=== PATIENT | female | born 1955 | race Caucasian/White ===

== ENCOUNTER 2019-07-18 13:20 | Emergency (ER) | payer OTHER, SELFPAY ==
[2019-07-18] VITALS (8 sets, daily range): BP systolic 114–155; BP diastolic 74–103; PULSE 70–174; RESP 16–35; TEMP 37.1; O2SAT 96–99; BMI 32.3
[2019-07-18] MEDS: Adenosine 6 MG/2 ML Syringe IV (13:35)
[2019-07-18] MEDS: Adenosine 6 MG/2 ML Syringe 12 MG IV ×2 (13:37→13:40)
[2019-07-18] MEDS: Ondansetron 4 MG/2 ML Vial IV (13:42)
--- NOTE | 2019-07-18 13:45 | EKG12_ITS ---
Test Reason : REPEAT Blood Pressure : / mmHG Vent. Rate : 088 BPM Atrial Rate : 088 BPM P-R Int : 168 ms QRS Dur : 084 ms QT Int : 398 ms P-R-T Axes : 069 055 058 degrees QTc Int : 481 ms Sinus rhythm with Premature supraventricular complexes Low voltage QRS (limb leads) Nonspecific ST abnormality Abnormal ECG Confirmed by AURORA MUELLER, BHANU ([id number]), editor & co founder BRAYAN NICHOLS ([id number]) on 07/19/2019 1:33:07 PM Referred By: MACKENZIE Confirmed By:BHANU SIMON MD
[2019-07-18] MEDS: dilTIAZem 25 MG/5 ML Vial 20 MG IV BOLUS (13:47)
[2019-07-18 13:52] LABS: Absolute Lymphocyte Count 2.45 X10^3/uL (0.83-4.51); Absolute Neutrophil Count 3.8 X10^3/uL (2.0-7.7); Basophil# 0.05 X10^3/uL; Basophil% 0.7 % (0-1); Eosinophil# 0.12 X10^3/uL; Eosinophils% 1.7 % (0-5); Hematocrit 42.1 % (37-47); Lymphocyte # 2.45 X10^3/ul (4.0); Lymphocyte % 34.6 % (19-41); Mean Corp Hgb Conc 33.3 g/dL (32-36); Mean Corpuscular Hgb 30.8 pg (27.0-32.0); Mean Corpuscular Volume 92.5 fL (81-99); Mean Platelet Vol. 9.1 fl (6.2-12.0); Monocyte# 0.62 X10^3/uL; Monocyte% 8.7 % (0-10); NRBC Flagged by Analyzer 0 % (0-5); Neutrophil # 3.83 X10^3/uL (2.7-7.7); Platelet Count 327 K/mm3 (150-450); RBC Distribution Width SD 40.9 fl (35.1-43.9); Red Blood Count 4.55 M/mm3 (4.2-5.4); White Blood Count 7.1 K/mm3 (4.4-11.0)
[2019-07-18 14:05] LABS: Anion Gap 10 (5-15); BUN 13 mg/dL (7-18); BUN/Creat Ratio 14.9 RATIO (10-20); Calcium,Total 8.9 mg/dL (8.5-10.1); Chloride 104 mmol/L (98-107); Creatinine, Serum 0.88 mg/dL (0.55-1.02); EST Glomerular Filtration Rate 70 mL/min (>60); Est Glom Filt Rate - Afr Amer 84 mL/min (>60); Estimated Creatinine Clearance 62.05 ml/min; Glucose 102 mg/dL (74-106); Potassium 3.5 mmol/L (3.5-5.1); Sodium Level 137 mmol/L (136-145)
--- NOTE | 2019-07-18 14:33 | EKG12_ITS ---
Test Reason : SVT Blood Pressure : / mmHG Vent. Rate : 174 BPM Atrial Rate : 170 BPM P-R Int : 000 ms QRS Dur : 098 ms QT Int : 266 ms P-R-T Axes : 000 063 038 degrees QTc Int : 452 ms Low voltage QRS (Limb Leads) ST-segment abnormality,consider metaboli effect, medication effect, myocardial ischmia Abnormal ECG Confirmed by AURORA MUELLER, BHANU ([id number]), index editor BRAYAN NICHOLS ([id number]) on 07/19/2019 1:36:01 PM Referred By: ALEXEI Confirmed By:BHANU SIMON MD
--- NOTE | 2019-07-18 14:49 | ED.VISSUMM ---
- ER Visit Summary Date of Service: 07/18/19 Chief Complaint: Chest heavy, jittery History of Present Illness: The patient is a 64 F who comes in today because her chest feels heavy and she feels jittery. She is also been feeling palpitations. It started about an hour and a half ago. She does also feel mildly short of breath with this. She has no history of SVT in the past but has had short episodes like this before that have resolved spontaneously. She denies any cardiac history. She is on no medications for blood pressure at home. Physical Examination: Vital signs reviewed. HEENT exam unremarkable. Heart is tachycardic and regular rhythm without murmurs. Lungs are clear to auscultation. Abdomen is soft and nontender. Extremities reveal no edema. Her peripheral pulses are equal. Skin exam normal. Neurologic exam normal. Test Results: Initial EKG was SVT with a rate of 160. Nonspecific changes are seen. Her labs are all normal Emergency Department Course and Treatment: The patient's initial rhythm was SVT. She was given 6 mg, then 2 doses of 12 mg of adenosine without resolution of the SVT. She was then given 20 mg of IV Cardizem IV push. She then converted to a sinus rhythm with a rate in the 80s and 90s. Her labs are all normal. Her blood pressure remained normal throughout the entire stay. I discussed with Dr. Swartz with cardiology. He recommended 25 mg of metoprolol daily. He will have his office call the patient for follow-up. Treatment Plan: [] Disposition: Discharge Impression: SVT This note was generated with [employer] dictation software. It may contain incorrect words, spelling, and punctuation that were not noted in review of the chart prior to signing ED Disposition - Plan for ED Patient: Disposition: Home or Assisted Living Instructions: ED Palpitations Prescriptions: Metoprolol Succinate [Toprol Xl] 25 mg PO DAILY #30 tab.er.24h Transmission Status: Pending to [facility]/pharmacy #[id number] Referrals: Dom Godinez MD [Primary Care Provider] -
== END 2019-07-18 15:00 | disposition home or self-care (01) ==
PROVIDERS: Emergency Provider Emergency Medicine; PCP Family Medicine
DX: I47.1 Supraventricular tachycardia (principal); F32.9 Major depressive disorder, single episode, unspecified
CPT/HCPCS: 80048; 84484; 85025; 93005; 96374; 96375; 96376; 99285; J7030; A4216; J0153; J2405

== ENCOUNTER → 2019-08-01 12:56 | Outpatient (CLI) | payer OTHER, SELFPAY ==
[2019-07-26 13:51] VITALS: BMI 32.5
--- NOTE | 2019-08-01 12:59 | ECHOD_ITS ---
Reason For Study: ARRHYTHMIA Procedure This was a 2D Doppler, Color Flow transthoracic echocardiogram. Exam performed in department. Left Ventricle Normal LV size. Left ventricular systolic function is normal. The estimated ejection fraction is 64 %. Normal diastology for age. No regional wall motion abnormalities noted. Right Ventricle Normal RV size. Normal systolic function. Atria Normal left atrium. Normal right atrium. Mitral Valve Normal mitral valve. Tricuspid Valve Normal tricuspid valve. Mild (1+) tricuspid valve insufficiency. Pulmonary artery systolic pressure is 25 mmHg. Pulmonic Valve Normal pulmonic valve. Great Vessels Normal aortic root. The pulmonary artery is normal size. Normal inferior vena cava. Pericardium/Pleural No pericardial effusion. MMode/2D Measurements & Calculations LVIDd: 4.6 cm IVSd: 0.61 cm Ao root diam: 3.0 cm LVIDs: 2.9 cm LVPWd: 0.73 cm RVDd: 3.5 cm FS: 36.7 % LAV(MOD-bp): 41.8 ml LA A4 area: 16.7 cm2 LA dimension(2D): 3.5 cm LAV(MOD-bp) Indexed: 21.8 ml/m2 LAV(MOD-sp2): 39.6 ml LAV(MOD-sp4): 44.2 ml RA A4 area: 16.2 cm2 Time Measurements MV dec time: 0.21 sec Doppler Measurements & Calculations MV E max hong: 77.1 cm/sec Lat Peak E' Hong: 12.6 cm/sec Med Peak E' Hong: 11.6 cm/sec MV A max hong: 67.6 cm/sec E/E' lat: 6.1 E/E' med: 6.6 MV E/A: 1.1 Ao V2 max: 132.5 cm/sec LV V1 max: 134.3 cm/sec PA V2 max: 106.7 cm/sec Ao max P.0 mmHg LV V1 max P.2 mmHg TR max hong: 234.5 cm/sec TR max P.1 mmHg Interpretation Summary Normal LV size. Left ventricular systolic function is normal. The estimated ejection fraction is 64 %. Structurally normal valves. Ordering Physician: Grayson Swartz Referring Physician: MD Gretchen Dom Performed By: Marcia Gregg, RDCS, RVT
== END ==
PROVIDERS: PCP Family Medicine; Referring Provider Internal Medicine Cardiovascular Disease; Visit Provider Internal Medicine Cardiovascular Disease
DX: I47.1 Supraventricular tachycardia (principal)
CPT/HCPCS: 93306

== ENCOUNTER 2019-08-13 10:52 | Emergency (ER) | payer OTHER, SELFPAY ==
[2019-07-26 13:51] VITALS: BMI 32.5
[2019-08-13 10:52] VITALS: BP 152/125; PULSE 154; RESP 16; TEMP 36.5; O2SAT 99; BMI 32.5
--- NOTE | 2019-08-13 11:02 | EKG12_ITS ---
Test Reason : REPEAT Blood Pressure : / mmHG Vent. Rate : 121 BPM Atrial Rate : 121 BPM P-R Int : 146 ms QRS Dur : 074 ms QT Int : 330 ms P-R-T Axes : 046 050 052 degrees QTc Int : 468 ms Sinus tachycardia Nonspecific ST abnormality Abnormal ECG Confirmed by ANGELA العراقي MD ([id number]), communications editor CHASIDY HERRING ([id number]) on 08/16/2019 10:51:10 AM Referred By: BONNY Confirmed By:ANGELA العراقي MD
--- NOTE | 2019-08-13 11:02 | RAD_ITS ---
STUDY: X-RAY CHEST REASON FOR EXAM: Female, 64 years old. PALPITATIONS X 2 HOURS TECHNIQUE: Frontal view COMPARISON: May 14, 2012 FINDINGS: The lungs are clear and expanded. There is no demonstrated pleural abnormality. Normal size heart. Normal mediastinum and sharla. Normal visualized pulmonary arteries. Normal visualized aortic arch and descending thoracic aorta. Normal visualized thoracic spine. Normal visualized ribs, clavicles, and shoulders. There is no demonstrated abnormality of the visualized soft tissue structures of the upper abdomen. RAD/Chest 1 View (Portable) IMPRESSION: Normal x-ray examination of the chest. Electronically Signed: Dash Reyes DO at 11:34 EDT Tel [phone], Service support ,
--- NOTE | 2019-08-13 11:04 | ED.DCSUM_ITS ---
History of Present Illness Chief Complaint: Palpitations Informant: Patient Onset: Hours - 1 hour Context: Sudden Onset Current Severity: Moderate Maximum Severity: Moderate Narrative: Patient presents with abrupt onset of rapid heart rate 1 hour ago. Patient was seen in the ER on July 17 with similar. She was found to be in SVT at that time. She was given adenosine, 6, 12, and 12 mg doses without conversion. She was then given 20 mg of IV Cardizem and converted to a sinus rhythm. Patient did follow-up with cardiology as an outpatient. She was given metoprolol to use as needed if she has further episodes. After the episode started 1 hour ago she did take 50 mg of metoprolol. Patient denies chest pain. She does have palpitations and some slight shortness of breath. - Past Medical History (1) GERD (gastroesophageal reflux disease) Status: Chronic (2) Paroxysmal supraventricular tachycardia Status: Chronic Past Medical History - Allergies and Home Meds Allergies/Adverse Reactions: Allergies No Known Allergies Allergy (Verified 07/26/19 13:52) Primary Care Physician: Dom Godinez MD [Primary Care Provider] - Doctors: Dr. Swartz Prior records reviewed: Yes Lives: Spouse/ Significant Other Smoking Status: Never smoker Review of Systems General: Denies: Chills, Fever Eyes: Denies: Visual changes - bilaterally ENT: Denies: Bilateral ear pain Cardiovascular: Reports: Palpitations, Heart racing Respiratory: Reports: Dyspnea. Denies: Cough Gastrointestinal: Denies: Abdominal pain, Nausea, Vomiting, Diarrhea Genitourinary: Denies: Dysuria Musculoskeletal: Denies: Swelling, Extremity Pain Skin: Denies: Rash Neurological: Denies: Headache Hematologic: Denies: Easy bruising, Easy bleeding Allergy: Denies: Uticaria Physical Exam Vital Signs/Narrative: Vital Signs Temp Pulse Resp BP Pulse Ox 08/13/19 10:52 97.7 F L 154 H 16 152/125 H 99 Inital Vital Signs reviewed: Yes General: Well nourished, Well developed Head: Normocephalic ENT: Moist mucous membranes Neck: Supple Cardiovascular: Tachycardia Respiratory: No distress, CTA bilaterally Abdomen: Soft, Nontender Extremities: Nontender Skin: Normal color, No rash Neurological: Alert, Oriented x3 Psychological: Normal affect Diagnostic/Tx/Re-eval Impressions Chest X-Ray 08/13/19 11:02 IMPRESSION: Normal x-ray examination of the chest. Electronically Signed: Dash Reyes DO at 11:34 EDT Tel [phone], Service support , 08/13/19 11:02 Chest 1 View (Portable) [RAD] Stat Laboratory Results 08/13/19 08/13/19 11:00 11:00 WBC 6.0 RBC 4.42 Hgb 13.6 Hct 41.4 MCV 93.7 MCH 30.8 MCHC 32.9 RDW Std Deviation 41.9 RDW Coeff of Lawanda 12.1 Plt Count 278 MPV 8.5 Immature Gran % (Auto) 0.500 Neut % (Auto) 53.8 Lymph % (Auto) 32.5 [place] % (Auto) 9.3 Eos % (Auto) 3.2 Baso % (Auto) 0.7 Absolute Neuts (auto) 3.3 Absolute Lymphs (auto) 1.96 Nucleated RBC % 0 Sodium 137 Potassium 3.6 Chloride 105 Carbon Dioxide 26.0 Anion Gap 6 BUN 13 Creatinine 0.80 Estim Creat Clear Calc 62.96 Est GFR (MDRD) Af Amer 93 Est GFR (MDRD) Non-Af 77 BUN/Creatinine Ratio 16.2 Glucose 107 H Calcium 8.7 Troponin I < 0.015 TSH 2.53 - EKG Initial EKG Interpretation: SVT - SVT at 151. Mild anterolateral ST depression. Follow-up EKG Interpretation: Sinus Tachycardia - Sinus tach at 121. Previously noted ST changes are improved. - Medical Decision Making We initially attempted vagal maneuvers without resolution of her SVT. Patient was given 6 of adenosine followed by 12 mg. She converted to a sinus tachycardia. On repeat evaluation she is resting comfortably with no further symptoms. Blood work is unremarkable. Patient had been given a prescription for metoprolol. Because she had had previous chest heaviness and reflux with beta-blockers she been told to use it as needed. After discussion with Dr. Maguire we will start the patient on Cardizem 120 mg a day. She is to follow- up with Dr. Swartz in the office for an EP referral. ED Disposition - Plan for ED Patient: Disposition: Home or Assisted Living Diagnosis: SVT (supraventricular tachycardia) Instructions: ED Tachycardia PAT Prescriptions: Diltiazem CD [Cardizem CD] 120 mg PO DAILY #30 cap Transmission Status: Pending to [facility]/pharmacy #[id number] Referrals: Grayson Swartz MD [STAFF PHYSICIAN] - As soon as possible
[2019-08-13 11:13] LABS: Absolute Lymphocyte Count 1.96 X10^3/uL (0.83-4.51); Absolute Neutrophil Count 3.3 X10^3/uL (2.0-7.7); Basophil# 0.04 X10^3/uL; Basophil% 0.7 % (0-1); Eosinophil# 0.19 X10^3/uL; Eosinophils% 3.2 % (0-5); Hematocrit 41.4 % (37-47); Hemoglobin 13.6 g/dL (12.0-15.0); Lymphocyte # 1.96 X10^3/ul (4.0); Lymphocyte % 32.5 % (19-41); Mean Corp Hgb Conc 32.9 g/dL (32-36); Mean Corpuscular Hgb 30.8 pg (27.0-32.0); Mean Corpuscular Volume 93.7 fL (81-99); Mean Platelet Vol. 8.5 fl (6.2-12.0); Monocyte# 0.56 X10^3/uL; Monocyte% 9.3 % (0-10); NRBC Flagged by Analyzer 0 % (0-5); Neutrophil # 3.25 X10^3/uL (2.7-7.7); Neutrophil % 53.8 % (47-70); Platelet Count 278 K/mm3 (150-450); RBC Distribution Width CV 12.1 % (11.6-14.6); RBC Distribution Width SD 41.9 fl (35.1-43.9); Red Blood Count 4.42 M/mm3 (4.2-5.4)
[2019-08-13 11:30] VITALS: BP 152/89; PULSE 148; RESP 15; O2SAT 98
[2019-08-13] MEDS: 0.9% Normal Saline 1,000 ML 150 ML IV (11:30)
[2019-08-13] MEDS: Adenosine 6 MG/2 ML Syringe IV (11:35)
[2019-08-13 11:36] LABS: Anion Gap 6 (5-15); BUN 13 mg/dL (7-18); BUN/Creat Ratio 16.2 RATIO (10-20); Calcium,Total 8.7 mg/dL (8.5-10.1); Chloride 105 mmol/L (98-107); EST Glomerular Filtration Rate 77 mL/min (>60); Est Glom Filt Rate - Afr Amer 93 mL/min (>60); Estimated Creatinine Clearance 62.96 ml/min; Glucose 107 mg/dL (74-106); Potassium 3.6 mmol/L (3.5-5.1); Sodium Level 137 mmol/L (136-145); Thyroid Stim Hormone (TSH) 2.53 uIU/mL (0.358-3.74)
[2019-08-13 11:41] VITALS: BP 147/83; PULSE 115; RESP 15; O2SAT 95
[2019-08-13] MEDS: Adenosine 6 MG/2 ML Syringe 12 MG IV (11:43)
--- NOTE | 2019-08-13 11:51 | EKG12_ITS ---
Test Reason : SVT Blood Pressure : / mmHG Vent. Rate : 151 BPM Atrial Rate : 039 BPM P-R Int : 000 ms QRS Dur : 088 ms QT Int : 300 ms P-R-T Axes : 000 052 025 degrees QTc Int : 475 ms Supraventricular tachycardia Nonspecific ST abnormality Abnormal ECG Confirmed by DULCE MARIA MUELLER, ANGELA ([id number]), metropolitan editor CHASIDY HERRING ([id number]) on 08/16/2019 10:50:58 AM Referred By: BONNY Confirmed By:ANGELA العراقي MD
[2019-08-13 12:00] VITALS: BP 136/79; PULSE 104; RESP 14; O2SAT 95
[2019-08-13 12:19] VITALS: PULSE 106; RESP 15; O2SAT 95
== END 2019-08-13 12:31 | disposition home or self-care (01) ==
PROVIDERS: Emergency Provider Emergency Medicine; PCP Family Medicine
DX: I47.1 Supraventricular tachycardia (principal); K21.9 Gastro-esophageal reflux disease without esophagitis
CPT/HCPCS: 71045; 80048; 84443; 84484; 85025; 93005; 96361; 96374; 96376; 99284; J7030; A4216; J0153

== ENCOUNTER → 2019-10-19 10:45 | Outpatient (CLI) | payer OTHER, SELFPAY | PROVIDERS: PCP Family Medicine; Referring Provider Internal Medicine Cardiovascular Disease; Visit Provider Internal Medicine Cardiovascular Disease | DX: Z11.59 Encounter for screening for other viral diseases (principal); I47.1 Supraventricular tachycardia | CPT/HCPCS: 87635; G2023; U0003 ==

== ENCOUNTER → 2020-03-13 16:18 | Outpatient (CLI) | payer OTHER, SELFPAY ==
[2020-03-13 15:28] VITALS: BMI 35.0
[2020-03-13 17:31] LABS: Anion Gap 5 (5-15); BUN 14 mg/dL (7-18); BUN/Creat Ratio 16.4 RATIO (10-20); Calcium,Total 9.2 mg/dL (8.5-10.1); Chloride 105 mmol/L (98-107); Creatinine, Serum 0.85 mg/dL (0.55-1.02); EST Glomerular Filtration Rate 72 mL/min (>60); Est Glom Filt Rate - Afr Amer 87 mL/min (>60); Glucose 87 mg/dL (74-106); Magnesium 2.1 mg/dL (1.6-2.6); Potassium 3.7 mmol/L (3.5-5.1); Sodium Level 137 mmol/L (136-145)
== END ==
PROVIDERS: PCP Family Medicine; Visit Provider Internal Medicine Cardiovascular Disease
DX: R00.2 Palpitations (principal)
CPT/HCPCS: 36415; 80048; 83735

== ENCOUNTER → 2020-03-15 10:27 | Outpatient (CLI) | payer OTHER, SELFPAY ==
[2020-03-13 15:28] VITALS: BMI 35.0
== END ==
PROVIDERS: PCP Family Medicine; Referring Provider Internal Medicine Cardiovascular Disease; Visit Provider Internal Medicine Cardiovascular Disease
DX: R00.2 Palpitations (principal)
CPT/HCPCS: 93225; 93226

== ENCOUNTER → 2020-04-19 12:30 | Outpatient (CLI) | payer OTHER, SELFPAY ==
[2020-03-13 15:28] VITALS: BMI 35.0
== END ==
PROVIDERS: PCP Family Medicine; Referring Provider Internal Medicine Cardiovascular Disease; Visit Provider Internal Medicine Cardiovascular Disease
DX: G47.10 Hypersomnia, unspecified (principal)
CPT/HCPCS: 95806

== ENCOUNTER → 2020-05-16 10:22 | Outpatient (CLI) | payer OTHER, SELFPAY ==
[2020-04-24 09:53] VITALS: BMI 35.2
== END ==
PROVIDERS: PCP Family Medicine; Visit Provider Nurse Practitioner Acute Care
DX: Z46.89 Encounter for fitting and adjustment of other specified devices (principal)

== ENCOUNTER → 2020-07-03 11:00 | Outpatient (CLI) | payer OTHER, SELFPAY ==
[2020-06-20 07:52] VITALS: BMI 35.0
== END ==
PROVIDERS: PCP Family Medicine; Referring Provider Nurse Practitioner Acute Care; Visit Provider Nurse Practitioner Acute Care
DX: G47.33 Obstructive sleep apnea (adult) (pediatric) (principal)
CPT/HCPCS: 98960; G0463

== ENCOUNTER → 2020-08-02 | Outpatient (CLI) | payer OTHER, SELFPAY ==
[2020-06-20 07:52] VITALS: BMI 35.0
--- NOTE | 2020-08-02 | CYSPIN_PTH ---
PATIENT: SANTIAGO GUADALUPE LOC: [facility] U#:[id number] AGE/SX: 65/F ROOM: RE08/02/[address]: Dr. Kelly Uribe MD : [id number] BED: DIS: 08/02/2020 SPEC #: [id number] RECD: 08/03/20 08:03 STATUS: BRUCE RESelena #: [id number] DAVID: 08/02/20 00:[address]: Kelly Uribe DEPT: CYTOLOGY RECD BY: Tori Jenkins ENTERED: 08/03/20 08:04 SP TYPE: CYSPIN FL OTHR DR: Dr. Dom Godinez MD Tissues: Urine Procedures: Pap Stain (control) Special Stain Group II Cytospin Fluid HEADER OPERATION: Not noted PRE-OP DIAGNOSIS: UTI, gross hematuria TISSUE SUBMITTED: Urine for cytology DIAGNOSIS CYTOLOGY Urine for cytology (cytospin): Negative for malignant cells. Acute inflammation. See comment. SJ:gabe 08/03/2020 COMMENT The specimen predominantly consists of squamous epithelial cells. Clinical correlation and appropriate follow up are necessary. CYTOLOGY STUDY Slides are reviewed. CYTOLOGY GROSS Received is 10 ml of yellow cloudy fluid labeled with the patient's name and and designated per the requisition as urine. Submitted for cytology preparation. / gabe 08/02/20 TC:2 CPT: 03688
[2020-08-02 17:56] LABS: Cytology, Body Fluid / CSF SEE PATHOLOGY REPORT
== END | disposition home or self-care (01) ==
PROVIDERS: PCP Family Medicine; Visit Provider Urology
DX: N39.0 Urinary tract infection, site not specified (principal); R31.0 Gross hematuria
CPT/HCPCS: 88108; 88313

== ENCOUNTER → 2020-08-20 15:04 | Outpatient (CLI) | payer OTHER, SELFPAY ==
[2020-06-20 07:52] VITALS: BMI 35.0
--- NOTE | 2020-08-20 15:08 | CT_ITS ---
STUDY: CT ABDOMEN AND PELVIS WITH AND WITHOUT CONTRAST REASON FOR EXAM: Female, 65 years old. GROSS Hematuria, uti RADIATION DOSAGE (If Supplied By Facility): CTDIvol = ( 19.93 ) mGy, DLP = ( 3318.19 ) mGycm TECHNIQUE: Transaxial images were obtained from the dome of the diaphragm to the symphysis pubis without oral contrast. IV 100mL Isovue-300 was administered. Sagittal and coronal images were reconstructed. Individualized dose optimization techniques were used for this CT. COMPARISON: None. FINDINGS: The visualized lung bases are unremarkable. The visualized portions of the heart are within normal limits. Normal liver. Normal gallbladder and extrahepatic biliary system. Normal spleen. Normal pancreas. Normal bilateral adrenal glands. Normal right kidney. Punctate calculus in the lower pole calyx of the left kidney. There is a small hiatal hernia. Normal small intestine. Normal colon. The appendix is visualized and appears normal. Normal abdominal aorta. Normal inferior vena cava. There is borderline retroperitoneal lymphadenopathy with enlarged nodes no greater than 10mm in the short axis diameter. Normal urinary bladder. There is a small umbilical hernia containing fat. Normal osseous structures. CT/CT Abd/Pelvis W/WO Contrast IMPRESSION: Punctate calculus in the lower pole calyx of left kidney. Small hiatal hernia. Electronically Signed: Pancho Kiran MD at 8:39 EDT , Service support ,
== END ==
PROVIDERS: PCP Family Medicine; Referring Provider Urology; Visit Provider Urology
DX: N39.0 Urinary tract infection, site not specified (principal); R31.0 Gross hematuria; N20.0 Calculus of kidney; K44.9 Diaphragmatic hernia without obstruction or gangrene
CPT/HCPCS: 74178; Q9967

== ENCOUNTER 2020-08-24 15:30 | Emergency (ER) | payer OTHER, SELFPAY ==
[2020-06-20 07:52] VITALS: BMI 35.0
[2020-08-24 15:31] VITALS: BP 154/54; BP 172/69; PULSE 147; PULSE 148; RESP 17; RESP 19; TEMP 36; TEMP 36.4; O2SAT 97; O2SAT 98; BMI 33.7; BMI 36.5
[2020-08-24 15:47] VITALS: BP 142/96; PULSE 105; RESP 20; O2SAT 98
--- NOTE | 2020-08-24 15:54 | EKG12_ITS ---
Test Reason : SVT Blood Pressure : / mmHG Vent. Rate : 104 BPM Atrial Rate : 104 BPM P-R Int : 182 ms QRS Dur : 096 ms QT Int : 360 ms P-R-T Axes : 081 049 076 degrees QTc Int : 473 ms Sinus tachycardia Nonspecific ST abnormality Abnormal ECG Confirmed by DULCE MARIA MUELLER, ANGELA ([id number]), editorial clerk MARQUISE VERA ([id number]) on 08/28/2020 9:34:36 AM Referred By: LASHAE Confirmed By:ANGELA العراقي MD
--- NOTE | 2020-08-24 15:54 | EX.ED.DYSGE1 ---
HPI History of Present Illness Chief Complaint: Palpitations Informant: patient Narrative Narrative: 65-year-old female presents to the emergency department with palpitations. Patient has a history of SVT. She states she currently is on flecainide and diltiazem therapy. She follows locally with Dr. Swartz. She has seen [facility] electrophysiology last summer for an ablation. She states that she took an extra diltiazem and waited an hour nothing changed so she came in. [facility] Medical History (Updated 08/24/20 @ 15:[address] Mj Sigala DO) AVNRT (AV jaleel re-entry tachycardia) Cervical spondylosis without myelopathy Daytime hypersomnia Finding of multiple premature atrial contractions by electrocardiography GERD (gastroesophageal reflux disease) History of depression Hypersomnia Intermittent palpitations Obesity Home Medications estradiol 0.5 mg PO DAILY 04/05/15 [History Last Taken 07/18/19] omeprazole 40 mg PO DAILY 04/05/15 [History Last Taken 07/17/19] fluoxetine 60 mg PO DAILY 07/18/19 [History Last Taken 07/18/19] alprazolam 0.5 mg tablet 0.5 mg PO DAILY PRN tab 07/26/19 [History Last Taken Unknown] medroxyprogesterone 2.5 mg tablet 2.5 mg PO DAILY 07/26/19 [History Last Taken Unknown] diltiazem HCl 120 mg capsule,extended release 24 hr 120 mg PO DAILY #30 cap 02/13/20 [Rx Last Taken Unknown] buspirone 10 mg tablet 5 mg PO BID tab 03/13/20 [History Last Taken Unknown] flecainide 100 mg tablet 100 mg PO BID tab 04/24/20 [History Last Taken Unknown] ropinirole 0.5 mg tablet 0.5 mg PO DAILY #60 tab 06/20/20 [Rx Last Taken Unknown] Allergy/AdvReac Type Severity Reaction Status Date / Time metoprolol AdvReac severe Verified 08/24/20 15:31 fatigue Family History Father Colon cancer Daughter Thyroid disorder Surgical History History of radiofrequency ablation procedure for cardiac arrhythmia (10/24/19) History of tubal ligation uterin ablation Social History Smoking Status: Never smoker alcohol intake: current alcohol intake frequency: holidays/special occasions only caffeine: Yes Type: coffee Number of servings: 1 ROS ROS ED Constitutional Constitutional ED: Denies chills or weight loss Eyes Eyes: Denies change in vision or diplopia ENT ENT ED: Denies ear pain, rhinorrhea or sore throat Cardiovascular Cardiovascular: Reports palpitations and racing heartbeat; Denies chest pain or orthopnea Respiratory/Chest Respiratory/Chest: Denies cough, dyspnea or orthopnea Gastrointestinal Gastrointestinal: Denies abdominal pain, diarrhea, nausea or vomiting Genitourinary Genitourinary ED: Denies dysuria, hematuria or urinary frequency Musculoskeletal Musculoskeletal: Denies arthralgias or myalgias Integumentary Denies abscess or rash Neurologic Neurologic: Denies headache(s) or weakness Psychiatric Psychiatric: Denies anxiety, depression, suicidal ideation or suicidal thoughts Endocrine Endocrinology: Denies polydipsia, polyphagia or polyuria Allergic/Immunologic Allergic/Immunologic ED: Denies mouth swelling, tongue swelling or urticaria EXAM Physical Exam Const Vital Signs: 08/24/20 15:31 08/24/20 15:43 08/24/20 15:47 Temperature 96.8 F L Temperature Source Temporal Pulse Rate 147 H 105 H Respiratory Rate 19 H 20 H Respiratory Effort Short of Breath Blood Pressure 172/69 H 142/96 H Blood Pressure Mean 103 111 Pulse Ox 97 98 Oxygen Delivery Method Room Air Room Air 08/24/20 16:35 Temperature Temperature Source Pulse Rate 85 Respiratory Rate 16 Respiratory Effort Blood Pressure 106/84 H Blood Pressure Mean 91 Pulse Ox 97 Oxygen Delivery Method Room Air Positive well nourished and well developed General Appearance ED: well developed HEENT Reports normocephalic, head/scalp atraumatic and moist mucous membranes Eyes PERRL and EOMs intact bilaterally Neck no lymphadenopathy, supple and no JVD Resp normal respiratory effort and clear to auscultation bilaterally Cardio regular rate, regular rhythm and no murmurs GI normal to inspection, nondistended, normoactive bowel sounds and non-tender Palpation: soft Back/Spine no CVA tenderness and normal ROM Extremity normal to inspection General Extremety ED: Negative for edema General Extremity: Negative for edema Neuro oriented x3 and CN's II-XII intact bilaterally Sensorium / Orientation: alert Motor Exam: strength 5/5 throughout Psych mental status grossly normal Mood & Affect: Negative for depressed or tearful Skin no rashes or lesions noted and no wounds MDM MDM MDM Narrative Medical decision making narrative: The patient converted while IV was being started. We will observe her. Patient was watched for approximate 45 minutes. Her heart has been in a sinus rhythm in the mid 80s. Very little ectopy. Plan will be follow-up with cardiology. EKG Initial EKG: Attestation: I personally reviewed and interpreted this EKG as follows: Comments: EKG shows a sinus tachycardia at a rate of 104. Discharge Plan Triage Chief Complaint: Palpitations ED Provider: Mj Sigala Dx/Rx/DC Orders Clinical Impression: SVT (supraventricular tachycardia) Instructions: ED Tachycardia: PAT Prescriptions: No Action alprazolam 0.5 mg tablet 0.5 mg PO DAILY PRN (Reason: anxiety) RF: 0 buspirone 10 mg tablet 5 mg PO BID RF: 0 flecainide 100 mg tablet 100 mg PO BID RF: 0 ropinirole 0.5 mg tablet 0.5 mg PO DAILY Qty: 60 RF: 1 omeprazole 40 MG capsule 40 mg PO DAILY RF: 0 estradiol 0.5 MG tablet 0.5 mg PO DAILY RF: 0 medroxyprogesterone 2.5 mg tablet 2.5 mg PO DAILY RF: 0 fluoxetine 40 MG capsule 60 mg PO DAILY RF: 0 diltiazem HCl 120 mg capsule,extended release 24hr 120 mg PO DAILY Qty: 30 RF: 11 Primary Care Provider: Dom Godinez Referrals: Grayson Swartz MD [STAFF PHYSICIAN] - As soon as possible Dom Godinez MD [Primary Care Provider] - Disposition Disposition: Home, self care
[2020-08-24 16:35] VITALS: BP 106/84; PULSE 85; RESP 16; O2SAT 97
[2020-08-24 16:59] VITALS: BP 126/80; PULSE 85; RESP 16; O2SAT 98
== END 2020-08-24 16:59 | disposition home or self-care (01) ==
LOC: ED 16:16
PROVIDERS: Emergency Provider Emergency Medicine; PCP Family Medicine
DX: I47.1 Supraventricular tachycardia (principal); K21.9 Gastro-esophageal reflux disease without esophagitis; F32.9 Major depressive disorder, single episode, unspecified; E66.9 Obesity, unspecified; Z68.36 Body mass index [BMI] 36.0-36.9, adult; Z79.899 Other long term (current) drug therapy
CPT/HCPCS: 93005; 99284; A4216

== ENCOUNTER → 2021-01-08 15:54 | Outpatient (CLI) | payer OTHER, SELFPAY ==
[2021-01-08 16:34] LABS: Anion Gap 7 (5-15); BUN 12 mg/dL (7-18); BUN/Creat Ratio 14.1 RATIO (10-20); Chloride 105 mmol/L (98-107); Creatinine, Serum 0.85 mg/dL (0.55-1.02); EST Glomerular Filtration Rate 71 mL/min (>60); Est Glom Filt Rate - Afr Amer 86 mL/min (>60); Glucose 93 mg/dL (74-106); Magnesium 2.2 mg/dL (1.6-2.6); Sodium Level 138 mmol/L (136-145); Thyroid Stim Hormone (TSH) 1.52 uIU/mL (0.358-3.74)
== END ==
PROVIDERS: PCP Family Medicine; Referring Provider Nurse Practitioner Gerontology; Visit Provider Nurse Practitioner Gerontology
DX: I47.1 Supraventricular tachycardia (principal)
CPT/HCPCS: 36415; 80048; 83735; 84443

== ENCOUNTER 2021-09-02 08:00 | Outpatient (RCR) | payer OTHER, SELFPAY ==
--- NOTE | 2021-09-02 08:54 | BH.COMM ---
Communication Note - Communication with Client Communication Note: Met with patient to complete initial paperwork. No significant changes since pre-admission screening. Completed [facility] Suicide Screening. Low to moderate risk. Pt has no hx of prior suicide attempts or hospitalizations. Hx of passive thoughts of not caring if something happened to her or if she did not wake up, but not for the past 5 years. Denies any hx of plan or intent. Denies hx of self-harm or vik risk behaviors. Denies access to lethal means. Pt denies hx of HI, plan or intent. Case discussed with Dr. Fritz with plan to admit to IOP level of care with dx of Major depressive disorder, recurrent, severe without psychosis, F33.2
--- NOTE | 2021-09-02 11:10 | BH.SGPN.GN ---
Behaviors/Verbalizations/Mental Status: []Client alert and oriented, casually dressed and groomed. Eye contact fair to good. Motor activity appropriate. Speech within normal limits. Affect congruent, mood anxious and depressed. Thoughts linear, logical, no signs of hallucinations or delusions. Client Response/Progress/Benefit: []Pt responded well to session AEB taking notes and providing input and examples throughout. Group discussed the different categories of coping skills which included distraction, emotional release, grounding, self-love, and thought challenging. Pt created a coping skill menu identifying various skills to try in each category. Pt?s coping skill menu included: spending time with pets, taking walks, yoga, reducing how much pt apologizes, and reminding self that thoughts are thoughts not facts. Appeared to benefit from increasing repertoire of healthy coping skills. Pt?s first day of IOP tx. Will continue tx to prevent decompensation, improve overall functioning, and gain healthy coping skills. Narrative Note: []
--- NOTE | 2021-09-02 12:41 | BH.PSY.EVA_ITS ---
Psychiatric Evaluation Initial Evaluation Initial Evaluation: History of Present Illness: [] The patient is a 66-year-old female with a history of depression and anxiety who was referred to the [facility] behavioral health IOP program by her outpatient psychiatric provider for worsening depression for the past several months. The patient currently lives with her of 11 years who is very supportive of her. 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 During COVID she did return to work and helped out during COVID and this ended 6 months ago. Her daughter has been going through her divorce in the past 6 to 8 months and the patient was very close to her daughter and her daughter's and this has also been a stressor and upsetting to her. She feels it is possible that this daughter's divorce has triggered the patient's feelings about her very difficult divorce that happened from her first 14 years ago. Her ex- was a conveyor line bakery worker and he had affairs for 5 years with 2 of the patient's female friend's and the patient was not aware of it for 5 years. One of the friends was the patient's best girlfriend. She states that it was a very difficult divorce 14 years ago but she was doing better until recent months. She became very depressed and was thinking quite negatively about herself. She states that she hates herself and she has hit her self her whole life but it is much worse lately. She has been isolating due to her depressed mood, lack of motivation and difficulty functioning at home. She has had some recent medication changes that she feels have given her more energy but her low self-esteem persists according to the patient. The patient's mood was severely depressed but has improved since the medication changes were made several months ago. For primary support she has her current and a girlfriend. She was feeling overwhelmed and exhausted in recent months. She endorses crying spells, sadness, hopelessness, worthlessness, guilt. She enjoys taking care of her baby checks and a few other things lately. Her appetite and sleep are okay and she is getting 8 hours of sleep at night. Her energy level is still not up to normal but it has improved since the recent medication changes. Concentration waxes and wanes but could be better. She states that she has felt guilty my whole life. She has a lot of social anxiety now which is the worst part of her anxiety and she dreads any social interaction and has been canceling plans with family and friends. She is worrying a lot lately and ruminating negatively especially on her past divorce in recent months. She feels safer at home but is able to go out when she has to but again dreads social functions. She is having passive thoughts that she would not care if she . She denies active suicidal ideation or plan for suicide but she does admit to occasional passive, fleeting suicidal ideation. She denies homicidal ideation, hallucinations, delusions or symptoms of edy ever. The patient used to rely on her shinto for support but since her was a conveyor line bakery worker she has not been to shinto since 2019 when the pandemic hit and she misses this a little. She denies panic attacks, OCD, eating disorder. She does feel she has some trauma from her very difficult divorce 14 years ago and she has had nightmares, flashbacks and avoidance from this. Current Psychiatric Medications: [] Prozac 60 mg p.o. daily (x30 years, on this dose for 5 years); Wellbutrin SR 100 mg p.o. every morning (x4 to 5 months); Lamictal 150 mg p.o. daily (x4 to 5 months); Xanax 0.25 mg she takes about once a month as needed for severe anxiety. Past Psychiatric History: [] She has no psychiatric admissions ever. No suicide attempts ever. She has a psych nurse practitioner and a counselor. She took Wellbutrin XL before the SR and she could not sleep so that was changed to SR and she only takes it in the morning instead of twice daily. She tends to be constipated. Her first counseling was 12 years ago. She was first depressed in college. She first took medication for depression at age 27 and has mostly been on medication since then. She once tried to stop wean her Prozac and stop it on her own and she had difficulty so went back on it. She also was on Cymbalta for 2 months many years ago and she feels she may have had side effects on it. No other psych meds ever. Substance Use History: [] Non-smoker. No vaping. No marijuana. No drug use. No rehab. Alcohol use only once every 3 months. 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 She had a uterine ablation in the past and a tubal ligation. She is a 3 para 3 Ab0 female with a history of 3 vaginal deliveries without complications. She is postmenopausal. Family Psychiatric History: [] Mother at age 72 as a pedestrian and was run over by a car. Father at age 60 from cancer. Mother and her daughter have depression and possible bipolar disorder.; Both of her siblings have depression and anxiety. Maternal first cousin completed suicide. Maternal cousins have drug addiction and alcohol problems. Personal/Social History: [] The patient was born in [place] raised [place] and moved to [place] after her divorce 14 years ago. She describes her childhood as happy but we walked on egg shells due to my mother's moods. Her mother's moods changed a lot and her mother was abusive verbally and emotionally gave the silent treatment to her children on a regular basis. The patient denies physical or sexual abuse. Her father was kind and loving but he was very passive and the patient has some anger he had him for not sticking up for his children. School was good for her and she graduated high school went to [employer] to get a BS in nursing. 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 She retired about 5 years ago but helps out with education for nursing on occasion. 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 The patient is the middle child and has a sister 2 years older and her brother 7 years younger than her and she is close to both of them. She was for the first time at age 23 and it lasted 25 years. They had 3 children ages 40, 37 and 32 years and the patient has 12 grandchildren whom she is pretty close to. The patient's ex- was a conveyor line bakery worker and he had affairs with 2 of her close girlfriends for 5 years before she even found out in this divorce was very difficult and traumatic for her. She has not been to shinto in several years she feels due to the reemergence of bad feelings about her divorce. Her second marriage was 11 years ago and it is really good and her current is 59 years old and works as a nurse practitioner and they live together and he is very supportive. 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 Review of Systems: [] The patient has some restless legs syndrome on occasion and occasional heart rhythm issues but otherwise review of systems is negative except as noted in present illness. Vital Signs: [] Vital signs and exam were reviewed in nurses notes and updated and the patient is found medically able to complete the IOP program. Mental Status Examination: [] The patient is a 66-year-old female who appears normal for stated age and is casually dressed and groomed with good hygiene. The patient is not wearing a mask. The patient has normal ambulatory gait and has no psychomotor agitation or retardation. Eye contact is good and mood is depressed. Affect is constricted. Thought process is goal-directed and organized. Thought content: There is evidence of passive thoughts of and fleeting suicidal ideations at times which are passive in nature. There is no evidence of active suicidal ideation or definite plan for suicide. There is no evidence of homicidal ideation, hallucinations, delusions or symptoms of edy. Diagnoses: [] 1. Major depressive disorder, recurrent, severe without psychosis 2. Social anxiety disorder (F40.11) 3. Obstructive sleep apnea 4. History of restless leg syndrome 5. Primary support issues Plan: [] The patient will start the IOP program at [facility] as the structure, support, education and group therapy will hopefully prevent worsening of the patient's symptoms which could require hospitalization. She felt safe during the interview and if it anytime she does not feel safe she will let us know or go to the emergency room. The risks, options, possible complications and side effects of the medications were discussed with the patient and she understands and accepts these. Long discussion was had regarding the possibility of weaning the patient's Prozac since she has been on it for many years. The patient agrees to decrease her Prozac to 40 mg p.o. daily. In addition she will start Zoloft 25 mg p.o. every morning for 1 week an d then increase to 50 mg p.o. daily if tolerating it well. I will see the patient in follow-up in 2 weeks and she will continue to follow-up with her outpatient providers. Discussion was had of the importance of becoming aware when the patient is doing negative thoughts and negative rumination which is habitual for her. She agrees to try to stop some of this negative thinking. In addition she will do everything she can to improve her spirituality and fill her life with some of the things that refuel her.
--- NOTE | 2021-09-02 12:58 | BH.DR.ITP ---
Initial Treatment Plan Patient Information Visit Information: ADMISSION DATE: EXPECTED LOS: 4-6 weeks Problems/Symptoms Problem #1:: Depression Symptom:: Sadness, hopelessness, worthlessness, guilt, low energy, decreased concentration, passive thoughts of , fleeting suicidal ideation Problem #2:: Anxiety Symptom:: Worry, rumination, avoidance of social activity, flashbacks, nightmares
--- NOTE | 2021-09-02 12:59 | BH.DR.ITP ---
Initial Treatment Plan Patient Information Visit Information: ADMISSION DATE: EXPECTED LOS: 4-6 weeks
--- NOTE | 2021-09-02 15:06 | BH.MDN_ITS ---
Multi-Disciplinary Note - Note 30-min Individual Time Started:: 12:00 Date: 09/02/21 Purpose of session/treatment goals addressed:: To gather information on client's current stressors, symptoms, triggers, and tx goals. Another goal was to build rapport, provide psychoeducation, and provide emotional support. Eye Contact:: Good Motor Activity:: Appropriate Appearance:: Neat Speech:: Appropriate Mood:: Anxious, Depressed Affect:: Congruent Thoughts:: Linear, Logical, No evidence of hallucinations/delusions noted Staff Interventions:: psychoeducation on: - maintenance cycles, rapport building, strengths perspective, treatment planning - gathered pt's goals for IOP, other - gathered additional psychosocial information Client Response:: Pt responded well to session, open to meeting with therapist. Pt reports she has been depressed for my entire adult life but her symptoms have recently gotten much worse. Pt stated she had a very bad divorce many years ago and now her daughter is going through a divorce. Pt reports belief this could be triggering emotions, thoughts, and somatic issues that occurred during pt's divorce. Pt shared she is ready to get better and set multiple goals for treatment. Pt's goals included: breaking the cycle of self-loathing, having freedom back in her life by not letting her emotions control her, reducing isolating, gaining healthy coping skills, and further processing her divorce tr iggers. Discussed recent triggers that could be contributing to her worsening symptoms and pt mentioned her daughter's divorce. Pt also reported she has been noticing very negative self-talk within the past few months. Pt stated she tells herself she is a loser, not enough, and should be better along. Pt receptive to learning about maintenance cycles and connected with the maintenance cycle for depression. Pt is hopeful that with IOP and her recent medication change that she will get better. Risks/Concerns:: Pt denies any active suicidal ideations, plan, or intent as of 09/02/21. Admits to having thoughts that she would not care if she , but pt shared I have grandkids I want to be around for. Pt denies any HI. future oriented and motivated. Progress Toward Goals/Plan:: Pt's first day of IOP tx. Pt shared she has social anxiety, so group therapy is out of her comfort zone, but pt is willing to do anything at this point. Pt currently endorses a depressed mood, lack of motivation, worthlessness, poor sleep, guilt, and history of fleeting passive SI. Pt reports her symptoms are taking away her freedoms in life and make it hard to do much of anything except lay in bed. Pt has outpatient counseling at [facility] and psychiatry through [facility]. Pt will continue IOP tx to prevent decompensation, increase healthy coping skills, and improve overall functioning. Time Stopped:: 12:20
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
--- NOTE | 2021-09-02 15:08 | BH.MTP_ITS ---
[facility] Treatment Plan - Patient Information Program Physician:: Dr. Shanthi Wayne Primary Therapist:: Annamaria PURCELL - Psychiatric Diagnoses Psychiatric Diagnoses:: Major depressive disorder, recurrent, severe without psychosis F 33.2; Social anxiety disorder F 40.11 Diagnosis Code(s):: F33.2 - Estimated LOS Estimated LOS (in weeks):: 6 Problem/Goal #1 - Problem/Goal #1 Stated Goal:: Pt will reduce depressive symptoms, worthlessness and guilt, and hopelessness due to major depressive disorder. Description of Barriers: Pt has a history of very negative self-talk and core beliefs. Pt also had a significantly difficult divorce years ago and now her daughter is going through a difficult divorce. Pt reports belief this could be contributing to her worsening symptoms. Functional Impact: Pt is a 66-year-old woman with a history of depression and anxiety. Pt was referred to [facility] by her outpatient neuro psych sales specialist due to worsening depression, anxiety, and limited benefit from traditional outpatient counseling alone. Pt reports over the past few months her negative self-talk has gotten very bad and pt states she hates myself. Pt also endorses worthlessness, hopelessness, crying spells, guilt, low concentration, isolation, and lack of energy. Pt admits to having fleeting SI, but denies any active SI, plan, or intent. Pt shares she has been avoiding things, spending majority of her time watching TV, and struggles to complete daily tasks. Pt also endorses anxiety and reports dreading social interactions. Pt reports symptoms could be triggered by her daughter going through a divorce which has triggered pt's past traumatic divorce. Pt's symptoms are currently impacting her social, familial, and daily functioning. Goal Relevant Strengths/Supports: Pt is motivated and is established with outpatient counseling and psychiatry. - Objectives Objective #1 Stated Objective: Pt will learn and utilize 2-3 healthy coping strategies to better manage depressive symptoms as shown by a reduced DSM-5 scores for depression and SI. Interventions: Through group and individual sessions, therapist will help pt identify triggers and warning signs of depression and emotional dysregulation including emotional, physical, and behavioral changes. Therapist will teach pt various coping skills to manage her symptoms and give pt tangible resources to use to regulate emotions. Therapist will use cognitive restructuring techniques and help pt gain awareness of negative thoughts that reinforce guilt and depression. Therapist will provide psychoeducation on maintenance cycles and help pt learn ways to break unhealthy maintenance cycles. Therapist will help pt incorporate behavioral activation and assist pt in setting SMART goals. Discharge Criteria: Pt will have met this goal when can report learning and using at least 2 coping skills to manage depressive symptoms. Additionally, pt will have met this goal when depressive symptoms and SI have reduced on the DSM-5 scale. Target Date: 10/14/21 Review Date: 09/23/21 Status: open Objective #2 Stated Objective: Pt will identify at least 2-3 negative self-talk messages used to reinforce negative core beliefs and replace thoughts with positive, realistic messages. Interventions: therapist will help pt identify distorted, negative beliefs about self and replace with more realistic, affirmative messages. Therapist will use CBT to help pt increase insight to the connection between thoughts, emotions, and behaviors. Therapist will encourage pt to practice thought challenging. Discharge Criteria: Pt will have achieved this goal when can verbalize at least 2 negative self-talk messages and effectively replace those thoughts with affirmative, realistic messages. Target Date: 10/14/21 Review Date: 09/23/21 Status: open Problem/Goal #2 - Problem/Goal #2 Stated Goal:: Pt will reduce social anxiety while increasing ability to function on daily basis. Description of Barriers: Pt has a history of very negative self-talk and core beliefs. Pt also had a significantly difficult divorce years ago and now her daughter is going through a difficult divorce. Pt reports belief this could be contributing to her worsening symptoms. Functional Impact: Pt is a 66-year-old woman with a history of depression and anxiety. Pt was referred to [facility] by her outpatient neuro psych sales specialist due to worsening depression, anxiety, and limited benefit from traditional outpatient counseling alone. Pt reports over the past few months her negative self-talk has gotten very bad and pt states she hates myself. Pt also endorses worthlessness, hopelessness, crying spells, guilt, low concentration, isolation, and lack of energy. Pt admits to having fleeting SI, but denies any active SI, plan, or intent. Pt shares she has been avoiding things, spending majority of her time watching TV, and struggles to complete daily tasks. Pt also endorses anxiety and reports dreading social interactions. Pt reports symptoms could be triggered by her daughter going through a divorce which has triggered pt's past traumatic divorce. Pt's symptoms are currently impacting her social, familial, and daily functioning. Goal Relevant Strengths/Supports: Pt is motivated and is established with outpatient counseling and psychiatry. - Objectives Objective #1 Stated Objective: Pt will identify 2-3 anxiety triggers and 2 coping skills to use when feeling anxious to manage anxiety as shown by decreasing DSM-5 scores for anxiety. Interventions: Therapist will provide education on anxiety, avoidance behaviors, and maintenance cycles. Therapist will help pt explore personal symptoms and warning signs of anxiety. Therapist will teach pt coping skills to improve emotional regulation, mindfulness, and distress tolerance to help pt cope with anxiety in the moment. Discharge Criteria: Pt will have accomplished this goal when can identify at least 2 triggers and report using 2 coping skills to manage anxiety. Additionally, pt will have accomplished this goal when DSM-5 scores show a reduction for anxiety. Target Date: 10/14/21 Review Date: 09/23/21 Status: open Objective #2 Stated Objective: Pt will reduce avoidance behaviors that reinforce anxiety by setting 1-2 small exposure goals a week to increase socialization, increase mastery, and reduce anxiety over time. Interventions: Through group and individual sessions, pt will learn about the benefits of setting exposure goals to overcome anxiety-producing situations. Therapist will help pt set SMART goals and challenge barriers. Therapist will use cognitive restructuring techniques and help pt gain awareness of negative thoughts that reinforce avoidance behaviors and fear of judgement. Therapist will help pt incorporate mindfulness, opposite action, and self-talk strategies to manage anxiety. Discharge Criteria: Pt will have accomplished this goal when can report accomplishing at least one small exposure goal a week. Additionally, pt will be able to report decreased avoidance behaviors. Target Date: 10/14/21 Review Date: 09/23/21 Status: open
--- NOTE | 2021-09-03 09:10 | BH.SGPN.GN ---
Behaviors/Verbalizations/Mental Status: [] Eye contact is good. Motor activity is appropriate. Appearance is casual. Speech is Appropriate. Mood is anxious. Affect is congruent. Thoughts are linear and logical. No evidence of psychosis. Reviewed daily check in sheet and no reports of suicidal ideations or intent. Client Response/Progress/Benefit: [] Pt was an active participant in group discussion. Attentive. Mental health win is I'm trying to pay more attention to the things that I enjoy. Attempting to utilize and incorporate self-care into her routine. Shared her struggles with mental health, social discomfort, and isolation over the past year. Shared that she will often distract herself infront of the TV for several hours which leads to feeling guilty, believing she is a failure, and numerous other negative automatic thoughts. She has these negative automatic thoughts throughout the day which is impacting her functioning making leaving her comfort zone difficult. Group was supportive and provided strategies that have worked for them in the past to challenge and work through negative automatic thoughts which was beneficial. Slight progress noted per pt report. Will continue in IOP to prevent decompensation, increase healthy coping, and improve functioning. Narrative Note: []
--- NOTE | 2021-09-03 10:12 | BH.SGPN.GN ---
Behaviors/Verbalizations/Mental Status: []Client alert and oriented, neatly dressed and groomed. Eye contact good. Motor activity appropriate. Speech within normal limits. Affect congruent, mood anxious. Thoughts linear, logical, no signs of hallucinations or delusions. Client Response/Progress/Benefit: []Client responded well to session AEB client listening attentively to others and taking notes. Client was engaged throughout discussion introducing the topic of self care and its importance. Group identified myths about self care, such as self care is selfish, takes too much time, has to be fun, and has to be earned.Client discussed myth of self care having to be fun, giving the example of setting boundaries isn't fun but necessary. Attentive as group identified self-care benefits to include: improved mood, reduce stress, increased resilience, and help maintain stability. Client appeared to benefit from increased knowledge of the importance and benefits of self care. Will continue IOP treatment to increase social connection to supports and decrease feelings of hopelessness.
--- NOTE | 2021-09-03 11:20 | BH.SGPN.GN ---
Behaviors/Verbalizations/Mental Status: [] Client alert and oriented, neatly dressed and groomed. Eye contact good. Motor activity appropriate. Speech within normal limits. Affect congruent, mood anxious and depressed. Thoughts linear, logical, no signs of hallucinations or delusions. Client Response/Progress/Benefit: [] Client second day in group, anxious but remaining an engaged participant. Participated throughout group discussion on the various areas of self-care, benefits, and types of self-care activities for each area. Client completed worksheet which identified current self-care practices and what self-care activities client wants to start using. Client selected emotional self-care as an area to begin practicing more consistently. Client plans to do this by opening up to supports about her mood more often. Client reports doing well with financial self-care and would like to continue to focus on maintaining self-care in this area by having a 24-hour wait period on new purchases. Appeared to benefit from completing the self-care evaluation and gaining insights into current self-care practices, as well as identifying areas in which she would like to improve upon. Will continue IOP tx to continue to promote mood stability, improve depression and anxiety management and consistent skill application, as well as prevent decompensation. Narrative Note: []
--- NOTE | 2021-09-05 10:10 | BH.SGPN.GN ---
Behaviors/Verbalizations/Mental Status: []Pt alert and oriented, neatly dressed and groomed. Eye contact good. Motor activity appropriate. Speech within normal limits. Affect congruent, mood euthymic and anxious. Thoughts linear, logical, no signs of hallucinations or delusions. Client Response/Progress/Benefit: []Pt responded well to session AEB sharing and listening attentively to others. Group provided examples of benefits of having social support, including: validation, increased resilience, and better symptom management. Pt also participated in group discussion regarding the barriers to accessing support including personal examples like: negative self-talk, avoidance, not responding when people reach out, and fear of vulnerability. Pt participated in experiential activity illustrating the impact communication, boundaries, and patience play in creating healthy support systems. Pt appeared to benefit from increased knowledge of the benefits of social support and greater self-awareness. Will continue IOP tx to prevent decompensation, reduce negative self-talk, and improve overall functioning. Narrative Note: []
--- NOTE | 2021-09-05 11:10 | BH.SGPN.GN ---
Behaviors/Verbalizations/Mental Status: []Pt alert and oriented, neatly dressed and groomed. Eye contact good. Motor activity appropriate. Speech within normal limits. Affect congruent, mood euthymic and anxious. Thoughts linear, logical, no signs of hallucinations or delusions. Client Response/Progress/Benefit: []pt was an active participant throughout AEB contributing to discussion, providing personal examples, and taking notes. Pt provided input during discussion on the types of support our supports can provide. Pt able to identify current support system and barriers that get in the way of using supports. Pt reported after identifying what type of supports pt receives, pt gained awareness that pt could benefit from more tangible support. Pt wants to work on asking for help with planning her ?[employer]? for her 12 grandchildren rather than doing it all herself. Pt shared this would reduce pt?s stress and help pt feel less responsible for other people?s happiness. Pt seemed to benefit from identifying the type of support pt needs to work on improving. Pt recommended to continue IOP tx to prevent decompensation, reduce isolation, and increase emotional regulation skills. Narrative Note: []
--- NOTE | 2021-09-10 09:00 | BH.SGPN.GN ---
Behaviors/Verbalizations/Mental Status: [] Eye contact is good. Motor activity is appropriate. Appearance is casual. Speech is Appropriate. Mood is anxious. Affect is congruent. Thoughts are linear and logical. No evidence of psychosis. Reviewed daily check in sheet and no reports of suicidal ideations or intent. Client Response/Progress/Benefit: [] Pt participated at times during the group discussion. Attentive. Emotion for today is relieved. Mental health wins was being able to challenge some negative automatic thoughts. She reports that she was able to utilize the skills of acceptance, reframing, and letting go this past weekend which had a beneficial impact on her mental health. She had people over for the holiday which was overwhelming. She talked about her social anxiety and how that impacts her thoughts, mood, and actions. She used these triggering event to practice her skills which helped increase her confidence. Progress noted per pt report. Benefited from group support, encouragement, and feedback. Will continue in IOP to prevent decompensation, increase health coping skills, and improve functioning. Narrative Note: []
--- NOTE | 2021-09-10 11:15 | BH.SGPN.GN ---
Behaviors/Verbalizations/Mental Status: []Client alert and oriented, casually dressed and groomed. Eye contact good. Motor activity appropriate. Speech within normal limits. Affect congruent, mood euthymic. Thoughts linear, logical, no signs of hallucinations or delusions. Client Response/Progress/Benefit: []Client responded well to session, attentive. Did well to process activity and work with group to relate the strategies used to overcome barriers in the activity to managing change in own life. Client identified she would like to focus on changing her morning routine. Identified being in the preparation stage. Client stated her goal is to not look at any social media until her morning tasks are complete. Appeared to benefit from identifying a small goal to work towards. Client will continue IOP tx to prevent decompensation, gain healthy coping skills, and improve daily functioning.
== END 2021-09-10 23:59 ==
LOC: BHIOP 08:00
PROVIDERS: PCP Family Medicine; Referring Provider Psychiatry & Neurology Psychiatry; Visit Provider Psychiatry & Neurology Psychiatry
DX: F33.2 Major depressive disorder, recurrent severe without psychotic features (principal); F40.11 Social phobia, generalized; G47.33 Obstructive sleep apnea (adult) (pediatric); G25.81 Restless legs syndrome; Z79.899 Other long term (current) drug therapy
CPT/HCPCS: S9480; 90832; 90853

== ENCOUNTER 2021-09-11 07:26 | Outpatient (RCR) | payer OTHER, SELFPAY ==
--- NOTE | 2021-09-11 10:13 | BH.SGPN.GN ---
Behaviors/Verbalizations/Mental Status: []Client alert and oriented, casually dressed and groomed. Eye contact good. Motor activity appropriate. Speech within normal limits. Affect congruent, mood anxious and euthymic. Thoughts linear, logical, no signs of hallucinations or delusions. Client Response/Progress/Benefit: []Client responded well to session AEB sharing and listening attentively to others. Client participated in activity illustrating how perspective affects mental health. Client participated in group discussion on what shapes our perspective, contributing upbringing and caregivers as examples. Client appeared connected to psychoeducation on how our thoughts and attitude can become ?lenses? that we see the world through. Participated in group discussion reviewing how these lenses affect mental health treatment, stating that a negative perspective could cause someone to be less likely to follow tx recommendations, such as not taking recommended psychiatric medications. Shared her current perspective as hopeful but that she still struggles with a ?negative voice?. Shared that this ?negative voice? 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 Client appeared to benefit from increased knowledge of perspective and how mental health can impact or be impacted by one?s perspective. Will continue IOP treatment to improve anxiety and depression management skills, increase confidence in self, and improve overall mood stability. Narrative Note: []
--- NOTE | 2021-09-11 11:15 | BH.SGPN.GN ---
Behaviors/Verbalizations/Mental Status: []Pt alert and oriented, neatly dressed and groomed. Eye contact good. Motor activity appropriate. Speech within normal limits. Affect congruent-tearful at times, mood dysthymic. Thoughts linear, logical, no signs of hallucinations or delusions. Client Response/Progress/Benefit: []Pt was attentive and contributed in small and larger group discussion. Pt completed strengths exploration worksheet and identified personal strengths to include: love, wisdom, cooperation, and kindness. Pt was tearful and shared feeling like ?these are a given?everyone has these.? Pt shared that working to recognize these personal strengths more consistently will help improve pt?s mood and increase self-worth. Shared wanting to focus on fostering personal strengths by reminding herself of her strengths through actions. Also identified barriers for acknowledging and using strengths. Benefited from identifying personal strengths and strategies for enhancing use of identified strengths. Pt to continue IOP tx to reduce negative self-talk, improve mood stability, and gain healthier core beliefs. Narrative Note: []
--- NOTE | 2021-09-12 09:05 | BH.SGPN.GN ---
Behaviors/Verbalizations/Mental Status: []Pt alert and oriented, neatly dressed and groomed. Eye contact good. Motor activity appropriate. Speech within normal limits. Affect constricted, mood dysthymic. Thoughts linear, logical, no signs of hallucinations or delusions. Reviewed pt?s symptom tracker, no risk for suicidal ideation, plan, or intent as of 09/12/21 Client Response/Progress/Benefit: []Pt responded well to session, attentive and providing supportive feedback. Pt reports feeling confused this morning as pt shared she had a good day yesterday at IOP, but after pt left, pt shared it was like a black cloud was following me around. Group normalized this and discussed how IOP can be helpful and challenging at the same time. Pt shared despite having a down afternoon, pt still got to enjoy nature, read, and pray which pt found to be beneficial. Pt appeared to benefit from group support. Pt showing progress with utilizing healthy coping skills outside IOP. Pt will continue IOP tx to promote mood stability, reduce negative thinking, and improve daily functioning. Narrative Note: []
--- NOTE | 2021-09-12 10:20 | BH.SGPN.GN ---
Behaviors/Verbalizations/Mental Status: []Pt alert and oriented, casually dressed and groomed. Eye contact good. Motor activity appropriate. Speech within normal limits. Affect congruent, mood depressed and anxious. Thoughts linear, logical, no signs of hallucinations or delusions. Client Response/Progress/Benefit: [] Pt responded well to session AEB contributing to discussion, taking notes, and listening attentively to others. Group discussed the benefits of managed anger and anger as a secondary emotion. Pt completed anger iceberg worksheet, reporting outward personal signs of anger as avoidance, crying, and shutting down. Identified underlying emotions that contribute to anger including negative thoughts, anxiety, and feeling overwhelmed. Appeared to benefit from increased knowledge of the underlying emotions that impact anger and increased self-awareness of the internal and external consequences of anger. Will continue IOP tx to prevent decompensation, continue to improve self-confidence, as well as increase the use of healthy coping skills and thought challenging. Narrative Note: []
--- NOTE | 2021-09-12 10:47 | BH.MDN ---
Multi-Disciplinary Note - Note 60-min Individual Time Started:: 11:20 Date: 09/12/21 Purpose of session/treatment goals addressed:: To work on goal #1 objective #2 of pt's tx plan. Eye Contact:: Good Motor Activity:: Appropriate Appearance:: Neat Speech:: Appropriate Mood:: Dysthymic Affect:: Congruent Thoughts:: Linear, Logical, No evidence of hallucinations/delusions noted Staff Interventions:: thought challenging, psychoeducation on: - core beliefs, CBT techniques, strengths perspective, goal setting, other - completed and processed the mistaken beliefs questionnaire. Created goals for the week centered around self-care and core beliefs. Client Response:: Pt responded well to session, open to meeting with therapist. Pt stated the group on perspective very much impacted pt. Pt reported it hit me hard as pt realized how negative she truly is towards herself and how pt struggles to see any personal strengths. Discussed how her childhood and first marriage have created and reinforced negative core beliefs. Pt shared when she was a child her worth was attached to her productivity, and pt continues to be impacted by this. Pt also recognizes how the trauma of her first marriage reinforced her low self-worth and negative view of self. Pt receptive to emotional support and self-compassion. Pt completed the mistaken belief questionnaire and processed this with therapist. Pt connected her worth being based on perfection, accomplishments or productivity, and getting love from others. Pt processed how these beliefs have impacted pt over the years. Pt receptive to homework and will meet with therapist next week. Risks/Concerns:: Pt denies any suicidal ideation, plan, or intent. Pt future oriented. Progress Toward Goals/Plan:: Pt is responding well to IOP tx AEB consistent engagement and report of utilizing skills outside of IOP. Pt reports her energy levels have improved and overall she is feeling more hopeful. However, pt is noticing that her thinking patterns and believes of self continue to be negative and distorted. These thought patterns lead to self-doubt, crying spells, and fear of failure. Pt receptive to learning about core beliefs and gaining skills on how to develop more balanced core beliefs. Pt will continue IOP tx to reduce negative thinking patterns, increase self-compassion, and improve daily functioning. Time Stopped:: 12:30
--- NOTE | 2021-09-16 10:10 | BH.SGPN.GN ---
Behaviors/Verbalizations/Mental Status: []Eye contact is good. Motor activity is appropriate. Appearance is casual and grooming tended to. Speech is Appropriate. Mood is euthymic. Affect is congruent. Thoughts are linear and logical. No evidence of psychosis Client Response/Progress/Benefit: []Pt receptive of session, actively engaged throughout AEB taking notes and providing input and examples to discussion. Appeared to connect with group topic of cognitive distortions and the impact of thought patterns on mental health, coping behaviors, and relationships. Reflected that pt personally tends to struggle with distortions of all or nothing thinking, overgeneralizing, and mind-reading. Pt reports when she has distorted thinking pt becomes hard on herself and stops trying. Pt appeared to benefit from gaining insight on distorted thinking patterns and how this impacts overall mental health. Progress noted in pt report of improved insight and ability to combat distortions with alternative positive thoughts. Will continue IOP tx to further combat distorted thought patterns, increase self-compassion, and improve mood stability. Narrative Note: []
--- NOTE | 2021-09-17 09:00 | BH.SGPN.GN ---
Behaviors/Verbalizations/Mental Status: []Client alert and oriented, neatly dressed and groomed. Eye contact good. Motor activity appropriate. Speech within normal limits. Affect normal, mood euthymic. Thoughts linear, logical, no signs of hallucinations or delusions. Reviewed client's symptom tracker, no risk for suicidal ideation, plan, or intent as of 09/17/21 Client Response/Progress/Benefit: [] Client engaged and cooperative in group with providing feedback and openly sharing current obstacles experienced. Client discussed how she feels in past months/weeks she is gaining more energy and interests do more and is optimistic about her future. Client shared stressors of finding her place currently with trying to stick to her boundaries when it comes to her family. Client seemed to respond positively from support from peers. Will continue IOP tx to maintain gains, continue challenging distorted thoughts and improve overall functioning. Narrative Note: []
--- NOTE | 2021-09-17 13:51 | BH.MDN_ITS ---
Multi-Disciplinary Note - Note 60-min Individual Time Started:: 11:40 Date: 09/17/21 Purpose of session/treatment goals addressed:: To work on goal #1 of pt's tx plan. Another goal was to work on setting goals to help pt sit with the uncomfortable. Eye Contact:: Good Motor Activity:: Appropriate Appearance:: Neat Speech:: Appropriate Mood:: Euthymic, Anxious Affect:: Congruent Thoughts:: Linear, Logical, No evidence of hallucinations/delusions noted Staff Interventions:: thought challenging, psychoeducation on: - Core Beliefs, CBT techniques, strengths perspective, goal setting Client Response:: Pt responded well to session, open to meeting with therapist. Pt shared she did a lot of reflecting from last session. Pt realized that at the core of a lot of pt's anxiety and negative thinking is I hate conflict as pt fears the consequences of conflict and making other people uncomfortable. Pt shared she also fears the potential abandonment that could come from conflict and if she was abandoned that would mean she is not good enough. Pt gained awareness that these believes reinforce guilt and pt's perfectionist expectation of self. Pt receptive to working on behavior experiments to start developing healthier core beliefs. Pt set two goals for the week that will help pt sit with the uncomfortable and gather evidence for her new core belief. Pt's new core belief she wants to develop is I'm not good at everything, but I'm good at some things. Risks/Concerns:: Pt denies any suicidal ideations, plan, or intent as of 09/17/21. Pt denies any thoughts of . Progress Toward Goals/Plan:: Pt continues to show progress towards tx goals AEB her consistent attendance, high engagement in group, and resolving symptoms. Pt is practicing healthy coping skills outside of IOP tx which is helping pt reduce isolation and challenge distortions. Pt continues to experience guilt, negative self-talk, avoidance behaviors, and negative core beliefs. Pt will continue IOP tx to promote mood stability, gain healthier core beliefs, and improve self- compassion. Time Stopped:: 12:35
--- NOTE | 2021-09-18 10:13 | BH.SGPN.GN ---
Behaviors/Verbalizations/Mental Status: []Eye contact is good. Motor activity is appropriate. Appearance is casual. Speech is Appropriate. Mood is depressed and anxious. Affect is congruent. Thoughts are linear and logical. No evidence of psychosis. Client Response/Progress/Benefit: []Pt connected with topic of Anxiety and participated throughout, providing input and taking notes. Attentive during psychoeducation on different anxiety disorders and participated throughout interactive discussion defining anxiety and identifying cognitive and physiological symptoms of anxiety. Pt stated ?anxiety has led me to avoid dentist appointments in the past?. Common cognitive symptoms identified by group included: ?what if thoughts?, ?fear of failure?, and predicting the future type thoughts. Physiological symptoms reported by patient included: muscle tension and increased heart rate. Benefited from increased awareness and insight on anxiety and its impact. Plan is to continue in IOP to maintain progress, increase consistency of healthy coping and thought challenge skills, and prevent decompensation. Narrative Note: []
--- NOTE | 2021-09-18 11:08 | PCM.BH.PN_ITS ---
Progress Note Progress Note: History of Present Illness/Interim History: [] The patient is a 66-year-old female with a history of depression and anxiety who is seen in follow-up at the [facility] behavioral health IOP program. I last saw the patient 2 weeks ago and at that time her Prozac was decreased to 40 mg p.o. daily and Zoloft 25 mg p.o. daily was started. Patient states that she is doing really well. She is tolerating the medication changes well with no side effects. She still has some mild fatigue and is going to change her Zoloft to bedtime dosing. Her mood overall is is better. She has more energy and has more interest and motivation in doing things. She is isolating herself less lately. She has less crying and when she does cry it is very brief and there are no crying episodes anymore that used to last hours. She denies any passive thoughts of now also. She also denies panic attacks, suicidal ideation, plan for suicide, fleeting suicidal ideation, homicidal ideation, hallucinations or delusions. She feels she is learning a lot about her thinking especially her negative thinking about herself. Current Psychiatric Medications: [] Prozac 40 mg p.o. daily (x2-week, on Prozac 30 years); Zoloft 25 mg x 1 week and then 50 mg daily x1 week; Wellbutrin SR 100 mg p.o. every morning (x6 months); Lamictal 150 mg p.o. daily (x5 or 6 months); Xanax 0.25 mg she takes about once a month as needed for severe anxiety. Mental Status Examination: [] The patient is a 66-year-old female who is casually dressed and groomed with good hygiene and appears normal for her stated age. She has a normal gait and is ambulatory. She has no psychomotor agitation or retardation. Eye contact is good and mood mood is mildly depressed. Affect is full and normal. Thought process is goal-directed and organized. Thought content: There is no evidence of passive thoughts of , fleeting suicidal ideation, active suicidal ideation or plan for suicide. There is no evidence of homicidal ideation, hallucinations, delusions. The patient is more optimistic for the future. Diagnoses: [] 1. Major depressive disorder, recurrent, severe without psychosis 2. Social anxiety disorder (F40.11) 3. Obstructive sleep apnea 4. History of restless leg syndrome 5. Primary support issues Plan: [] The patient will continue the IOP program at [facility] as the structure, support, education and group therapy will hopefully prevent worsening of the patient's symptoms which could require hospitalization. She felt safe during the interview and if it anytime she does not feel safe she will let us know or go to the emergency room. The risks, options, possible complications and side effects of the medications were discussed with the patient and she understands and accepts these. The patient will decrease her Prozac to 20 mg p.o. daily for 2 weeks and then stop it completely. She will continue Zoloft 50 mg p.o. daily. She will continue her other medications at their usual doses. She will continue to follow-up with her outpatient medical and psychiatric providers and I will see the patient in follow-up in in 3 weeks.
--- NOTE | 2021-09-19 09:00 | BH.SGPN.GN ---
Behaviors/Verbalizations/Mental Status: []Pt alert and oriented, neatly dressed and groomed. Eye contact good. Motor activity appropriate. Speech within normal limits. Affect congruent, mood euthymic. Thoughts linear, logical, no signs of hallucinations or delusions. Reviewed pt?s symptom tracker, no risk for suicidal ideation, plan, or intent as of 09/19/21 Client Response/Progress/Benefit: []Pt responded well to session, providing supportive feedback. Pt reports feeling happy this morning as pt has been seeing progress since starting IOP. Pt shared she did some not so fun self-care yesterday by not canceling her dentist appointment. Pt also has been catching her distortions more and feels she has less generalized guilt as a result. Pt is practicing self-compassion AEB her report of allowing herself to lie down yesterday and in the past she would have felt guilty. Pt reports her stressor today is she has been ruminating on the past more lately. Pt appeared to benefit from reflecting on gains. Pt will continue IOP tx to further improve mood stability, reduce negative self-talk, and improve self-compassion. Narrative Note: []
--- NOTE | 2021-09-24 09:03 | BH.SGPN.GN ---
Behaviors/Verbalizations/Mental Status: []Client alert and oriented, casually dressed and groomed. Eye contact good. Motor activity appropriate. Speech within normal limits. Affect full, mood euthymic, Thoughts linear, logical, no signs of hallucinations or delusions. Reviewed client's symptom tracker, scores are within client's baseline on 09/24/21. Client Response/Progress/Benefit: Client was an active participant in group discussion. Mental health wins included making progress on small goals she set in individual therapy. Client shared how she overcame thoughts that usually would stop her from going for a walk and discussed how she was able to utilize positive thought processes and ended up succeeding in her goal. Client shared that she is setting timers on her phone to accomplish tasks to break up her day to make it more achievable. Client shared that she feels a stressor is failing at her physical health goal and reverting back to old habits. 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 Will continue in IOP regulate emotions, increase coping skills. and improve functioning. Narrative Note: []
--- NOTE | 2021-09-24 10:05 | BH.SGPN.GN ---
Behaviors/Verbalizations/Mental Status: []client alert and oriented, casually dressed and groomed. Eye contact good. Motor activity appropriate. Speech within normal limits. Affect congruent, mood euthymic, Thoughts linear, logical, no signs of hallucinations or delusions. Client Response/Progress/Benefit: [] Client was well engaged in group AEB taking notes and participating in the activity. Attentive during psychoeducation and discussed the importance of goal-setting with the group. Group identified potential benefits of having goals include: they motivate, build self-confidence, and give a sense of accomplishment. Group also worked together to identify barriers to goal-setting which included; avoidance, lack of motivation, unrealistic expectations, and all or nothing thinking. Client shared to group how avoidance is the biggest obstacle in getting in the way of her accomplishing goals. Discussed how goals are important way of creating progress. Benefited from increased awareness of benefits and barriers to goal-setting. Will continue IOP tx to reduce cognitive distortions and improve daily functioning. Narrative Note: []
--- NOTE | 2021-09-24 11:05 | BH.SGPN.GN ---
Behaviors/Verbalizations/Mental Status: []Pt alert and oriented, neatly dressed and groomed. Eye contact good. Motor activity appropriate. Speech within normal limits. Affect congruent, mood euthymic. Thoughts linear, logical, no signs of hallucinations or delusions. Client Response/Progress/Benefit: []Pt was an active participant in group discussions and activities. Engaged in activity. Pt identified a SMART goal for the next week is to: do resistance training twice within the next 7 days. Identified lack of motivation, distractions, and depressive thoughts as potential barriers to completing this goal. Pt able to identify several solutions, such as setting timers, opposite action, rewarding self, and reminding self why she is doing this that can help overcome identified barriers. Benefited from group by being able to utilize SMART educate to create a goal. Pt to continue IOP to increase healthy coping skills, challenge distorted thoughts, and increase self-compassion. Narrative Note: []
--- NOTE | 2021-09-24 13:44 | BH.TPR ---
Treatment Plan Review Date of Admission:: 09/02/21 Date of Treatment Plan Review:: 09/24/21 Admitting Diagnoses:: Major depressive disorder, recurrent, severe without psychosis F 33.2; Social anxiety disorder F 40.11 Current Diagnoses:: Major depressive disorder, recurrent, severe without psychosis F 33.2; Social anxiety disorder F 40.11 Patient's Response to Treatment:: Pt has responded well to treatment AEB pt consistently attending IOP sessions and his reduction of DSM-5 scores since admission. Pt contributes well during individual sessions and actively contributes during group sessions. Pt applies coping skills outside of IOP and reports overall her mood is improved and she is doing better at catching negative thoughts and combatting them. Status of Current Problems and Symptoms: Pt's symptoms of depression and anxiety are resolving, but there are still issues ongoing. Pt has been learning about cognitive distortions and core beliefs and this has increased pt's insight to guilt, perfectionism, and unrealistic expectations. Pt is working on building healthier core beliefs, improving self-compassion, and reducing avoidance behaviors. Pt continues to experience stressors associated with her past trauma and breaking unhealthy maintenance cycles. Problem #1 Problem Name:: depressive symptoms, worthlessness and guilt, and hopelessness Status of Goals:: Objective 1- complete with ongoing work encouraged. Pt?s DSM-5 scores for depression have decreased by 20% since admission. Pt reports using healthy coping skills outside of IOP tx and pt reports improved mood. Objective 2-in progress. Pt can identify negative thinking patterns that reinforce guilt and pt has identified her mistaken beliefs. Pt is working on creating new core beliefs by looking for evidence and completing behavior experiments. Team Recommendations:: Treatment tx recommends pt continue working on these goals to further improve self-compassion to combat unrealistic expectations and create healthier core beliefs. Problem #2 Problem Name:: social anxiety, ruminations, and avoidance Status of Goals:: Objective 1-Complete with ongoing work encouraged. Pt?s DSM-5 scores for anxiety have decreased by 50% since admission. Pt reports less avoidance of things that make pt anxious which is reducing stress and increasing self-care. Objective 2-partially complete. This goal will be an ongoing goal as pt can benefit from self-care throughout the time in the program. Pt is working on doing self-care that is ?less fun? like making appointments and getting back into exercise. Team Recommendations:: Treatment tx recommends pt continue working on setting goals to reduce avoidance and to increase self-care.
--- NOTE | 2021-09-26 09:00 | BH.SGPN.GN ---
Behaviors/Verbalizations/Mental Status: []Pt alert and oriented, neatly dressed and groomed. Eye contact good. Motor activity appropriate. Speech within normal limits. Affect congruent, mood euthymic. Thoughts linear, logical, no signs of hallucinations or delusions. Reviewed pt?s symptom tracker, no risk for suicidal ideation, plan, or intent as of 09/26/21 Client Response/Progress/Benefit: []Pt responded well to session, offering encouragement to peers. Pt reports feeling happy this morning as pt has been more productive and less avoidant of responsibilities. Pt shared she is also challenging her all or nothing thinking which has reminded pt that it is okay to not be productive all the time. Pt continues to follow through with her treatment goals and reports this as helpful. Pt's stressor today is she has been having anxious, intrusive thoughts about her loved ones getting in accidents. Milling Plan[employer] Operator and group provided coping skills to help with this which pt appeared to benefit from. pt will continue IOP tx to promote gains, improve self-compassion, and further reduce negative thinking. Narrative Note: []
--- NOTE | 2021-09-26 14:14 | BH.MDN ---
Multi-Disciplinary Note - Note 60-min Individual Time Started:: 12:15 Date: 09/26/21 Purpose of session/treatment goals addressed:: To work on goal #2 of pt's tx plan by setting small intention goals each day and discussing boundaries. Eye Contact:: Good Motor Activity:: Appropriate Appearance:: Neat Speech:: Appropriate Mood:: Euthymic Affect:: Full Thoughts:: Linear, Logical, No evidence of hallucinations/delusions noted Staff Interventions:: thought challenging, CBT techniques, strengths perspective, reviewed DSM-5, goal setting Client Response:: Pt responded well to session, open to meeting with therapist. Pt reports feeling better than I have in years. Pt shared she has been catching distorted thoughts and challenging them which has helped pt reduce all or nothing thinking. Pt stated she accomplished her goals from last session and was understanding and compassionate to herself for having to reevaluate these goals to make them more realistic. Pt's goal this week is to work on three intentions each day. These intentions will be around spiritual connection, tidying the house, and giving herself credit. Pt shared she is getting better at acknowledging her strengths, but she feels a cognitive dissonance about her strength of loving people. Pt reports this strength is my gift but also exhausting. Discussed setting boundaries with herself to reduce the exhaustion this strength accompanies. Pt plans to implement a waiting period when she is asked to help someone so pt has time to think before automatically responding, yes. Risks/Concerns:: No risk of SI or HI noted. Progress Toward Goals/Plan:: Pt continues to demonstrate progress towards tx goals AEB pt's reduction in DSM-5 symptoms since admission and self-report of improved mood. Pt continues to struggle with guilt, some avoidance, and negative thinking patterns, but symptoms are resolving. Pt will continue IOP tx to promote gains, increase self-compassion and confidence, and further reduce avoidance. Time Stopped:: 13:10
--- NOTE | 2021-09-27 09:05 | BH.SGPN.GN ---
Behaviors/Verbalizations/Mental Status: [] Eye contact is good. Motor activity is appropriate. Appearance is casual. Speech is Appropriate. Mood is depressed. Affect is flat. Thoughts are linear and logical. No evidence of psychosis. Reviewed daily check in sheet and no reports of suicidal ideations or intent. Client Response/Progress/Benefit: [] Pt was an active participant in group discussions. Attentive. Provided appropriate feedback. Daily symptom tracker notes 3/5 for depression and anxiety and 2/5 for anger. Emotion for today is depressed. Shared with the group that she struggles with depression and negative thoughts yesterday evening. I went backwards yesterday. Significant ruminations that she was a bad person and irresponsible which led to stress-eating. Reported that she felt defeated. Attempted to utilize her skills however little benefit. Group provided support as well as reframed/challenged her thoughts which was benefical pt pt report. Pt able to see that she did make progress as she was not as depressed as she would have been in the past and she did utilize skills which ended up being beneficial. Normalized that progress in mental health is not linear. Group also offered some feedback on the events that led to her decompensation to ease her feelings of guilt. Will continue in IOP to prevent decompensation, increase health coping skills, and improve functioning. Narrative Note: []
--- NOTE | 2021-09-27 10:10 | BH.SGPN.GN ---
Behaviors/Verbalizations/Mental Status: [] Eye contact is good. Motor activity is appropriate. Appearance is casual. Speech is Appropriate. Mood is euthymic. Affect is full. Thoughts are linear and logical. No evidence of psychosis Client Response/Progress/Benefit: [] Pt was an active participant in group discussions and experiential activity. Attentive during psychoeducation. Group had an interactive discussion in which they provided insight on the definition of a pitfall which was things that we engage in that keep us stuck and away from a healthier path. Group identified types of pitfalls in mental health such as isolation, not asking for help, avoiding, not taking medications, avoiding responsibilities, not setting boundaries, and self-sabotage. Pt played an active role in the experiential activity and was able to make connections between the activity and today's topic. Benefited from increased insight on pitfalls and how they can impact mental health. Will continue in IOP to maintain safety, prevent decompensation, and increase health coping. Narrative Note: []
--- NOTE | 2021-09-27 11:10 | BH.SGPN.GN ---
Behaviors/Verbalizations/Mental Status: []Pt alert and oriented, casually dressed and groomed. Eye contact good. Motor activity appropriate. Speech within normal limits. Affect congruent, mood anxious and euthymic. Thoughts linear, logical, no signs of hallucinations or delusions. Client Response/Progress/Benefit: []Pt receptive of session, engaged throughout AEB pt actively listening and contributing to discussion, as well as taking notes.? Pt completed worksheet identifying personal pitfalls impacting mental health progress. Pt identified the following pitfalls: negative thoughts, self-doubt, avoidance, perfectionism, and distortions. Group worked together to identify different coping skills to help manage pitfalls. Pt selected the following coping skills to help with pitfalls: thought challenging, opposite action, breathing/mindfulness, and avoiding perfectionistic thinking. Pt wants to work on managing pitfalls by setting small goals focused on improving her thought challenge skills and use of self-compassion. Benefited from identifying personal pitfalls and strategies to overcome these pitfalls. Will continue IOP tx to reduce unhealthy thought patterns, improve mood stability, and increase confidence. Narrative Note: []
--- NOTE | 2021-09-30 09:03 | BH.SGPN.GN ---
Behaviors/Verbalizations/Mental Status: []Pt alert and oriented, casually dressed and groomed. Eye contact good. Motor activity appropriate. Speech within normal limits. Affect congruent, mood euthymic. Thoughts linear, logical, no signs of hallucinations or delusions. Reviewed pt?s symptom tracker, no risk for suicidal ideation, plan, or intent. Client Response/Progress/Benefit: []Pt responded well to session, providing supportive feedback. Pt reported mental health positive as officially sending in her resignation to her boss so she doesn't have to worry about being called in again. Pt stated she had been putting off sending the letter but feels relieved. Pt stated additional positive as spending lot of time outside and being productive. Pt reported she made a change to her routine this morning of doing her spirtiual reading using a book versus her phone so she doesn't get distracted by social media. Pt stated the change in routine helped her this morning so she is hoping to maintain this change. Pt stated stressor as feeling she isn't doing enough for her therapy because she feels like there is so much to work on. Receptive to feedback/support from peers. Pt appeared to benefit from support from peers. Pt to continue IOP to continue use of healthy coping, increase confidence, and prevent decompensation.
--- NOTE | 2021-09-30 11:05 | BH.SGPN.GN ---
Behaviors/Verbalizations/Mental Status: []Pt alert and oriented, neatly dressed and groomed. Eye contact good. Motor activity appropriate. Speech within normal limits. Affect congruent, mood euthymic. Thoughts linear, logical, no signs of hallucinations or delusions. Client Response/Progress/Benefit: []Pt responded well to session AEB listening to group discussion and completing the resilience worksheet provided. Pt participated in the discussion of how each resiliency component can help increase personal resiliency. Pt identifying doing well with the resilience components of making connections and self-care. Reflected on wanting to improve in the personal resilience component of nurturing a positive view of self. Pt stated she wants to work on this by giving herself credit for two things each day to not disqualify her positives. Pt seemed to benefit from discussing strategies for improving personal resilience. Will continue IOP tx to challenge negative self-talk, reduce avoidance, and increase self-compassion. Narrative Note: []
--- NOTE | 2021-10-01 09:08 | BH.SGPN.GN ---
Behaviors/Verbalizations/Mental Status: []Pt alert and oriented, neatly dressed and groomed. Eye contact good. Motor activity appropriate. Speech within normal limits. Affect congruent, mood euthymic and anxious. Thoughts linear, logical, no signs of hallucinations or delusions. Reviewed pt?s symptom tracker, no risk for suicidal ideation, plan, or intent as of 10/01/21 Client Response/Progress/Benefit: []Pt responded well to session, attentive and providing supportive statements. Pt reports feeling hyper and anxious this morning due to the upcoming [employer] camp pt puts on for all her grandchildren. Pt stated in the past she would have neglected her own self-care, but this year pt is making it a priority. Pt shared she is also focusing on what is in her control and pt has asked for more help this year. Pt's stressor is that she has been feeling slightly down a few days, but pt does not know why. Group helped normalize this and help pt see how anxiety could be reinforcing her down mood. Pt will continue IOP tx to promote gains, further combat distortions, and improve self-compassion. Narrative Note: []
--- NOTE | 2021-10-01 10:10 | BH.SGPN.GN ---
Behaviors/Verbalizations/Mental Status: []Eye contact is good. Motor activity is appropriate. Appearance is casual. Speech is Appropriate. Mood is euthymic. Affect is congruent. Thoughts are linear and logical. No evidence of psychosis. Client Response/Progress/Benefit: []Pt was an active participant in group discussion and activity. Attentive during psychoeducation on social stigma vs self-stigma. Pt was actively involved in interactive discussion on the question of What impacts how we define and view ourselves? Pt along with peers were able to identify several aspects that impact how we view ourselves which include: society, past experiences, upbringing, guilt over past actions, shame, what we tell ourselves, and actions. Pt reported internal stigma led her in the past to minimize and deny her mental health symptoms. Benefited from increased awareness of how mental health stigma can impact individuals and treatment. Plan is to continue in IOP to maintain progress, increase confidence and prevent decompensation.
--- NOTE | 2021-10-01 14:01 | BH.MDN ---
Multi-Disciplinary Note - Note 45-min Individual Time Started:: 12:10 Date: 10/01/21 Purpose of session/treatment goals addressed:: To review self-care practices, process current stressors and identify solutions, and discuss core beliefs. Eye Contact:: Good Motor Activity:: Appropriate Appearance:: Neat Speech:: Appropriate Mood:: Euthymic, Anxious Affect:: Full Thoughts:: Linear, Logical, No evidence of hallucinations/delusions noted Staff Interventions:: thought challenging, CBT techniques, strengths perspective, other - discussed core beliefs, self-care, and aftercare options Client Response:: Pt responded well to session, open to meeting with therapist. Pt shared she has been doing well and reflected on changes she has recently made. Pt has been journaling each morning and taking time for her spirituality. Pt also has better prepared for her annual [employer] camp this year. Pt stated normally she would completely herself to focus on her grandchildren, but this year pt made herself a priority as well. Discussed the importance of maintenance as well as strategies to increase follow through. Pt wants to continue working on developing new core beliefs and asked therapist questions about core beliefs. Pt shared she wants to make the negative core belief of I'm not enough less heavy before leaving IOP tx. Pt and therapist will work on this next session, as pt wants to focus on self-care for the next few days. Risks/Concerns:: Pt denies any suicidal ideations, plan, or intent. No passive thoughts of . Progress Toward Goals/Plan:: Pt continues to make progress towards tx goal AEB pt's self-report of overall improved ability to function and respond to stressors. Pt reports increased use of self-care and reduced distortions. Pt continues to struggle with negative core beliefs, feeling like there's a cloud around her at times, anxiety, and setting boundaries. Pt's symptoms are resolving. Pt will continue IOP tx to promote gains, further reduce negative self-talk, and increase self-compassion. Time Stopped:: 12:50
--- NOTE | 2021-10-10 09:05 | BH.SGPN.GN ---
Behaviors/Verbalizations/Mental Status: [] Eye contact is good. Motor activity is appropriate. Appearance is casual. Speech is Appropriate. Mood is depressed. Affect is flat. Thoughts are linear and logical. No evidence of psychosis. Reviewed daily check in sheet and no reports of suicidal ideations or intent. Client Response/Progress/Benefit: [] Pt was an active participant in group discussion. Attentive. Provided appropriate feedback. Daily symptom tracker notes 05/18 for anxiety and 04/17 for depression. Pt reports that her [employer] camp went well over the weekend. She utilized skills, set realistic expectations, reframed thoughts, and asked for help which made the event more enjoyable for herself and her grandkids. She was able to be mindful and take pressure of myself. She discussed a stressor that her grandson was recently dx'd with several psych issues including depression and behavioral issues. She feels horrible that he has to deal with that and feels powerless. Group empathized and provided feedback and suggestions. Group normalized her thoughts and emotions which was also beneficial. Despite this stressor she feels that I'm improving and she has less negative thoughts. Will continue in IOP to prevent decompensation, increase health coping, and decrease negative automatic thoughts. Narrative Note: []
--- NOTE | 2021-10-10 10:20 | BH.SGPN.GN ---
Behaviors/Verbalizations/Mental Status: []Pt alert and oriented, neatly dressed and groomed. Eye contact good. Motor activity appropriate. Speech within normal limits. Affect congruent, mood euthymic. Thoughts linear, logical, no signs of hallucinations or delusions. Client Response/Progress/Benefit: []Pt was an active participant in group discussion. Group worked together to identify benefits of healthy relationships which include; improves mental health, encouragement, motivation, accountability, validation, connection, someone to share experiences with, and personal growth. Group identified factors that lead to unhealthy relationships which included; co-dependence, lack of personal exploration, gaslighting, and blaming. Pt shared her first marriage was toxic, but pt now has a healthy marriage which has helped pt feel more confident and be honest. Actively participated in group experiential activity and expressed her ideas to group. Benefited from increased insight and awareness of benefits of healthy relationships and factors that contribute to unhealthy relationships. Will continue in IOP to promote gains, further decrease negative thinking patterns, and improve self-compassion. Narrative Note: []
== END 2021-10-10 23:59 ==
LOC: BHIOP 07:26
PROVIDERS: PCP Family Medicine; Referring Provider Psychiatry & Neurology Psychiatry; Visit Provider Psychiatry & Neurology Psychiatry
DX: F33.2 Major depressive disorder, recurrent severe without psychotic features (principal); F40.11 Social phobia, generalized; G47.33 Obstructive sleep apnea (adult) (pediatric); G25.81 Restless legs syndrome; Z79.899 Other long term (current) drug therapy
CPT/HCPCS: S9480; 90834; 90837; 90853

== ENCOUNTER 2021-10-11 07:24 | Outpatient (RCR) | payer OTHER, SELFPAY ==
--- NOTE | 2021-10-11 10:15 | BH.SGPN.GN ---
Behaviors/Verbalizations/Mental Status: []Pt alert and oriented, neatly dressed and groomed. Eye contact good. Motor activity appropriate. Speech within normal limits. Affect congruent, mood euthymic. Thoughts linear, logical, no signs of hallucinations or delusions. Client Response/Progress/Benefit: []Pt attentive listening to peers, contributing at times, and taking notes during session. Listened as the group brainstormed the positive and negative aspects of stress on physical and mental health. Group did well to identify the benefits of stress as well as the impact of distress on performance and mental health. Pt?s top stressors right now are kids and grandkids, procrastination, and perfectionism. Pt shared their ?stress jar? is about 50% full which pt contributes to utilizing thought challenging and viewing things in [place] instead of black and white. Pt shared when their 'stress jar' is overflowing, pt gets irritable, avoids, has negative thinking, and wants to numb her feelings. Pt seemed to benefit from increased self-awareness of current stressors and impact stress has on mental health. Will continue IOP tx to promote mood stability, promote gains, and further improve self-compassion. Narrative Note: []
--- NOTE | 2021-10-11 11:15 | BH.SGPN.GN ---
Behaviors/Verbalizations/Mental Status: []Pt alert and oriented, neatly dressed and groomed. Eye contact good. Motor activity appropriate. Speech within normal limits. Affect congruent, mood euthymic. Thoughts linear, logical, no signs of hallucinations or delusions. Client Response/Progress/Benefit: []Pt participated at times during group discussions. Attentive during psychoeducation on the 4 A's of Coping with Stress (Avoid, Alter, Adapt, Accept). Participated in experiential activity in which group members had to utilize stress management skills in the moment. Pt agreed with peers that their anxiety and sense of urgency was a barrier and helped group problem-solve solutions. Pt engaged in review of the 4 A?s and picked wanting to work on adapting more realistic expectations for herself when faced with stressors. Pt wants to reduce the urge to be perfect by setting more realistic goals. Benefited from processing in the moment stress management strategies and identifying new ways to cope with stress. Will continue in IOP to reinforce healthy coping skills, further reduce negative thinking, and further process past trauma. Narrative Note: []
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
--- NOTE | 2021-10-16 09:00 | BH.SGPN.GN ---
Behaviors/Verbalizations/Mental Status: []Pt alert and oriented, casually dressed and groomed. Eye contact good. Motor activity appropriate. Speech within normal limits. Affect congruent, mood content. Thoughts linear, logical, no signs of hallucinations or delusions. Reviewed pt?s symptom tracker, no risk for suicidal ideation, plan, or intent as of 10/16/21 Client Response/Progress/Benefit: []Pt responded well to session, providing supportive statements. Pt reports feeling grateful this morning as pt has been practicing a lot of self-care and feeling so much better. Pt shared she has been allowing herself time to rest which has prevented burnout and depressive symptoms. Pt also has been practicing self-reflection and using positive self-talk. Pt's reports her one grandson's mental health and wanting to fix things for him as her ongoing stressor. Pt received feedback from therapist and peers. Pt appeared to benefit from reflecting on gains and connecting with peers. Pt will continue IOP tx to promote gains, further improve self-care, and further decrease negative thinking patterns. Narrative Note: []
--- NOTE | 2021-10-16 10:10 | BH.SGPN.GN ---
Behaviors/Verbalizations/Mental Status: [] Client alert and oriented, neatly dressed and groomed. Eye contact good. Motor activity appropriate. Speech within normal limits. Affect congruent, mood euthymic. Thoughts linear, logical, no signs of hallucinations or delusions. Client Response/Progress/Benefit: [] Client was an active participant in group discussions. Attentive during psychoeducation on 4 types of conflict styles (Competing, Collaborating, Avoiding, and Accommodating). Worked with group to define conflict and identify how conflict is helpful. With peers identified barriers to addressing or managing conflict which included: fear of upsetting others, fear of the outcome, and feeling vulnerable. Client shared that when we use only our emotional mind, it can impact our ability to handle conflict. Benefited from group due to increase insight and awareness of benefits to conflict, conflict styles, and obstacles to managing conflict. Will continue in IOP to increase overall functioning with expected discharge next week. Narrative Note: []
--- NOTE | 2021-10-16 11:15 | BH.SGPN.GN ---
Behaviors/Verbalizations/Mental Status: [] Client alert and oriented, neatly dressed and groomed. Eye contact good. Motor activity appropriate. Speech within normal limits. Affect congruent, mood euthymic, Thoughts linear, logical, no signs of hallucinations or delusions. Client Response/Progress/Benefit: []Client engaged in session AEB contributing to discussion and engaging in activity. Client did well to review current conflict style and its impact on mental health with identifying herself as accommodating with her conflict resolution style with identifying that she is a people pleaser and can easily be swayed. Attentive and taking notes during discussion on strategies for more effectively managing conflict in personal life. client participated in activity and did well to be assertive and collaborating. client given handout on fair fighting rules. Appeared to benefit from gaining strategies to help client better manage conflict. Will continue IOP tx to reduce cognitive distortions, improve self-worth, and increase overall fucntioning. Narrative Note: []
--- NOTE | 2021-10-16 12:12 | PCM.BH.PN_ITS ---
Progress Note Progress Note: History of Present Illness/Interim History: [] The patient is a 66-year-old female with a history of depression and anxiety who is seen in follow-up at the [facility] behavioral health IOP program. I last saw the patient about 4 weeks ago and at that time her Zoloft had been increased to 50 mg. The patient feels she is making progress in the IOP program and learning useful skills to deal with her mental health issues. She is tolerating the Zoloft well. She states that she is doing really well. Her mood overall now is euthymic now. According to the patient. She is not isolating herself anymore. She denies panic attacks, passive thoughts of , suicidal ideation, plan for suicide, homicidal ideation, hallucinations or delusions. She feels that the increased awareness of her habitual negative thinking has really helped her improve her mental health. Current Psychiatric Medications: [] Prozac discontinued October 02, 2021; Zoloft 50 mg p.o. daily (x1 month now); Wellbutrin SR 100 mg p.o. every morning; Lamictal 150 mg p.o. daily; Xanax 0.25 mg about once a month as needed for severe anxiety: Rare use now. Mental Status Examination: [] Patient is a 66-year-old female who is casually dressed and groomed with good hygiene and appears normal for stated age. She is ambulatory with a normal gait and has no psychomotor agitation or retardation. Eye contact is good and mood is euthymic. Affect is full and normal. Thought process is goal-directed and organized. Thought content: Patient is very hopeful of the for the future. She continues to worry about her grandson. There is no evidence of passive thoughts of , fleeting suicidal ideation, active suicidal ideation, plan for suicide, homicidal ideation, hallucinations or delusions. Reality testing is intact. Judgment is intact. Insight: Good. Impulsivity moderate to low. Diagnoses: [] 1. Major depressive disorder, recurrent, severe without psychosis (resolving 2. Social anxiety disorder 3. Obstructive sleep apnea 4. History of restless leg syndrome 5. Primary support issues Plan: [] The patient will continue the IOP program at [facility] as the structure, support, education and group therapy will hopefully prevent worsening of the patient's symptoms. She felt safe during the interview and if it anytime she does not feel safe she will let us know or go to the emergency room. The risk, options, possible complications and side effects of the medications were again discussed with the patient and she understands and accepts these. No medication changes were made today. She will continue to follow-up with her outpatient providers and I will see her while she is in the IOP program in follow-up.
--- NOTE | 2021-10-17 09:05 | BH.SGPN.GN ---
Behaviors/Verbalizations/Mental Status: [] Eye contact is good. Motor activity is appropriate. Appearance is casual. Speech is pressured. Mood is euthymic. Affect is full. Thoughts are linear and logical. No evidence of psychosis. Reviewed daily check in sheet and no reports of suicidal ideations or intent. Client Response/Progress/Benefit: [] Pt was an active participant in group counseling. Attentive. Provided appropriate feedback to peers. Emotion for today is happy. Mental health wins include sleeping well this week and working on cognitive distortions. She discussed the negative impact that absolute thinking has had in her life and states I have to be OK with living in the vora. Shared examples of times that she had to reframe automatic thoughts. She reports that she is getting better at asking for help and not setting unrealistic expectations. Stressors include managing her thoughts, expectations, and stress while she has numerous family staying at her house this week. Progress noted per pt report. Benefited from group support, encouragement, and feedback. Will continue in IOP to maintain gains and prevent decompensation. Narrative Note: []
--- NOTE | 2021-10-17 10:20 | BH.SGPN.GN ---
Behaviors/Verbalizations/Mental Status: [] Eye contact is good. Motor activity is appropriate. Appearance is casual. Speech is Appropriate. Mood is euthymic. Affect is full. Thoughts are linear and logical. No evidence of psychosis. Client Response/Progress/Benefit: [] Pt was an active participant in group discussion. Attentive during psychoeducation on Problem-Solving in the Moment Protocol. Participated in group experiential activity. Pt provided feedback during interactive group discussion in which pt and peers worked through an example of a problem (Managing Anxiety) in which they identified a goal (minimizing anxiety) and identified barriers. Barriers identified included lack of awareness, mental health stigma, distorted thinking, not having the tools/resources, and being afraid to fail. During the experiential activity pt worked with peers to problem solve using the Problem Solving in the Moment Protocol. Group was able to complete the activity and pt was able to practice in the moment problem-solving and make connections between problem-solving for activity and in real-life situations. Increased awareness of problem-solving strategies. Will continue in IOP to prevent decompensation, increase healthy coping skills, and decrease impact of anxiety on daily functioning. Narrative Note: []
--- NOTE | 2021-10-17 11:20 | BH.SGPN.GN ---
Behaviors/Verbalizations/Mental Status: []Pt alert and oriented, neat dress, hygiene tended to. Eye contact good. Motor activity WNL. Speech appropriate rate and tone. Affect congruent, mood anxious and euthymic Thoughts linear, logical, no signs of hallucinations or delusions. Client Response/Progress/Benefit: []Pt engaged in session as evidenced by pt listening to others and providing input throughout. Pt practiced in the activity and expressed feeling frustration and anxious, but pt was able to cope by listening and problem-solving with peers. Pt identified a goal pt wants to work on which is to increase physical self-care by moving her body more and eating better. Pt?s barriers included all or nothing thinking, making time, avoidance, and unrealistic goals. Pt also identified steps she could take such as setting her clothes out the night before, setting alarms, and identifying foods that could give her energy. Pt seemed to benefit from learning about problem solving method and rehearsing problem-solving skills in the moment. Pt will continue IOP tx to promote gains, further increase self-compassion, and further reduce negative thinking. Narrative Note: []
--- NOTE | 2021-10-17 15:20 | BH.COMM ---
Communication Note - Communication with Client Communication Note: Pt unable to meet with therapist this week. Pt understands that she will not get an individual session in the 7-10 day window and pt accepts this and reports feeling like she is doing well. Plan is to have an individual session on 10/23/21.
--- NOTE | 2021-10-24 09:07 | BH.AFTERPLAN ---
Aftercare Plan - Demographics Treatment End Date:: 10/24/21 Psychiatrist:: Shanthi Wayne Psychiatrist Office #:: [phone] [facility] Therapist:: Annamaria Oliva Therapist Phone #:: [phone] - Plan Details Progress/Aftercare Plan Details:: Pt has made significant strides since starting IOP as shown by her improved mood, reduced negative thinking, and improved self-compassion. When Pt started IOP she was experiencing significant depression, negative self-talk, and lack of self-care. Now, Pt can catch and manage thoughts that reinforce depression and negative core beliefs, she can give herself credit for her strengths and accomplishments, and she has learned to live in the [place]. Pt was highly active in both group and individual therapy sessions. Pt contributed to group discussions, offered emotional support to peers, and consistently followed through with her goals. In individual sessions, Pt was receptive to feedback, consistent with homework, and willing to push herself. Pt?s high motivation, willingness to challenging her thinking, and ability to connect the topics to her life were likely the reason for her significant progress. Pt plans to attend [facility] aftercare as well as follow up with her outpatient providers. Strategies for Success:: 1. Opposite action! Continue to break that cycle of anxiety and depression by getting up and getting going. 2. Remember that thoughts are thoughts NOT facts! You have power in if you give thoughts the time of day or not. 3. self-care! You deserve to take time for you and you also deserve to face the not so fun self-care 4. Self-compassion! You are human and you will make a mistake?BUT that doesn?t mean you are a failure or not good enough. Give yourself credit for all the wonderful things you do. 5. continue with your spiritual time in the mornings 6. Practice deep breathing, calming self-talk, and meditation 7. Practice positive self-talk and keep track of your wins. 8. Remember progress isn?t linear! You may have a setback or bump in the road, but that doesn?t mean you?ve lost all progress. 9. self-reflect to help understand what your body needs vs what your emotions want you to do. taking a break vs isolating or avoiding 10. Live in the vora!! - Appointments Appointments/Referrals to Other Services:: 1. Follow up with Ghislaine Cruz for individual therapy. 2. Follow up with Katherine Montoya for medication management 3. IOP aftercare starting 10/31/21 at 2:00pm - Medications Home Medications: Home Medications omeprazole 40 mg capsule,delayed release 40 mg PO DAILY gerd 04/05/15 alprazolam 0.5 mg tablet 0.5 mg PO DAILY PRN anxiety 07/26/19 desogestrel 0.15 mg-ethinyl estradiol 0.03 mg tablet tab PO 10/18/20 bupropion HCl 100 mg tablet,12 hr sustained-release (Wellbutrin SR) 100 mg PO DAILY 06/19/21 diltiazem HCl 120 mg capsule,extended release 24 hr 120 mg PO .COMPLEX #100 caps 06/19/21 flecainide 100 mg tablet 100 mg PO Q12H #180 tabs 06/19/21 lamotrigine 150 mg tablet (Lamictal) 150 mg PO DAILY 06/19/21 sertraline 50 mg tablet (Zoloft) 50 mg PO DAILY 30 days #30 tabs 09/18/21
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
--- NOTE | 2021-10-24 10:10 | BH.SGPN.GN ---
Behaviors/Verbalizations/Mental Status: [] Eye contact is good. Motor activity is appropriate. Appearance is casual. Speech is Appropriate. Mood is euthymic. Affect is full. Thoughts are linear and logical. No evidence of psychosis. Client Response/Progress/Benefit: [] Pt was an active participant in group discussion. Attentive during psychoeducation and participated in group activity. Participated in interactive group discussion on internal and external barriers to mental health progress. Group identified examples of internal barriers as; negative thoughts, anxiety, cognitive distortions, and past experiences. External barriers identified were toxic people, lack of support/resources, stressful work, and housing issues. Pt babatunde a picture of her current reality which she described as waves of depression and anxiety. While the waves were impacting her they were not so overwhelming that it was consuming her. She felt that her mental health is currently manageable. Also babatunde a picture of her desired reality in which her waves of depression and anxiety were less intense and she had more hope and control over her emotions. Benefited from increased awareness of current barriers to progress as well as current/desired realities. Plan is to discharge from [facility] today. Narrative Note: []
--- NOTE | 2021-10-24 11:15 | BH.SGPN.GN ---
Behaviors/Verbalizations/Mental Status: []Pt alert and oriented, neatly dressed and groomed. Eye contact good. Motor activity appropriate. Speech within normal limits. Affect congruent, mood euthymic. Thoughts linear, logical, no signs of hallucinations or delusions. Client Response/Progress/Benefit: []Pt engaged during activity, encouraging peers and contributed as group brainstormed ideas on how to cope with internal barriers that keep pts stuck from moving towards goals. Able to identify barriers to desired reality. Identified barriers to current reality to include: all or nothing thinking, shoulds and unrealistic expectations, and lack of self-care. Pt wants to work on overcoming the barrier of all or nothing thinking by continuing to practicing living in the [place]. Benefited from group by identifying obstacles and solutions to desired reality.? Pt will discharge from IOP tx today as pt has accomplished her tx goals and no longer meets criteria for IOP level of care. Narrative Note: []
--- NOTE | 2021-10-24 14:30 | BH.MDN ---
Multi-Disciplinary Note - Note 30-min Individual Time Started:: 09:03 Date: 10/24/21 Purpose of session/treatment goals addressed:: To address current stressors and discuss strategies to help cope with these stressors. Another goal was to discuss discharge and aftercare. Eye Contact:: Good Motor Activity:: Appropriate Appearance:: Neat Speech:: Appropriate Mood:: Euthymic Affect:: Congruent Thoughts:: Linear, Logical, No evidence of hallucinations/delusions noted Staff Interventions:: discharge planning, strengths perspective, reviewed DSM-5, other - reviewed progress and coping skills Client Response:: Pt responded well to session, open to meeting with therapist. Pt reflected on the progress she has made while in IOP tx. Pt shared she is now able to accept compliments more, has reduced reassurance seeking, can challenge all or nothing thinking, and feels more confident. Pt reports she has also thought about her stressor from last session, which was to potentially confront her ex-. Pt stated after thinking it over, pt decided it would not be a good idea nor give her the closure she deserves. Pt shared she is feeling healthy and has a different perspective which has helped pt when she has down moments. Pt encouraged to follow up with her outpatient therapist, but pt shared she wants to wait until she completes some of IOP aftercare first. Reviewed coping skills pt can use to maintain gains and further improve self-esteem. Risks/Concerns:: Pt denies any suicidal ideations, plan, or intent. No thoughts of . Progress Toward Goals/Plan:: Pt will discharge from IOP tx today as pt has accomplished her tx goals and no longer meets criteria for IOP level of care. Pt reports improved mood, better confidence, more self-care, and increased ability to manage depression. Pt's DSM-5 scores decreased by 68% overall and pt's depression decreased by 60% since admission. Pt Wants to continue to work on reinforcing healthy coping skills, boundaries, and positive self-talk in aftercare and with her outpatient providers. Time Stopped:: 09:50
== END 2021-10-24 14:05 | disposition home or self-care (01) ==
LOC: BHIOP 07:24
PROVIDERS: PCP Family Medicine; Referring Provider Psychiatry & Neurology Psychiatry; Visit Provider Psychiatry & Neurology Psychiatry
DX: F33.2 Major depressive disorder, recurrent severe without psychotic features (principal); F40.11 Social phobia, generalized; G47.33 Obstructive sleep apnea (adult) (pediatric); G25.81 Restless legs syndrome; Z79.899 Other long term (current) drug therapy
CPT/HCPCS: S9480; 90832; 90834; 90853

== ENCOUNTER 2021-11-07 08:00 | Outpatient (RCR) | payer OTHER, SELFPAY ==
--- NOTE | 2021-11-07 14:00 | BH.SGPN.GN ---
Behaviors/Verbalizations/Mental Status: []Client alert and oriented, casually dressed and groomed. Eye contact good. Motor activity appropriate. Speech within normal limits. Affect congruent, mood euthymic. Thoughts linear, logical, no signs of hallucinations or delusions. Client Response/Progress/Benefit: []Client responded well to session AEB sharing thoughts and feelings and providing feedback throughout. Client reported she will see her therapist next week and already saw her medication prescriber. Client reported she has been struggling the last couple of days with feeling more down. Client stated she started to catch herself fall back into all or nothing thinking. Client connected with therapist that she is being harsh on herself, especially after the of a good friend last week. Client shared she recognizes the grief is likely impacting her mood and needs to work on being more self compassionate. Contributed to strategies for improving effective creation and application of believable personal affirmations. Client wrote down three affirmation statements she will say to herself everyday and evaluate effectiveness next week at aftercare group. Client to continue aftercare group to promote gains and further increase application of healthy coping skills.
--- NOTE | 2021-11-07 15:32 | BH.COMM ---
Communication Note - Communication with Client Communication Note: Presented completed IOP and presents today to start relapse prevention group which meets once weekly (1.5 hours) for 10 weeks. Case discussed with Dr. Avilez with plan to admit with dx of F33.2
--- NOTE | 2021-11-07 16:13 | BH.MTP ---
Master Treatment Plan - Patient Information Program Physician:: Dr. Shanthi Wayne Primary Therapist:: Annamaria PURCELL - Psychiatric Diagnoses Psychiatric Diagnoses:: Major depressive disorder, recurrent, severe without psychosis F 33.2; Social anxiety disorder F 40.11 Diagnosis Code(s):: F 33.2 - Estimated LOS Estimated LOS (in weeks):: 8 Problem/Goal #1 - Problem/Goal #1 Stated Goal:: client will maintain or see a reduction in symptoms AEB client score on the DSM 5 cross-cutting measure and improve client's daily functioning. - Objectives Objective #1 Stated Objective: Client will continue to consistently apply healthy coping skills to maintain progress made in IOP tx. Interventions: Through group therapy, client will review warning signs and triggers as well as healthy coping skills learned in IOP tx to successfully maintain gains while transitioning into outpatient therapy. Discharge Criteria: Client will have accomplished this goal when client's score on the DSM-5 cross-cutting measure has maintained or reduced over a 8 week period. Target Date: 01/02/22 Review Date: 12/05/21 Status: open Objective #2 Stated Objective: Client will learn and utilize 2-3 maintenance strategies to prevent decompensation from original IOP DSM-5 scores. Interventions: Through group therapy, client will be provided with education on healthy maintenance behaviors, relapse prevention techniques, and healthy coping strategies. Discharge Criteria: Client will have accomplished this goal when can report using at least 2 maintenance skills to prevent decompensation compared to original IOP DSM-5 scores Target Date: 01/02/22 Review Date: 12/05/21 Status: open
== END 2021-11-10 23:59 ==
LOC: BHOG 08:00
PROVIDERS: PCP Family Medicine; Referring Provider Psychiatry & Neurology Psychiatry; Visit Provider Psychiatry & Neurology Psychiatry
DX: F33.2 Major depressive disorder, recurrent severe without psychotic features (principal); F40.11 Social phobia, generalized
CPT/HCPCS: 90853

== ENCOUNTER 2021-11-11 07:40 | Outpatient (RCR) | payer OTHER, SELFPAY ==
--- NOTE | 2021-11-14 14:00 | BH.SGPN.GN ---
Behaviors/Verbalizations/Mental Status: []Client alert and oriented, casually dressed and groomed. Eye contact good. Motor activity appropriate. Speech within normal limits. Affect congruent. Mood euthymic. Thoughts linear, logical, no signs of hallucinations or delusions. Client Response/Progress/Benefit: []Client responded well to session AEB listening attentively to others and contributing to discussion at times. Client reported has been following through with seeing outpatient providers and taking medications. Client reported used skills when was having anxiety over the last week. Improved mood compared to last couple of weeks. Client attentive and engaged in discussion about personal values. Client worked with group to identify benefits of knowing personal values and how mental health can negatively be impacted when actions are not congruent with personal values. Client identified her top three personal values include: family/relationships, physical health, and mental/emotional health. Able to identify several activities can engage in to meet those identified values. Client seemed to benefit from increased awareness of personal values and identifying steps can take to ensure actions are meeting her values. Client to continue aftercare to maintain gains and prevent decompensation.
--- NOTE | 2021-11-21 14:00 | BH.SGPN.GN ---
Behaviors/Verbalizations/Mental Status: []Pt alert and oriented, casually dressed and groomed. Eye contact good. Motor activity appropriate. Speech within normal limits. Affect congruent, mood euthymic. Thoughts linear, logical, no signs of hallucinations or delusions. Client Response/Progress/Benefit: []Pt receptive of session, engaged throughout. Pt shared she has been taking her meds, she has an appointment with her therapist next week, and she is up to date with psychiatry. Pt reports using thought challenging and positive self-talk this past week. Receptive of discussion on sitting with the uncomfortable and emotional urges. Pt contributed to the discussion of distress tolerance and how building distress tolerance can help improve mood stability and resilience. Pt selected not jumping to fix her an issue her grandchild is having?as the situation that would make pt uncomfortable. Pt will practice thought challenging and self-talk to help with this. Pt seemed to benefit from support from peers and increasing understanding of distress tolerance. Will continue IOP aftercare group to maintain gains and reinforce healthy coping skills.? Narrative Note: []
--- NOTE | 2021-11-21 15:06 | BH.TPR ---
Treatment Plan Review Date of Admission:: 11/07/21 Date of Treatment Plan Review:: 11/21/21 Admitting Diagnoses:: Major depressive disorder, recurrent, severe without psychosis F 33.2; Social anxiety disorder F 40.11 Current Diagnoses:: Major depressive disorder, recurrent, severe without psychosis F 33.2; Social anxiety disorder F 40.11 Patient's Response to Treatment:: Pt responding well to treatment AEB pt's consistent attendance, active engagement in group discussions, follow up with outpatient therapy and psychiatry, and reporting use of skills outside treatment environment. Pt utilizes IOP aftercare to process current stressors and identify coping strategies. Status of Current Problems and Symptoms: Ongoing stressors include maintaining progress made in IOP, family stress with her grandchildren starting school, and health. Pt self-reports she has moments of negative thinking and depression, but it is still manageable. Problem #1 Problem Name:: Pt will maintain or see a reduction in sx Status of Goals:: Obj 1 complete with ongoing work encouraged- Pt has been able to maintain gains made in IOP as pt?s DSM-5 scores are 45% lower than they were at [facility] admission. Based on pt's self-report she has been able to manage anxiety and depressive symptoms much easier than she has in the past. Obj 2 - complete with ongoing work encouraged. Pt has been consistently reporting self-care, thought challenging, and self-talk. Team Recommendations:: Recommended client continue IOP aftercare group in addition to attending regular outpatient counseling in order to maintain gains.
--- NOTE | 2021-12-05 14:00 | BH.SGPN.GN ---
Behaviors/Verbalizations/Mental Status: []Pt alert and oriented, casually dressed. Eye contact good. Motor activity appropriate. Speech within normal limits. Affect congruent, mood euthymic. Thoughts linear, logical, no signs of hallucinations or delusions. Client Response/Progress/Benefit: []Pt responded well to session, engaged and providing emotional support. Pt checked in using aftercare worksheet and pt reports she did not have appointments with psychiatry or her therapist this week, but pt has been taking her medications. Pt has been using coping skills such as thought challenging, positive self-talk, and self-forgiveness. Pt participated in the discussion of self-love and how one can increase this. Pt reported there are some things pt has been able to change as she gets older to accept and love herself, but body image is an ongoing struggle for pt. Pt selected strategies to improve self-love and shared this week pt is going to focus on getting rid of clothes and other items that pt has been saving for one day that keep pt from enjoying her life now. Pt appeared to benefit from increasing skills to build self-love. Pt will continue IOP aftercare to further increase mood stability and promote gains made in IOP. Narrative Note: []
== END 2021-12-11 23:59 ==
LOC: BHOG 07:40
PROVIDERS: PCP Family Medicine; Referring Provider Psychiatry & Neurology Psychiatry; Visit Provider Psychiatry & Neurology Psychiatry
DX: F33.2 Major depressive disorder, recurrent severe without psychotic features (principal); F40.11 Social phobia, generalized
CPT/HCPCS: 90853

== ENCOUNTER 2021-12-12 07:39 | Outpatient (RCR) | payer OTHER, SELFPAY ==
--- NOTE | 2021-12-12 14:00 | BH.SGPN.GN ---
Behaviors/Verbalizations/Mental Status: []Pt alert and oriented, neatly dressed and groomed. Eye contact good. Motor activity appropriate. Speech within normal limits. Affect congruent, mood euthymic and worried. Thoughts linear, logical, no signs of hallucinations or delusions. Client Response/Progress/Benefit: []Pt responded well to session, Pt reports she has been taking her medication consistently and she recently saw her therapist and psychiatrist. Pt shared a recent stressor with the group and received support from peers and special certificate dictator. Pt also reflected on the coping skills she is using such as opposite action and goal setting. Pt engaged well during the discussion of the components of self-compassion. Pt connected with the benefits of self-compassion and participated in the activity of reframing a recent setback using self-compassion. Pt used the situation that pt left a reunion without thanking people and used the three pillars of self-compassion. Pt able to practice self-kindness and remind herself that she is human, and she is more than her short-comings. Pt appeared to benefit from practicing self-compassion and connecting with peers. Will continue aftercare to promote mood stability and reinforce healthy coping skills. Narrative Note: []
--- NOTE | 2021-12-19 16:17 | BH.DS_ITS ---
Discharge Summary - Demographics Date of Admission:: 11/07/21 Discharge Date: 12/19/21 Presenting Problems at Admission:: Pt discharged from IOP tx and transitioned to IOP aftercare to maintain gains pt made in IOP and to reinforce healthy coping skills. At admission to IOP aftercare, pt continued to report symptoms of depression, anxiety, and worries about family. Pt also was experiencing stressors with relationships, challenging negative core beliefs, and maintaining self-care. Discharge Diagnoses:: Major depressive disorder, recurrent, severe without psychosis F 33.2; Social anxiety disorder F 40.1 Reason for Discharge:: Pt has accomplished tx goals AEB ability to maintain mood stability and gains made in IOP. Pt's DSM-5 scores decreased by an additional 82% from IOP admission. Pt will transition to traditional outpatient counseling. - Treatment Progress During Treatment & Response: Pt responded well and made progress in IOP aftercare as evidenced by pt's participation in group discussions and self- report of consistently applying coping skills. Pt's overall DSM-5 scores decreased by 82% from IOP admission. Pt?s depression decreased by 80% since original IOP admission and pt's scores for anxiety decreased by 75% compared to original IOP scores. Additionally, at discharge Pt was reporting consistently practicing self-care, using healthy coping skills, and communicating with supports. Pt still has symptoms and stressors that need resolved and processed, but pt reports overall increased ability to cope. Issues Still to be Addressed:: [place] setting, self-care maintenance, and reinforcing healthy core beliefs. Discharge Recommendations/Instructions:: Pt will follow up with Katherine Montoya for medication management and Ghislaine Cruz for medication management. Discharge Handout: Complete Discharge Handout with client on aftercare options and continuity of care.
== END 2022-01-10 23:59 ==
LOC: BHOG 07:39
PROVIDERS: PCP Family Medicine; Referring Provider Psychiatry & Neurology Psychiatry; Visit Provider Psychiatry & Neurology Psychiatry
DX: F33.2 Major depressive disorder, recurrent severe without psychotic features (principal); F40.10 Social phobia, unspecified
CPT/HCPCS: 90853

== ENCOUNTER → 2022-07-07 | Outpatient (CLI) | payer OTHER, SELFPAY | END | disposition home or self-care (01) | LOC: SL 11:45 | PROVIDERS: PCP Family Medicine; Visit Provider Nurse Practitioner Acute Care | DX: R69 Illness, unspecified (principal) ==

== ENCOUNTER → 2022-10-28 | Outpatient (CLI) | payer OTHER, SELFPAY ==
--- NOTE | 2022-10-28 10:40 | STE_ITS ---
Reason For Study: SVT Stress Results Protocol: Aj Protocol Maximum Predicted HR: 155 bpm Target HR: 132 bpm % Maximum Predicted HR: 88 % DurationHeart Rate Stage (mm:ss) (bpm) BP Comment BASELINE 67 110/72 STAGE 1 3:00 96 114/70 STAGE 2 3:00 115 138/60 STAGE 3 3:00 136 142/62INCREASED SOB, NO CHEST PAIN RECOVERY 82 108/72 Stress Duration: 9:00 mm:ss Maximum Stress HR: 136 bpm Baseline Echocardiogram Findings Stress Echo Wall motion Data Resting WM Intermediate WM Stress WM ECHO/Stress Test Echo w/o Contrast Interpretation Summary Exercise stress echo. 67-year-old lady with a history of supraventricular tachyarrhythmia. Stress EKG. The resting EKG demonstrated sinus rhythm with a rate of 73 bpm nor mal intervals are noted. Resting blood pressure is 110/72. The patient exercised according to [facility] Aj protocol for total duration of 9 minutes completing stage III of the Aj protocol the maximum heart rate attained was 1 and 37 bpm which was 88% of max impacted heart rate the maximum workload was 10.1 metabolic equivalents. The patient maintained sinus rhythm throughout the recor ding. At rest there were no ST or T wave changes noted suggest ischemia and at peak exercise upslop ing ST changes were noted we did not meet the criteria for ischemia. No clinical angina was noted t he test was terminated due to fatigue. The peak blood pressure is 142/62 mmHg which was a n ormal blood pressure response to exercise rate-pressure product was 19,300. Stress echocardiogram. The resting echocardiogram demonstrated an ejection frac tion of 60% and during exercise there was improvement in left ventricular cavity size with redu ction and peaking of ejection fraction of 75% with no wall motion abnormalities present. Conclusion: Normal exercise stress echo with no EKG or echocardiographic criteria for ische rajeev at a high workload. Ordering Physician: Grayson Swartz Referring Physician: Grayson Swartz Performed By: Anthony Powell RVT, RDCSa and Student
== END | disposition home or self-care (01) ==
PROVIDERS: PCP Family Medicine; Referring Provider Internal Medicine Cardiovascular Disease; Visit Provider Internal Medicine Cardiovascular Disease
DX: I47.1 Supraventricular tachycardia (principal)
CPT/HCPCS: 93017; 93350

== ENCOUNTER 2023-03-28 15:10 | Emergency (ER) | payer BC, SELFPAY ==
[2023-03-28 15:10] VITALS: BP 124/80; PULSE 153; RESP 15; TEMP 36.6; O2SAT 100; BMI 29.2
[2023-03-28 15:15] VITALS: PULSE 135
--- NOTE | 2023-03-28 15:15 | EKG12_ITS ---
Test Reason : svt Blood Pressure : / mmHG Vent. Rate : 133 BPM Atrial Rate : 000 BPM P-R Int : 000 ms QRS Dur : 092 ms QT Int : 310 ms P-R-T Axes : 000 -13 048 degrees QTc Int : 461 ms Supraventricular tachycardia Incomplete right bundle branch block Nonspecific ST abnormality Abnormal ECG When compared with ECG of 24-AUG-2020 15:45, Incomplete right bundle branch block is now Present Confirmed by DULCE MARIA MUELLER, ANGELA ([id number]), metropolitan editor MARQUISE VERA ([id number]) on 03/31/2023 11:23:38 AM Referred By: Shaneka Confirmed By:ANGELA العراقي MD
--- NOTE | 2023-03-28 15:33 | EX.ED.DYSGE1 ---
HPI History of Present Illness Chief Complaint: Palpitations Informant: patient Onset/Context/Timing Onset: Today Context: Sudden Onset Timing: Continuous Quality: Pressure Location: Substernal Worsened by: Exertion Relieved by: Nothing Narrative Narrative: Patient presents with palpitations that began today. Patient states it began rather suddenly. Patient states she can feel her heart racing. Patient states she was having some substernal pressure. Patient states it is worse with walking and exertion. Patient with moderate systems denies any shortness of breath or cough. Patient denies any pain in her chest. Patient admits to some intermittent nausea. Patient states she took Cardizem at home with no improvement of her symptoms. Patient states she took a second dose of Cardizem with no improvement of her symptoms. Patient states she tried Valsalva maneuvers at home with no improvement. [facility] Medical History AVNRT (AV jaleel re-entry tachycardia) Cervical spondylosis without myelopathy Daytime hypersomnia Finding of multiple premature atrial contractions by electrocardiography GERD (gastroesophageal reflux disease) History of depression Hypersomnia Intermittent palpitations Major depressive disorder, recurrent severe without psychotic features Obesity Social anxiety disorder Home Medications omeprazole 40 mg capsule,delayed release 40 mg PO DAILY gerd 04/05/15 [History Last Taken 07/17/19] alprazolam 0.5 mg tablet 0.5 mg PO DAILY PRN anxiety 07/26/19 [History Last Taken Unknown] bupropion HCl 100 mg tablet,12 hr sustained-release (Wellbutrin SR) 100 mg PO DAILY 06/19/21 [History Last Taken Unknown] lamotrigine 150 mg tablet (Lamictal) 200 mg PO QHS 06/19/21 [History Last Taken Unknown] sertraline 50 mg tablet (Zoloft) 50 mg PO DAILY 30 days #30 tabs 09/18/21 [Rx Last Taken Unknown] flecainide 100 mg tablet 100 mg PO Q12H #180 tabs 06/30/22 [Rx Last Taken Unknown] diltiazem HCl 120 mg capsule,extended release 24 hr 120 mg PO .COMPLEX #100 caps 08/25/22 [Rx Last Taken Unknown] estradiol 0.01% (0.1 mg/gram) vaginal cream 1 appful vaginal 2XW 10/17/22 [History Last Taken Unknown] estradiol 0.5 mg tablet 0.5 mg PO DAILY 10/17/22 [History Last Taken Unknown] medroxyprogesterone 2.5 mg tablet 2.5 mg PO DAILY 10/17/22 [History Last Taken Unknown] Allergy/AdvReac Type Severity Reaction Status Date / Time metoprolol AdvReac severe Verified 03/28/23 15:13 fatigue Family History Father Colon cancer Daughter Thyroid disorder Surgical History History of radiofrequency ablation procedure for cardiac arrhythmia (10/24/19) History of tubal ligation uterin ablation Social History Smoking Status: Never smoker alcohol intake: current alcohol intake frequency: holidays/special occasions only caffeine: Yes Type: coffee Number of servings: 1 ROS ROS ED Constitutional Constitutional ED: Denies chills or fever(s) Eyes Eyes: Denies blurry vision or change in vision ENT ENT ED: Denies rhinorrhea or sore throat Cardiovascular Cardiovascular: Reports palpitations; Denies chest pain Respiratory/Chest Respiratory/Chest: Denies cough or dyspnea Gastrointestinal Gastrointestinal: Reports nausea; Denies vomiting Genitourinary Genitourinary ED: Denies dysuria or hematuria Musculoskeletal Musculoskeletal: Denies back pain or neck pain Integumentary Denies abscess or rash Neurologic Neurologic: Denies headache(s) or weakness Allergic/Immunologic Allergic/Immunologic ED: Denies mouth swelling or urticaria EXAM Physical Exam Const Vital Signs: 03/28/23 15:10 03/28/23 15:15 03/28/23 15:17 Temperature 97.8 F Temperature Source Temporal Pulse Rate 153 H 135 H Respiratory Rate 15 Respiratory Effort Normal Non-Labored Blood Pressure 124/80 H Blood Pressure Mean 94 Pulse Ox 100 Oxygen Delivery Method Room Air 03/28/23 16:03 03/28/23 16:04 03/28/23 16:48 Temperature Temperature Source Pulse Rate 137 H 146 H 92 Respiratory Rate 15 21 H 17 Respiratory Effort Blood Pressure 127/77 H Blood Pressure Mean 93 Pulse Ox 100 100 95 Oxygen Delivery Method Room Air Room Air Room Air Positive well nourished and well developed General Appearance ED: well developed and NAD HEENT Reports moist mucous membranes Neck supple and no JVD Chest Wall inspection of chest normal and palpation of chest normal Resp normal respiratory effort and clear to auscultation bilaterally Cardio regular rhythm Rate: tachycardic GI non-tender and non-distended Palpation: soft Neuro oriented x3, CN's II-XII intact bilaterally and no sensory deficits noted Sensorium / Orientation: alert Motor Exam: strength 5/5 throughout Psych mental status grossly normal MDM MDM MDM Narrative Medical decision making narrative: Differential diagnosis includes SVT, cardiac dysrhythmia, cardiac ischemia, dehydration, and electrolyte abnormality. EKG will be obtained to assess for cardiac dysrhythmia and cardiac ischemia. CBC will be obtained to assess for anemia and leukocytosis. Basic metabolic profile will be obtained to assess for electrolyte abnormality and dehydration. High-sensitivity troponin will be obtained to assess for cardiac ischemia. Lab Data Attestation: I reviewed the patient's lab results. Lab results narrative: CBC was reviewed and was within normal limits. Basic metabolic profile was reviewed and was within normal limits. Initial high-sensitivity troponin was reviewed and was normal at 10. Labs: Laboratory Results - last 24 hr 03/28/23 15:50 WBC 9.3 RBC 4.42 Hgb 14.0 Hct 41.0 MCV 92.8 MCH 31.7 MCHC 34.1 RDW Std Deviation 42.0 RDW Coeff of Lawanda 12.2 Plt Count 337 MPV 9.1 Immature Gran % (Auto) 0.100 Neut % (Auto) 65.1 Lymph % (Auto) 26.0 [place] % (Auto) 6.6 Eos % (Auto) 1.6 Baso % (Auto) 0.6 Absolute Neuts (auto) 6.0 Absolute Lymphs (auto) 2.41 Nucleated RBC % 0 Sodium 138 Potassium 3.8 Chloride 106 Carbon Dioxide 24.0 Anion Gap 8 BUN 31 H Creatinine 1.07 H Estim Creat Clear Calc 44.66 Est GFR (MDRD) Af Amer 66 Est GFR (MDRD) Non-Af 55 L BUN/Creatinine Ratio 29.0 H Glucose 119 H Calcium 10.1 Troponin I High Sens 10 Radiography Diagnostic Testing: Clinical Impression(s) from Imaging Studies Chest X-Ray 03/28/23 16:23 IMPRESSION: No acute cardiopulmonary abnormality. No interval change. Electronically Signed: Itz Mello MD at 16:44 EST , Portable 1 view chest x-ray was obtained. On my independent interpretation, lung edgar are clear. There is normal cardiac silhouette. Bony thorax is normal. There is no acute process noted. Radiologist also interpreted the x-ray and agrees. EKG Initial EKG: Attestation: I personally reviewed and interpreted this EKG as follows: Interpretation: SVT (133) and Non-Specific ST Changes Comments: EKG was obtained. On my independent interpretation, shows supraventricular tachycardia with a rate of 133. QRS interval was normal at 92 ms. QTc interval was normal at 461 ms. There is borderline left axis deviation at -13. There are nonspecific ST-T wave changes noted. Prior EKG tracings: available for review Prior: Unchanged (Compared to stress test dated 10/28/2022) Follow-up EKG: Attestation: I personally reviewed and interpreted this EKG as follows: Interpretation: Sinus Rhythm (with first-degree AV block with a rate of 87) and No Acute Injury Pattern Comments: EKG was obtained. On my independent interpretation, it showed a normal sinus rhythm with a first-degree AV block with a rate of 87. NH interval was slightly prolonged at 210 ms. QRS and QTc intervals were normal. [place] was normal. There are no acute ST or T wave changes. Prior EKG tracings: available for review Prior: Unchanged Treatment and Re-Evaluation :: Patient was given IV fluids. Patient was given a dose of adenosine 6 mg with no change in her heart rate. Patient was given a dose of adenosine 12 mg and her heart rate improved to 118. Patient's heart rate then improved slowly to 92. Patient is feeling better on reevaluation. Patient was advised of her findings. Patient was instructed to follow-up with her primary care physician and professor of social work in 5 to 7 days. Patient understood and was agreeable with the plan. All questions were answered. Discharge Plan Triage Chief Complaint: Palpitations ED Provider: Bhanu Gomez Dx/Rx/DC Orders Clinical Impression: SVT (supraventricular tachycardia) Instructions: ED Palpitations Prescriptions: No Action alprazolam 0.5 mg tablet 0.5 mg PO DAILY PRN (Reason: anxiety) Patient Comments: TAKE 1 TABLET BY MOUTH ONCE DAILY FOR 20 DAYS. bupropion HCl [Wellbutrin SR] 100 mg tablet sustained-release 12 hr 100 mg PO DAILY lamotrigine [Lamictal] 150 mg tablet 200 mg PO QHS medroxyprogesterone 2.5 mg tablet 2.5 mg PO DAILY estradiol 0.5 mg tablet 0.5 mg PO DAILY estradiol 0.01 % (0.1 mg/gram) cream 1 appful vaginal 2XW omeprazole 40 MG capsule 40 mg PO DAILY sertraline [Zoloft] 50 mg tablet 50 mg PO DAILY 30 Days Qty: 30 1RF flecainide 100 mg tablet 100 mg PO Q12H Qty: 180 3RF diltiazem HCl 120 mg capsule,extended release 24hr 120 mg PO .COMPLEX Qty: 100 3RF Rx Instructions: 120 mg PO daily, may take 1 extra prn if she goes into SVT; Primary Care Provider: Dom Godinez Referrals: Grayson Swartz MD [Med Staff - Active Staff] - 5-7 Days Dom Godinez MD [Primary Care Provider] - 5-7 Days Disposition Disposition: Home, Self Care
--- NOTE | 2023-03-28 15:54 | EKG12_ITS ---
Test Reason : repeat Blood Pressure : / mmHG Vent. Rate : 087 BPM Atrial Rate : 087 BPM P-R Int : 210 ms QRS Dur : 096 ms QT Int : 378 ms P-R-T Axes : 068 -15 050 degrees QTc Int : 454 ms Sinus rhythm with 1st degree A-V block Otherwise normal ECG Confirmed by DULCE MARIA MUELLER, ANGELA ([id number]), international editorial producer MARQUISE VERA ([id number]) on 03/30/2023 1:17:38 PM Referred By: Confirmed By:ANGELA العراقي MD
[2023-03-28] MEDS: 0.9% Normal Saline (1000mL) 1,000 ML 1000 ML IV (16:01)
[2023-03-28] MEDS: Adenosine 6 MG/2 ML Syringe IV (16:01)
[2023-03-28 16:03] VITALS: PULSE 137; RESP 15; O2SAT 100
[2023-03-28 16:04] VITALS: PULSE 146; RESP 21; O2SAT 100
[2023-03-28 16:05] LABS: Absolute Lymphocyte Count 2.41 X10^3/uL (0.83-4.51); Basophil# 0.06 X10^3/uL; Basophil% 0.6 % (0-1); Eosinophil# 0.15 X10^3/uL; Eosinophils% 1.6 % (0-5); Lymphocyte # 2.41 X10^3/ul (0.83-4.51); Mean Corp Hgb Conc 34.1 g/dL (32-36); Mean Corpuscular Hgb 31.7 pg (27.0-32.0); Mean Corpuscular Volume 92.8 fL (81-99); Mean Platelet Vol. 9.1 fl (6.2-12.0); Monocyte# 0.61 X10^3/uL; Monocyte% 6.6 % (0-10); NRBC Flagged by Analyzer 0 % (0-5); Neutrophil # 6.04 X10^3/uL (2.7-7.7); Neutrophil % 65.1 % (47-70); Platelet Count 337 K/mm3 (150-450); RBC Distribution Width CV 12.2 % (11.6-14.6); Red Blood Count 4.42 M/mm3 (4.2-5.4); White Blood Count 9.3 K/mm3 (4.4-11.0)
[2023-03-28] MEDS: Adenosine 6 MG/2 ML Syringe 12 MG IV (16:09)
[2023-03-28 16:23] LABS: Anion Gap 8 (5-15); BUN 31 mg/dL (7-18); Calcium,Total 10.1 mg/dL (8.5-10.1); Chloride 106 mmol/L (98-107); Creatinine, Serum 1.07 mg/dL (0.55-1.02); EST Glomerular Filtration Rate 55 mL/min (>60); Est Glom Filt Rate - Afr Amer 66 mL/min (>60); Estimated Creatinine Clearance 44.66 ml/min; Glucose 119 mg/dL (74-106); Potassium 3.8 mmol/L (3.5-5.1); Sodium Level 138 mmol/L (136-145); Troponin-I HS 10 pg/mL (3.0-54.0)
--- NOTE | 2023-03-28 16:23 | RAD_ITS ---
EXAM: XR CHEST, 1 VIEW CLINICAL INDICATION: Palpitations TECHNIQUE: Frontal view of the chest. COMPARISON: XR Chest dated 08/13/2019 FINDINGS: LUNGS AND PLEURAL SPACES: Normal. No consolidation or edema. No pneumothorax. No effusion. HEART: Normal heart size. MEDIASTINUM: No mediastinal or hilar mass. BONES/JOINTS: No acute abnormality. RAD/Chest 1 View (Portable) IMPRESSION: No acute cardiopulmonary abnormality. No interval change. Electronically Signed: Itz Mello MD at 16:44 EST ,
[2023-03-28 16:48] VITALS: BP 127/77; PULSE 92; RESP 17; O2SAT 95
[2023-03-28 17:39] VITALS: BP 117/72; PULSE 64; RESP 15; O2SAT 99
== END 2023-03-28 17:40 | disposition home or self-care (01) ==
PROVIDERS: Emergency Provider Emergency Medicine; PCP Family Medicine; Visit Provider Emergency Medicine
DX: I47.10 Supraventricular tachycardia, unspecified (principal); K21.9 Gastro-esophageal reflux disease without esophagitis; F32.9 Major depressive disorder, single episode, unspecified; Z79.899 Other long term (current) drug therapy
CPT/HCPCS: 71045; 80048; 84484; 85025; 93005; 96361; 96374; 99284; J7030; A4216; J0153

== ENCOUNTER 2023-11-15 14:20 | Inpatient (IN) | payer MEDICARE, OTHER, SELFPAY ==
[2023-11-15] VITALS (23 sets, daily range): BP systolic 91–181; BP diastolic 49–170; PULSE 58–175; RESP 12–26; TEMP 36–37.2; O2SAT 94–100; BMI 23.3; BMI 29.9
[2023-11-15] MEDS: 0.9% Normal Saline (1000mL) 1,000 ML 999 ML IV (14:21)
--- NOTE | 2023-11-15 14:40 | EKG12_ITS ---
Test Reason : SVT Blood Pressure : / mmHG Vent. Rate : 175 BPM Atrial Rate : 000 BPM P-R Int : 000 ms QRS Dur : 094 ms QT Int : 272 ms P-R-T Axes : 000 132 095 degrees QTc Int : 464 ms Critical Test Result: High HR Supraventricular tachycardia Right axis deviation Pulmonary disease pattern Marked ST abnormality, possible inferolateral subendocardial injury Abnormal ECG Confirmed by Micheal Hammer ([id number]), communications editor AUDREY BASILIO ([id number]) on 11/17/2023 1:59:02 PM Referred By: DAVID Confirmed By:Micheal Hammer
--- NOTE | 2023-11-15 14:45 | EKG12_ITS ---
Test Reason : REPEAT Blood Pressure : / mmHG Vent. Rate : 146 BPM Atrial Rate : 182 BPM P-R Int : 000 ms QRS Dur : 102 ms QT Int : 290 ms P-R-T Axes : 000 086 065 degrees QTc Int : 451 ms Critical Test Result: High HR Atrial fibrillation with Rapid ventricular response Nonspecific ST abnormality Abnormal ECG Confirmed by Micheal Hammer ([id number]), editor managing newspaper AUDREY BASILIO ([id number]) on 11/17/2023 2:01:00 PM Referred By: DAVID Confirmed By:Micheal Hammer
[2023-11-15] MEDS: Adenosine 6 MG/2 ML Syringe 12 MG IV (14:46)
[2023-11-15] MEDS: dilTIAZem 25 MG/5 ML Vial 10 MG IV BOLUS ×2 (14:47→14:59)
[2023-11-15] MEDS: Ondansetron 4 MG/2 ML Vial IV (14:47)
[2023-11-15 14:50] LABS: Absolute Lymphocyte Count 2.02 X10^3/uL (0.83-4.51); Absolute Neutrophil Count 4.3 X10^3/uL (2.0-7.7); Basophil# 0.06 X10^3/uL; Basophil% 0.8 % (0-1); Eosinophil# 0.15 X10^3/uL; Eosinophils% 2.1 % (0-5); Hematocrit 38.5 % (37-47); Lymphocyte # 2.02 X10^3/ul (0.83-4.51); Lymphocyte % 28.5 % (19-41); Mean Corp Hgb Conc 33.8 g/dL (32-36); Mean Corpuscular Hgb 30.7 pg (27.0-32.0); Mean Platelet Vol. 9.1 fl (6.2-12.0); Monocyte# 0.52 X10^3/uL; Monocyte% 7.3 % (0-10); NRBC Flagged by Analyzer 0 % (0-5); Neutrophil # 4.32 X10^3/uL (2.7-7.7); Neutrophil % 61.2 % (47-70); Platelet Count 309 K/mm3 (150-450); RBC Distribution Width CV 11.8 % (11.6-14.6); RBC Distribution Width SD 39.3 fl (35.1-43.9); Red Blood Count 4.23 M/mm3 (4.2-5.4); White Blood Count 7.1 K/mm3 (4.4-11.0)
[2023-11-15 15:27] LABS: ALB/GLOB Ratio 1.2 RATIO (0.9-2.4); AST(SGOT) 16 U/L (15-37); Alanine Aminotransfer ALT/SGPT 16 U/L (13-56); Alkaline Phosphatase 48 U/L (45-117); Anion Gap 15 (5-15); BUN 24 mg/dL (7-18); BUN/Creat Ratio 19.2 RATIO (10-20); Calcium,Total 9.2 mg/dL (8.5-10.1); Chloride 108 mmol/L (98-107); Creatinine, Serum 1.25 mg/dL (0.55-1.02); EST Glomerular Filtration Rate 46 mL/min (>60); Est Glom Filt Rate - Afr Amer 55 mL/min (>60); Estimated Creatinine Clearance 41.44 ml/min; Globulin 3.3 g/dL (2.2-4.2); Glucose 117 mg/dL (74-106); Magnesium 1.8 mg/dL (1.6-2.6); Potassium 3.8 mmol/L (3.5-5.1); Protein, Total 7.3 g/dL (6.4-8.2); Sodium Level 140 mmol/L (136-145); Troponin-I HS (w/2H Reflex) 28 pg/mL (3.0-54.0)
--- NOTE | 2023-11-15 15:30 | RAD_ITS ---
EXAM: XR CHEST, 1 VIEW CLINICAL INDICATION: chest pain TECHNIQUE: Frontal view of the chest. COMPARISON: 03/28/2023 FINDINGS: LUNGS AND PLEURAL SPACES: No significant abnormality. No consolidation or edema. No pneumothorax. No effusion. HEART: No significant abnormality. Cardiac silhouette not enlarged. MEDIASTINUM: Central airways and mediastinal contour are unremarkable. BONES/JOINTS: No significant abnormality. No acute fracture. SOFT TISSUES: No significant abnormality. RAD/Chest 1 View (Portable) IMPRESSION: No radiographic evidence of acute cardiopulmonary disease. Electronically Signed: Tyrone Mejia DO at 15:41 EDT ,
--- NOTE | 2023-11-15 15:36 | EX.ED.DYSGE1 ---
HPI History of Present Illness Chief Complaint: Palpitations Narrative Narrative: 68-year-old female past medical history of supraventricular tachycardia for which she takes flecainide and Cardizem 120 mg twice a day presents with elevated heart rate and feelings of nausea. She is status post ablation for her SVT. The last time this happened was months ago. She states that she is converted with Cardizem in the past after adenosine was unsuccessful. She was told by her welding machine operator helper arc that although she takes 120 mg of Cardizem twice a day, if she gets the SVT feeling, that she can take her rescue dose. Today she was at [facility] and started feeling heart palpitations associated with nausea. She did not have her extra dose of Cardizem available. EMS was called and they administered 6 mg and 12 mg of adenosine without successful breaking of her SVT as she was found to have heart rate in the 180s to 190s. She denies any chest pain. She states that she feels strange with her elevated heart rate. [facility] Medical History Social anxiety disorder Major depressive disorder, recurrent severe without psychotic features Hypersomnia Finding of multiple premature atrial contractions by electrocardiography Daytime hypersomnia Obesity Intermittent palpitations AVNRT (AV jaleel re-entry tachycardia) Cervical spondylosis without myelopathy GERD (gastroesophageal reflux disease) History of depression Home Medications ?Medication ?Instructions ?Recorded ?Last Taken ?Type omeprazole 40 mg capsule,delayed 40 mg PO DAILY gerd 04/05/15 07/17/19 History release alprazolam 0.5 mg tablet 0.5 mg PO DAILY PRN anxiety 07/26/19 Unknown History bupropion HCl 100 mg tablet,12 hr 100 mg PO DAILY 06/19/21 Unknown History sustained-release (Wellbutrin SR) lamotrigine 150 mg tablet 200 mg PO QHS 06/19/21 Unknown History (Lamictal) sertraline 50 mg tablet (Zoloft) 50 mg PO DAILY 30 days #30 tabs 09/18/21 Unknown Rx estradiol 0.01% (0.1 mg/gram) 1 appful vaginal 2XW 10/17/22 Unknown History vaginal cream estradiol 0.5 mg tablet 0.5 mg PO DAILY 10/17/22 Unknown History medroxyprogesterone 2.5 mg tablet 2.5 mg PO DAILY 10/17/22 Unknown History flecainide 100 mg tablet 100 mg PO Q12H #180 tabs 06/30/23 Unknown Rx diltiazem HCl 120 mg 120 mg PO BID #180 caps 09/02/23 Unknown Rx capsule,extended release 24 hr Allergy/AdvReac Type Severity Reaction Status Date / Time metoprolol AdvReac severe Verified 11/15/23 14:21 fatigue Family History Father Colon cancer Daughter Thyroid disorder Surgical History History of radiofrequency ablation procedure for cardiac arrhythmia (10/24/19) History of tubal ligation uterin ablation Social History Smoking Status: Never smoker alcohol intake: current alcohol intake frequency: holidays/special occasions only caffeine: Yes Type: coffee Number of servings: 1 ROS ROS ED ROS Narrative Constitutional: No fever, no chills. Feels sweaty. HEENT: No sore throat. No neck pain. No loss of vision. No rhinorrhea. Cardiovascular: No chest pain. Positive palpitations no pedal edema. Respiratory: No cough, no shortness of breath. Abdominal: No abdominal pain. Positive nausea. No vomiting. Genitourinary: No dysuria. No hematuria. Musculoskeletal: No myalgias. No arthralgias. Neurologic: No headaches. No dizziness. No lightheadedness. Skin: No rash. No change in color. Psychiatric: No depression. No anxiety. EXAM Physical Exam Narrative Exam Narrative: Afebrile. Vital signs noted. Mild diaphoresis. HEENT: Normocephalic. Atraumatic. PERRL, EOMI. Neck soft and supple. No point tenderness or step off. Cardiovascular: Positive tachycardia in the 180s to 190s. No murmurs, rubs, or gallops appreciated. Respiratory: No tachypnea. Lungs clear to auscultation bilaterally. Gastrointestinal: Abdomen soft, nontender, with normoactive bowel sounds. No rebound or guarding. Neurological: Awake. Alert. Nonfocal, nonlateralizing. Skin: No rash. Normal color. No pallor. Musculoskeletal: No pedal edema. Full range of motion extremities. Const Vital Signs: 11/15/23 14:20 11/15/23 14:20 11/15/23 14:20 Temperature 96.8 F L 96.8 F L Temperature Source Temporal Temporal Pulse Rate 165 H 158 H 175 H Respiratory Rate 26 H 22 H 24 H Blood Pressure 159/109 H 181/170 H 181/170 H Blood Pressure Mean 125 173 173 Pulse Ox 100 99 Oxygen Delivery Method Nasal Cannula Room Air Oxygen Flow Rate (L/min) 2 11/15/23 14:40 11/15/23 15:20 11/15/23 16:00 Temperature Temperature Source Pulse Rate 109 H 113 H Respiratory Rate 18 20 H Blood Pressure 125/71 H 124/83 H Blood Pressure Mean 89 96 Pulse Ox 100 98 Oxygen Delivery Method Nasal Cannula Nasal Cannula Room Air Oxygen Flow Rate (L/min) 5 MDM MDM MDM Narrative Medical decision making narrative: Differential diagnosis includes but not limited to paroxysmal supraventricular tachycardia versus atrial fibrillation. Upon entering the room, she is mildly diaphoretic and she has an elevated heart rate. Will give the third dose of adenosine in the form of 12 mg intravenously. She did slow her rate down into the 140s temporarily, but then became tachycardic again. As she states that she takes Cardizem and is supposed to take an extra dose, she was administered an IV bolus of 10 mg and she had slight lowering of her heart rate into the 140s to 150s. EKG was obtained initially and interpreted by myself as supraventricular tachycardia at [address] changes. No STEMI. Rhythm strip was performed. She had a wide-complex tachycardia for about 16 beats as noted in lead V1. A second EKG was performed after the initial dose of Cardizem and interpreted by myself independently as atrial flutter at [address] changes. Once again no STEMI. She was given an additional bolus of Cardizem 10 mg very slowly. Her heart rate is now in the 1 teens at 113 bpm. Instead of starting her on a drip as her heart rate is less than 120 bpm, she was given 120 mg of Cardizem CD. I reviewed her laboratory work and she has normal white count of 7.1, hemoglobin normal at 13.0, hematocrit 38.5, platelet count normal at 309. Electrolyte panel shows chloride elevated at 108 which I think is nonspecific BUN of 24 and creatinine slightly elevated at 1.25, glucose elevated at 117 with a normal anion gap of 15. High-sensitivity troponin is 28. Chest x-ray 1 view interpreted by myself independently shows no evidence of acute cardiopulmonary disease, no pneumothorax, no pneumonia. I reviewed the radiology report which confirms my independent interpretation. Given her atrial fibrillation/atrial flutter with rapid ventricular response, I discussed patient with Dr. Radha Arriaza for admission and probable cardiology consultation. She was able to talk to Dr. Little in consultation who requested that the patient be started on a Cardizem drip as well as a heparin drip. She will be admitted to the ICU. Patient is in improved and stable condition. History & Record Review Discussion w/independent historian: Patient and Family Lab Data Attestation: I reviewed the patient's lab results. Labs: Laboratory Results - last 24 hr 11/15/23 14:44 WBC 7.1 RBC 4.23 Hgb 13.0 Hct 38.5 MCV 91.0 MCH 30.7 MCHC 33.8 RDW Std Deviation 39.3 RDW Coeff of Lawanda 11.8 Plt Count 309 MPV 9.1 Immature Gran % (Auto) 0.100 Neut % (Auto) 61.2 Lymph % (Auto) 28.5 [place] % (Auto) 7.3 Eos % (Auto) 2.1 Baso % (Auto) 0.8 Absolute Neuts (auto) 4.3 Absolute Lymphs (auto) 2.02 Nucleated RBC % 0 Sodium 140 Potassium 3.8 Chloride 108 H Carbon Dioxide 17.0 L Anion Gap 15 BUN 24 H Creatinine 1.25 H Estim Creat Clear Calc 41.44 Est GFR (MDRD) Af Amer 55 L Est GFR (MDRD) Non-Af 46 L BUN/Creatinine Ratio 19.2 Glucose 117 H Calcium 9.2 Magnesium 1.8 Total Bilirubin 0.60 AST 16 ALT 16 Alkaline Phosphatase 48 Troponin I High Sens 28 Total Protein 7.3 Albumin 4.0 Globulin 3.3 Albumin/Globulin Ratio 1.2 Radiography Chest X-Ray - ED: 1 View, Read by ED Physician and Read by Radiologist Diagnostic Testing: Clinical Impression(s) from Imaging Studies Chest X-Ray 11/15/23 15:30 IMPRESSION: No radiographic evidence of acute cardiopulmonary disease. Electronically Signed: Tyrone Mejia DO at 15:41 EDT , Management Discussion w/another healthcare provider: Hospitalist (Dr. Radha Arriaza) Critical Care Time Critical care time (excluding procedures): 30-74 minutes (31 minutes), Including time spent:, Discussing w/Patient &/or Family/Hand Developer, Discussing w/Consultants, Arranging Admission or Transfer and Performing Direct Patient Care at Bedside Discharge Plan Dx/Rx/DC Orders Clinical Impression: SVT (supraventricular tachycardia), Atrial fibrillation Disposition Disposition: Acute Care Hospital [facility]
[2023-11-15] MEDS: dilTIAZem CD 120 MG Capsule PO (16:08)
--- NOTE | 2023-11-15 16:44 | HP.PCM.HOS_ITS ---
HPI - General General Date of Admission: 11/15/23 Date of Service: 11/15/23 Chief Complaint: Fast heart rate HPI Narrative SANTIAGO GUADALUPE, is a 68 F with a history of SVT with history of ablation and depression who presented to [facility] ED 11/15/2023 due to elevated heart rate. Patient brought to ED by mary, in EMS she got 6 mg of adenosine followed by 12 mg of adenosine but remained with heart rate 170s, given another 12 of adenosine in the ED with persistent elevation of heart rate. Given 10 of Cardizem with heart rate to 140s and appeared to be in A-fib and was given another 10 of Cardizem with heart rate to 120s but when patient got up went back up to 190s and subsequently improved when patient was resting again. Overall labs unremarkable and workup otherwise negative so hospitalist contacted for admission. Patient evaluated bedside. Patient has history of SVT and last significant run was last March, since that time however she has had little bursts but nothing sustained. She is supposed to get another ablation but was told she will be called in December and scheduled for the ablation in January. In regards to this event she notes she was hiking with and noticed her heart racing, she began to be symptomatic after period of time with nausea and felt dizzy and had near syncopal episode prompting squad to be called. Heart rate still mildly elevated and she denies any history of A-fib and still reports her chest feels off and that she can tell something is wrong. No longer feeling dizzy or nauseous and has no other current complaints and had been in her usual health until this time. ROS otherwise negative [facility] Medical History (Updated 11/15/23 @ 17:[address] Radha Arriaza MD) AVNRT (AV jaleel re-entry tachycardia) Cervical spondylosis without myelopathy Daytime hypersomnia Finding of multiple premature atrial contractions by electrocardiography GERD (gastroesophageal reflux disease) History of depression Hypersomnia Intermittent palpitations Major depressive disorder, recurrent severe without psychotic features Obesity Social anxiety disorder Home Medications ?Medication ?Instructions ?Recorded ?Last Taken ?Type omeprazole 40 mg capsule,delayed 40 mg PO DAILY gerd 04/05/15 07/17/19 History release alprazolam 0.5 mg tablet 0.5 mg PO DAILY PRN anxiety 07/26/19 Unknown History bupropion HCl 100 mg tablet,12 hr 100 mg PO DAILY 06/19/21 Unknown History sustained-release (Wellbutrin SR) lamotrigine 150 mg tablet 200 mg PO QHS 06/19/21 Unknown History (Lamictal) sertraline 50 mg tablet (Zoloft) 50 mg PO DAILY 30 days #30 tabs 09/18/21 Unknown Rx estradiol 0.01% (0.1 mg/gram) 1 appful vaginal 2XW 10/17/22 Unknown History vaginal cream estradiol 0.5 mg tablet 0.5 mg PO DAILY 10/17/22 Unknown History medroxyprogesterone 2.5 mg tablet 2.5 mg PO DAILY 10/17/22 Unknown History flecainide 100 mg tablet 100 mg PO Q12H #180 tabs 06/30/23 Unknown Rx diltiazem HCl 120 mg 120 mg PO BID #180 caps 09/02/23 Unknown Rx capsule,extended release 24 hr Allergy/AdvReac Type Severity Reaction Status Date / Time metoprolol AdvReac severe Verified 11/15/23 14:21 fatigue Family History Father Colon cancer Daughter Thyroid disorder Surgical History History of radiofrequency ablation procedure for cardiac arrhythmia (10/24/19) History of tubal ligation uterin ablation Social History Smoking Status: Never smoker alcohol intake: current alcohol intake frequency: holidays/special occasions only caffeine: Yes Type: coffee Number of servings: 1 ROS ROS Narrative General: Denies fever/chills HENT: Denies headache, denies stuffy nose, denies sore throat EYES: Denies changes in vision Resp: Denies cough, denies shortness of breath Cardiac: Denies chest pain but feels off in her chest GI: Denies abdominal pain, denies changes in bowel, denies nausea/vomiting : Denies changes in urination Extremity: Denies swelling MSK: Denies weakness Neuro: Denies any numbness/tingling Heme: Denies any bleeding or bruising Skin: Denies rashes Psychiatric: No complaints voiced Vital Signs Vital Signs Vital Signs: 11/15/23 14:20 11/15/23 14:20 11/15/23 14:20 Temperature 96.8 F L 96.8 F L Temperature Source Temporal Temporal Pulse Rate 165 H 158 H 175 H Respiratory Rate 26 H 22 H 24 H Blood Pressure 159/109 H 181/170 H 181/170 H Blood Pressure Mean 125 173 173 Pulse Ox 100 99 Oxygen Delivery Method Nasal Cannula Room Air Oxygen Flow Rate (L/min) 2 11/15/23 14:40 11/15/23 15:20 11/15/23 16:00 Temperature Temperature Source Pulse Rate 109 H 113 H Respiratory Rate 18 20 H Blood Pressure 125/71 H 124/83 H Blood Pressure Mean 89 96 Pulse Ox 100 98 Oxygen Delivery Method Nasal Cannula Nasal Cannula Room Air Oxygen Flow Rate (L/min) 5 Weight Weight: 65.6 kg Body Mass Index (BMI) 23.3 Physical Exam Narrative General: Alert, oriented, no apparent distress HEENT: Atraumatic, normocephalic Eyes: Anicteric, normal conjunctiva, extraocular movements grossly intact Neck: Supple Respiratory: Clear to auscultation bilaterally, normal respiratory effort Cardiovascular: Tachycardic, irregularly irregular GI: Soft, nontender, nondistended Extremities: No edema Musculoskeletal: Moving all extremities Neuro: No overt focal neurological deficits Skin: No rashes appreciated Psych: Cooperative Results Lab / Micro Data 11/15/23 14:44 11/15/23 14:44 Labs: Laboratory Results - last 24 hr 11/15/23 14:44: WBC 7.1, RBC 4.23, Hgb 13.0, Hct 38.5, MCV 91.0, MCH 30.7, MCHC 33.8, RDW Std Deviation 39.3, RDW Coeff of Lawanda 11.8, Plt Count 309, MPV 9.1, Immature Gran % (Auto) 0.100, Neut % (Auto) 61.2, Lymph % (Auto) 28.5, [place] % (Auto) 7.3, Eos % (Auto) 2.1, Baso % (Auto) 0.8, Absolute Neuts (auto) 4.3, Absolute Lymphs (auto) 2.02, Nucleated RBC % 0, Sodium 140, Potassium 3.8, C hloride 108 H, Carbon Dioxide 17.0 L, Anion Gap 15, BUN 24 H, Creatinine 1.25 H, Estim Creat Clear Calc 41.44, Est GFR (MDRD) Af Amer 55 L, Est GFR (MDRD) Non-Af 46 L, BUN/Creatinine Ratio 19.2, Glucose 117 H, Calcium 9.2, Magnesium 1.8, Total Bilirubin 0.60, AST 16, ALT 16, Alkaline Phosphatase 48, Troponin I High Sens 28, Total Protein 7.3, Albumin 4.0, Globulin 3.3, Albumin/Globulin Ratio 1.2 Imaging Radiology Impression Chest X-Ray 11/15/23 15:30 IMPRESSION: No radiographic evidence of acute cardiopulmonary disease. Electronically Signed: Tyrone Mejia DO at 15:41 EDT , Assessment & Plan Assessment/Plan (1) SVT (supraventricular tachycardia): (2) Atrial fibrillation: (3) History of depression: PLAN: Plan #SVT/afib rvr/new onset afib -Discussed with wind energy mechanic while patient was still in ED and he was advised to start heparin drip and Cardizem drip -Drips started and cards consult placed -Will obtain echo -Diltiazem p.o. -Continue flecainide -Will check TSH -Given Wellbutrin modulates norepinephrine will hold a.m. dose however patient improved in the morning can resume this, ideally do not want to hold medications for long as possible given patient's current stability with mood but also do not want to exacerbate her tachycardia # History of depression -In remission -Holding a.m. dose of Wellbutrin pending heart rate and status -Continue other medications #GERD -Continue PPI #DVT ppx: Heparin drip Radha Arriaza MD Time spent in the patient's overall evaluation,decision-making process, review of diagnostic data, adjustment of management, discussion with other providers, nursing nursing and ancillary staff involved in patient's care documentation, 55 minutes Charges/Coding Visit Charges Inpatient E&M: 56483 Init Hosp L2
[2023-11-15 16:47] LABS: Reflex Troponin-HS? (from REC) Y
--- NOTE | 2023-11-15 16:50 | NURSING ---
ICU PRAKASH ATRIAL FIBULATION WITH RVR
[2023-11-15 17:12] LABS: Partial Thromboplast Time 27.2 Seconds (24.1-36.2); Prothrombin Time (Protime)PT. 13.5 SECONDS (11.7-14.9)
[2023-11-15] MEDS: Diltiazem 125 MG in Dextrose 5%-Water (100mL Bag) 100 ML IV (17:24)
[2023-11-15] MEDS: Heparin Injection (Vial) 5,000 UNIT/ML VIAL 4000 UNIT IV (18:06)
[2023-11-15] MEDS: HEPARIN/D5w 25,000 UNITS 25,000 UNITS/250 ML IV.SOLN. 8 UNITS CONT INF (18:07)
--- NOTE | 2023-11-15 18:31 | ECHOD_ITS ---
Reason For Study: AFIB Procedure This was a 2D Doppler, Color Flow transthoracic echocardiogram. Exam performed portable in ICU/CCU. Left Ventricle Normal LV size. Left ventricular systolic function is normal. The left ventricular ejection fraction is 65 %. No regional wall motion abnormalities noted. Right Ventricle Normal RV size. Normal systolic function. Atria Normal left atrium. Normal right atrium. Mitral Valve Normal mitral valve. Tricuspid Valve Normal tricuspid valve. Mild tricuspid valve insufficiency. Pulmonary artery systolic pressure is 28 mmHg. Aortic Valve Normal aortic valve. Trisinus/trileaflet aortic valve. Pulmonic Valve Normal pulmonic valve. Great Vessels Normal aortic root. The pulmonary artery is normal size. Normal inferior vena cava. Pericardium/Pleural No pericardial effusion. MMode/2D Measurements & Calculations LVIDd: 4.4 cm IVSd: 0.91 cm LAV(MOD-bp): 42.0 ml LVIDs: 2.7 cm LVPWd: 0.83 cm LAV(MOD-bp) Indexed: 24.2 ml/m2 RVDd: 3.3 cm FS: 39.5 % LAV(MOD-sp2): 39.7 ml LAV(MOD-sp4): 43.3 ml LA dimension(2D): 3.1 cm LVAd ap4: 20.9 cm2 LA A4 area: 16.7 cm2 LVLd ap4: 6.6 cm EDV(MOD-sp4): 55.6 ml EDV(sp4-el): 57.6 ml RA A4 area: 13.0 cm2 TAPSE: 2.6 cm Time Measurements MV dec time: 0.20 sec Doppler Measurements & Calculations MV E max hong: 94.0 cm/sec Lat Peak E' Hong: 15.6 cm/sec Med Peak E' Hong: 8.2 cm/sec MV A max hong: 49.1 cm/sec E/E' lat: 6.0 E/E' med: 11.5 MV E/A: 1.9 MV V2 max: 92.4 cm/sec Ao V2 max: 126.9 cm/sec MV max P.4 mmHg MV dec slope: 472.8 cm/sec2 Ao max P.4 mmHg MV V2 mean: 52.2 cm/sec Ao V2 mean: 88.2 cm/sec MV mean P.3 mmHg Ao mean P.5 mmHg MV V2 VTI: 27.7 cm Ao V2 VTI: 28.0 cm AV (velocity ratio): 0.78 LV V1 max: 95.7 cm/sec PA V2 max: 74.9 cm/sec TR max hong: 245.0 cm/sec LV V1 max P.7 mmHg PA V2 mean: 54.9 cm/sec TR max P.0 mmHg LV V1 mean P.2 mmHg LV V1 mean: 70.9 cm/sec LV V1 VTI: 21.7 cm ECHO/Echo Complete Interpretation Summary Normal LV size. Left ventricular systolic function is normal. The left ventricular ejection fraction is 65 %. No regional wall motion abnormalities noted. Pulmonary artery systolic pressure is 28 mmHg. Ordering Physician: Radha Arriaza Referring Physician: MD Gretchen Dom Performed By: Claudette Molina RCS
--- NOTE | 2023-11-15 18:31 | EKG12_ITS ---
Test Reason : AM EKG Blood Pressure : / mmHG Vent. Rate : 061 BPM Atrial Rate : 061 BPM P-R Int : 212 ms QRS Dur : 100 ms QT Int : 482 ms P-R-T Axes : 071 -04 046 degrees QTc Int : 485 ms Sinus rhythm with 1st degree A-V block Otherwise normal ECG When compared with ECG of 15-NOV-2023 22:50, MANUAL COMPARISON REQUIRED, DATA IS UNCONFIRMED Confirmed by Micheal Hammer ([id number]), editorial assistant MARQUISE VERA ([id number]) on 11/18/2023 10:13:09 AM Referred By: OLINDA Confirmed By:Micheal Hammer
[2023-11-15] MEDS: Magnesium Sulfate 4gm/100mL 4 GM/100 ML IV.SOLN. IV (19:05)
[2023-11-15 19:38] LABS: Troponin-I HS 97 pg/mL (3.0-54.0)
[2023-11-15] MEDS: Flecainide 100 MG Tablet PO (20:40)
[2023-11-15] MEDS: lamoTRIgine 100 MG Tablet 200 MG PO (20:40)
[2023-11-15] MEDS: 0.9% Saline Lock 10 ML Syringe IV (20:40)
[2023-11-15 21:07] LABS: Troponin-I HS 94 pg/mL (3.0-54.0)
[2023-11-15] MEDS: Acetaminophen 325 MG Tablet 650 MG PO (21:54)
[2023-11-16] VITALS (12 sets, daily range): BP systolic 79–114; BP diastolic 41–68; PULSE 58–76; RESP 14–20; TEMP 36.9; O2SAT 95–97; BMI 29.7
[2023-11-16 00:18] LABS: Partial Thromboplast Time 74.7 Seconds (24.1-36.2)
[2023-11-16 03:20] LABS: Hematocrit 37.1 % (37-47); Hemoglobin 12.2 g/dL (12.0-15.0); Mean Corp Hgb Conc 32.9 g/dL (32-36); Mean Corpuscular Hgb 30.8 pg (27.0-32.0); Mean Corpuscular Volume 93.7 fL (81-99); Mean Platelet Vol. 8.9 fl (6.2-12.0); Platelet Count 291 K/mm3 (150-450); RBC Distribution Width CV 11.9 % (11.6-14.6); RBC Distribution Width SD 41.4 fl (35.1-43.9); Red Blood Count 3.96 M/mm3 (4.2-5.4); White Blood Count 8.2 K/mm3 (4.4-11.0)
[2023-11-16 03:49] LABS: Anion Gap 6 (5-15); BUN 21 mg/dL (7-18); BUN/Creat Ratio 21.4 RATIO (10-20); Calcium,Total 8.6 mg/dL (8.5-10.1); Chloride 107 mmol/L (98-107); Creatinine, Serum 0.98 mg/dL (0.55-1.02); EST Glomerular Filtration Rate 60 mL/min (>60); Est Glom Filt Rate - Afr Amer 73 mL/min (>60); Estimated Creatinine Clearance 57.46 ml/min; Glucose 102 mg/dL (74-106); Magnesium 3.1 mg/dL (1.6-2.6); Potassium 3.7 mmol/L (3.5-5.1); Sodium Level 138 mmol/L (136-145); Thyroid Stim Hormone (TSH) 3.01 uIU/mL (0.358-3.74)
[2023-11-16] MEDS: 0.9% Saline Lock 10 ML Syringe IV (06:19)
[2023-11-16 06:49] LABS: Partial Thromboplast Time 53.3 Seconds (24.1-36.2)
--- NOTE | 2023-11-16 07:22 | PCM.CONS.C ---
Assessment & Plan Assessment/Plan (1) SVT (supraventricular tachycardia): PLAN: She does have a history of supraventricular tachycardia. She has been having some recurrences for which she saw the heavy equipment supervisor. At this time the plan is for her to undergo EP study with review to ablation. I would not make any changes at this particular time she will continue on the current dose of the flecainide and we will attempt to expedite her ablation. I would recommend increasing the diltiazem 180 mg in a.m. and 120 mg in p.m. (2) Paroxysmal atrial flutter: PLAN: She did appear to have an atrial flutter with 2: 1 conduction. She has eventually converted back to sinus rhythm. My recommendation is that even though she has low [id number] score I would recommend temporarily putting her on Eliquis, obtain an echocardiogram to assess her ventricular function and atrial size and then discharging her for outpatient follow-up. We will attempt to expedite her cardioversion. I have discussed the above with her she understands and agrees to proceed. Thank you for allowing me to participate in the care of your patient. Please don't hesitate to call if any issues arise. HPI Consult Data Date of Consult: 11/16/23 HPI Narrative HPI Narrative: SANTIAGO GUADALUPE, is a 68 F who presents to the emergency room with palpitations. She called the EMS because she was having these palpitations and the EMS prepared an EKG which demonstrated narrow complex tachycardia with a rate of close to 200 bpm. In the emergency room she was treated with intravenous adenosine and eventually intravenous Cardizem. She was also started on heparin. She was admitted to the intensive care unit. She eventually converted back to sinus rhythm later in the night. She does have a history of a narrow complex tachycardia and that she remember had been seen at [facility] and underwent slow pathway ablation for typical AV jaleel reentrant tachycardia in 2019 at [facility]. After that she has had recurrences of the above and was placed on beta-arnel and she developed significant fatigue on this. He was eventually converted to diltiazem and flecainide which she has tolerated somewhat. She has however had occasional breakthrough episodes and due to this she was referred to see the heavy equipment supervisor in [place]. She apparently has been scheduled for repeat ablation sometime in January. She has been compliant with her medications she has not missed any dosages and her [id number] score is noted to be 1 and that she has not been on anticoagulation. She states she had an episode of SVT in March, and she states that she is in the process of scheduling an ablation with Dr. Laird. From a cardiac standpoint, the patient is doing well. She does acknowledge palpitations. She describes this as an abnormal beat, and bursts of SVT, but nothing sustained since the increase of diltiazem. She denies chest pain, pressure or heaviness. She denies SOB, Orthopnea, and PND. She does not have bleeding issues; no blood in urine, stool or nosebleeds. She denies any decrease in energy level, myalgias, or claudication. She does not have edema, or sudden weight gain. She denies dizziness, lightheadedness, syncopal or near syncopal episodes, and headaches. [facility] Medical History Social anxiety disorder Major depressive disorder, recurrent severe without psychotic features Hypersomnia Finding of multiple premature atrial contractions by electrocardiography Daytime hypersomnia Obesity Intermittent palpitations AVNRT (AV jaleel re-entry tachycardia) Cervical spondylosis without myelopathy GERD (gastroesophageal reflux disease) History of depression Home Medications ?Medication ?Instructions ?Recorded ?Last Taken ?Type omeprazole 40 mg capsule,delayed 40 mg PO DAILY gerd 04/05/15 07/17/19 History release alprazolam 0.5 mg tablet 0.5 mg PO DAILY PRN anxiety 07/26/19 Unknown History bupropion HCl 100 mg tablet,12 hr 100 mg PO DAILY 06/19/21 Unknown History sustained-release (Wellbutrin SR) lamotrigine 150 mg tablet 200 mg PO QHS 06/19/21 Unknown History (Lamictal) sertraline 50 mg tablet (Zoloft) 50 mg PO DAILY 30 days #30 tabs 09/18/21 Unknown Rx estradiol 0.01% (0.1 mg/gram) 1 appful vaginal 2XW 10/17/22 Unknown History vaginal cream estradiol 0.5 mg tablet 0.5 mg PO DAILY 10/17/22 Unknown History medroxyprogesterone 2.5 mg tablet 2.5 mg PO DAILY 10/17/22 Unknown History flecainide 100 mg tablet 100 mg PO Q12H #180 tabs 06/30/23 Unknown Rx diltiazem HCl 120 mg 120 mg PO BID #180 caps 09/02/23 Unknown Rx capsule,extended release 24 hr Allergy/AdvReac Type Severity Reaction Status Date / Time metoprolol AdvReac severe Verified 11/15/23 14:21 fatigue Family History Father Colon cancer Daughter Thyroid disorder Surgical History History of radiofrequency ablation procedure for cardiac arrhythmia (10/24/19) History of tubal ligation uterin ablation Social History Smoking Status: Never smoker alcohol intake: current alcohol intake frequency: holidays/special occasions only caffeine: Yes Type: coffee Number of servings: 1 ROS Constitutional Constitutional: Denies fever(s) or weight loss Eyes Eyes: Reports systems reviewed and no addt'l complaints, except as documented ENT HEENT: Reports systems reviewed and no addt'l complaints, except as documented Cardiovascular Cardiovascular: Denies chest pain at rest, chest pain with activity, dyspnea at rest, dyspnea on exertion, edema, palpitations or paroxysmal nocturnal dyspnea Respiratory/Chest Respiratory/Chest: Denies dyspnea on exertion, productive cough, shortness of breath at rest or shortness of breath with exertion Gastrointestinal Gastrointestinal: Denies change in bowel habits, nausea, vomiting or weight changes Genitourinary Genitourinary: Denies difficulty urinating Musculoskeletal Musculoskeletal: Denies joint stiffness or muscle weakness Integumentary Integumentary: Denies lesions Neurologic Neurologic: Denies dizziness or syncope Psychiatric Psychiatric: Denies anxiety Endocrine Endocrinology: Denies excessive sweating or fatigue Hematologic/Lymphatic Hematologic/Lymphatic: Denies anemia Allergic/Immunologic Allergic/Immunologic: Denies seasonal rhinorrhea Physical Exam Const alert, oriented x3 and no apparent distress General Appearance: cooperative HEENT hearing grossly normal bilaterally Head and Scalp: atraumatic Eyes EOMs intact bilaterally Neck General: normal visual inspection Chest inspection of chest normal and palpation of chest normal Resp normal respiratory effort Auscultation: clear to auscultation bilaterally Cardio regular rate, regular rhythm, S1 normal heart sound and S2 normal heart sound Jugular Venous Distention: JVD GI normal to inspection, nondistended, normoactive bowel sounds Extremity normal capillary refill and no pedal edema Peripheral Pulses: Yes pulses 2+ throughout and femoral pulses present Skin no rashes or lesions noted Neuro oriented x3 and CN's II-XII intact bilaterally Psych Appearance: grossly normal and appropriate Risk Stratification Risk Stratification Applicable: No Objective Data Vital Signs: Vital Signs Temp Pulse Resp BP Pulse Ox O2 Del Method O2 Flow Rate 98.4 F 60 14 95/64 96 Room Air 5 11/16/23 03:00 11/16/23 07:00 11/16/23 07:00 11/16/23 07:00 11/16/23 07:00 11/16/23 07:00 11/15/23 14:40 Oxygen Flow Rate (L/min) 5 Oxygen Delivery Method Room Air Weight: 174 lb 2.643 oz Body Mass Index (BMI) 29.7 Intake & Output: Intake and Output for Last 24 Hours 11/14/23 11/15/23 11/16/23 23:59 23:59 23:59 Intake Total 3059.25 / 3259.25 395.23 / 395.23 Output Total 1150 / 1500 350 / 350 Balance 1909.25 / 1759.25 45.23 / 45.23 Lab / Micro Data 11/16/23 03:05 11/16/23 03:05 Labs: Laboratory Results - last 24 hr 11/15/23 14:44: WBC 7.1, RBC 4.23, Hgb 13.0, Hct 38.5, MCV 91.0, MCH 30.7, MCHC 33.8, RDW Std Deviation 39.3, RDW Coeff of Lawanda 11.8, Plt Count 309, MPV 9.1, Immature Gran % (Auto) 0.100, Neut % (Auto) 61.2, Lymph % (Auto) 28.5, Love % (Auto) 7.3, Eos % (Auto) 2.1, Baso % (Auto) 0.8, Absolute Neuts (auto) 4.3, Absolute Lymphs (auto) 2.02, Nucleated RBC % 0, Sodium 140, Potassium 3.8, Chloride 108 H, Carbon Dioxide 17.0 L, Anion Gap 15, BUN 24 H, Creatinine 1.25 H, Estim Creat Clear Calc 41.44, Est GFR (MDRD) Af Amer 55 L, Est GFR (MDRD) Non-Af 46 L, BUN/Creatinine Ratio 19.2, Glucose 117 H, Calcium 9.2, Magnesium 1.8, Total Bilirubin 0.60, AST 16, ALT 16, Alkaline Phosphatase 48, Troponin I High Sens 28, Total Protein 7.3, Albumin 4.0, Globulin 3.3, Albumin/Globulin Ratio 1.2 11/15/23 16:32: PT 13.5, INR 1.0, APTT 27.2 11/15/23 17:10: Troponin I High Sens 97 H 11/15/23 20:40: Troponin I High Sens 94 H 11/16/23 00:00: APTT 74.7 H 11/16/23 03:05: WBC 8.2, RBC 3.96 L, Hgb 12.2, Hct 37.1, MCV 93.7, MCH 30.8, MCHC 32.9, RDW Std Deviation 41.4, RDW Coeff of Lawanda 11.9, Plt Count 291, MPV 8.9, Sodium 138, Potassium 3.7, Chloride 107, Carbon Dioxide 25.0, Anion Gap 6, BUN 21 H, Creatinine 0.98, Estim Creat Clear Calc 57.46, Est GFR (MDRD) Af Amer 73, Est GFR (MDRD) Non-Af 60, BUN/Creatinine Ratio 21.4 H, Glucose 102, Calcium 8.6, Magnesium 3.1 H, TSH 3.01 11/16/23 06:20: APTT 53.3 H Cardiology Labs/Tests 11/15/23 14:44: WBC 7.1, RBC 4.23, Hgb 13.0, Hct 38.5, MCV 91.0, MCH 30.7, MCHC 33.8, Plt Count 309, MPV 9.1, Immature Gran % (Auto) 0.100, Neut % (Auto) 61.2, Lymph % (Auto) 28.5, Love % (Auto) 7.3, Eos % (Auto) 2.1, Baso % (Auto) 0.8, Absolute Neuts (auto) 4.3, Nucleated RBC % 0, Sodium 140, Potassium 3.8, Chloride 108 H, Carbon Dioxide 17.0 L, Anion Gap 15, BUN 24 H, Creatinine 1.25 H, Est GFR (MDRD) Af Amer 55 L, Est GFR (MDRD) Non-Af 46 L, BUN/Creatinine Ratio 19.2, Glucose 117 H, Calcium 9.2, Magnesium 1.8, Total Bilirubin 0.60 11/15/23 16:32: PT 13.5, INR 1.0, APTT 27.2 11/16/23 00:00: APTT 74.7 H 11/16/23 03:05: WBC 8.2, RBC 3.96 L, Hgb 12.2, Hct 37.1, MCV 93.7, MCH 30.8, MCHC 32.9, Plt Count 291, MPV 8.9, Sodium 138, Potassium 3.7, Chloride 107, Carbon Dioxide 25.0, Anion Gap 6, BUN 21 H, Creatinine 0.98, Est GFR (MDRD) Af Amer 73, Est GFR (MDRD) Non-Af 60, BUN/Creatinine Ratio 21.4 H, Glucose 102, Calcium 8.6, Magnesium 3.1 H 11/16/23 06:20: APTT 53.3 H Rhythm: EKG: ECHO: Stress Test: Cardiac Cath: PCI: CT Surgery: Holter monitor: EPS: PPM: CXR: Chest CT Scan: Radiography Diagnostic Testing: Radiology Impression Chest X-Ray 11/15/23 15:30 IMPRESSION: No radiographic evidence of acute cardiopulmonary disease. Electronically Signed: Tyrone Mejia DO at 15:41 EDT ,
[2023-11-16] MEDS: Pantoprazole Sodium 40 MG Tablet PO (08:00)
[2023-11-16] MEDS: Sertraline 50 MG Tablet PO (08:00)
[2023-11-16] MEDS: Estradiol 0.5 MG Tablet PO (08:00)
[2023-11-16] MEDS: Flecainide 100 MG Tablet PO (08:00)
[2023-11-16] MEDS: APIXABAN 5 MG TABLET PO (08:00)
[2023-11-16] MEDS: dilTIAZem CD 180 MG Capsule PO (08:50)
--- NOTE | 2023-11-16 10:00 | EKG12_ITS ---
Test Reason : SINUS RHYTHM Blood Pressure : / mmHG Vent. Rate : 061 BPM Atrial Rate : 061 BPM P-R Int : 228 ms QRS Dur : 098 ms QT Int : 458 ms P-R-T Axes : 039 -04 043 degrees QTc Int : 461 ms Sinus rhythm with 1st degree A-V block Otherwise normal ECG When compared with ECG of 15-NOV-2023 14:35, MANUAL COMPARISON REQUIRED, DATA IS UNCONFIRMED Confirmed by Micheal Hammer ([id number]), managing editor MARQUISE VERA ([id number]) on 11/18/2023 10:14:01 AM Referred By: OLINDA Confirmed By:Micheal Hammer
--- NOTE | 2023-11-16 10:35 | CASEMGMT ---
VANI STERN Assessment: Face to Face with pt for initial transition planning/care coordination assessment. RN JARRED introduced self and role at [facility], pt voices understanding and consents to assessment. Pt is A&O x4 and answers all questions appropriately at this time. Care providers, pharmacy, and demographics verified/updated. Strata: 1 Admitting Dx: A-FIB with RVR [facility] Specialists: Maxime, Workers' Compensation Claims Examiner; Sisi, qa lead. Preferred Pharmacy: [facility] Insurance: [facility], [facility] Prescription Benefit: yes LNOK: Agustin, Living Arrangements: Pt lives with in a 2 story home with 2 steps to enter. ADLs: Pt states I with ADLS and IADLS. Transportation: Pt drives self and denies concerns with transportation. DME: Denies HHC/SNF: Denies Hx of. Pt states no concerns with going home at time of dc. Pt states no further concerns/needs. CM to follow. Advised pt to ask CM if any further question/concerns/needs arise, voices understanding. Pt Goal: Home no needs. Plan: Home, CM to follow plan of care. Ashly LUDWIG CM
--- NOTE | 2023-11-16 12:33 | DCINST_ITS ---
Discharge Instructions Diet Discharge Diet: No restrictions Activity Discharge Activity: No Restrictions Follow Up Care Test Results: Test results from this visit will be discussed in further detail at your follow-up appointment, if applicable. Discharge Plan Admission Admit Date/Time: 11/15/23 16:44 Primary Reason for Your Visit: Elevated heart rate Attending Provider: Ferdinand Abraham Primary Care Provider: Dom Godinez Consulting Providers: Anand Little; Radha Arriaza Instructions Additional Instructions / Restrictions: Please start taking diltiazem 180 mg during the day; continue taking 120 mg at night. Start taking Eliquis 5 mg twice daily. Our twisting frame changer will work on expediting follow-up with your [place] twisting frame changer. Discharge Orders/Prescriptions Prescriptions: New diltiazem HCl 180 mg Capsule,Extended Release 24hr 180 mg PO DAILY 30 Days Qty: 30 0RF diltiazem HCl 120 mg Capsule,Extended Release 24hr 120 mg PO HS 30 Days Qty: 30 0RF Eliquis 5 mg Tablet 5 mg PO BID 30 Days Qty: 60 0RF Continued alprazolam 0.5 mg tablet 0.5 mg PO DAILY PRN (Reason: anxiety) Patient Comments: TAKE 1 TABLET BY MOUTH ONCE DAILY FOR 20 DAYS. bupropion HCl [Wellbutrin SR] 100 mg tablet sustained-release 12 hr 100 mg PO DAILY lamotrigine [Lamictal] 150 mg tablet 200 mg PO QHS medroxyprogesterone 2.5 mg tablet 2.5 mg PO DAILY estradiol 0.5 mg tablet 0.5 mg PO DAILY estradiol 0.01 % (0.1 mg/gram) cream 1 appful vaginal 2XW omeprazole 40 MG capsule 40 mg PO DAILY sertraline [Zoloft] 50 mg tablet 50 mg PO DAILY 30 Days Qty: 30 1RF flecainide 100 mg tablet 100 mg PO Q12H Qty: 180 3RF Discontinued diltiazem HCl 120 mg capsule,extended release 24hr 120 mg PO BID Qty: 180 3RF Referrals / Follow Up: Dom Godinez MD [Primary Care Provider] - Disposition Disposition (needs filled in before D/C Order can be placed): Home, Self Care
--- NOTE | 2023-11-16 12:36 | DS.PCM_ITS ---
Providers Date of Admission: 11/15/23 Date of Discharge: 11/16/23 Primary Care Physician: Dr. Dom Godinez MD Consultations 11/15/23 18:31 Consult: Cardiology Routine Consulting Provider: Anand Little Reason for Consult: SVT, new afib, on cardizem gtt EMERGENT Consult: No MD Notified: Yes Date Notified: 11/15/23 Time Notified: 16:47 Method of Notification: Verbal Reason For Visit: ATRIAL FIBRILLATION WITH RVR Diagnosis Discharge Diagnosis (1) SVT (supraventricular tachycardia): Status: Acute Code(s): I47.1 - Supraventricular tachycardia (2) Paroxysmal atrial flutter: Status: Acute Code(s): I48.92 - Unspecified atrial flutter Medications at Discharge Home Medications omeprazole 40 mg capsule,delayed release 40 mg PO DAILY gerd 04/05/15 alprazolam 0.5 mg tablet 0.5 mg PO DAILY PRN anxiety 07/26/19 bupropion HCl 100 mg tablet,12 hr sustained-release (Wellbutrin SR) 100 mg PO DAILY 06/19/21 lamotrigine 150 mg tablet (Lamictal) 200 mg PO QHS 06/19/21 sertraline 50 mg tablet (Zoloft) 50 mg PO DAILY 30 days #30 tabs 09/18/21 estradiol 0.01% (0.1 mg/gram) vaginal cream 1 appful vaginal 2XW 10/17/22 estradiol 0.5 mg tablet 0.5 mg PO DAILY 10/17/22 medroxyprogesterone 2.5 mg tablet 2.5 mg PO DAILY 10/17/22 flecainide 100 mg tablet 100 mg PO Q12H #180 tabs 06/30/23 apixaban 5 mg tablet (Eliquis) 5 mg PO BID 30 days #60 tabs 11/16/23 diltiazem HCl 120 mg capsule,extended release 24 hr 120 mg PO HS 30 days #30 caps 11/16/23 diltiazem HCl 180 mg capsule,extended release 24 hr 180 mg PO DAILY 30 days #30 caps 11/16/23 Hospital Course Operations None Procedures EKG, Transthoracic echo and - (Chest x-ray) Summary of Care Provided Minutes Spent on Discharge: 35 Hospital Course: Patient is a 68-year-old female who presented to [facility] ED on 11/15/2023 with elevated heart rate. Short hospital course as noted below. Patient discharged home in stable condition on 11/15. 1. SVT, new onset paroxysmal A-fib/flutter ? Cardiology followed. Known history of SVT, previously followed with EP physician at [facility] and had ablation done back in 2019. She has had recurrence of SVT since the ablation. No medications on admit of diltiazem and flecainide. Presented with heart rate in the 190s, did not resolved with doses of adenosine. Was unclear if underlying rhythm was SVT versus new A-fib or flutter. Started on Cardizem drip and heparin drip on admission and did have conversion back to normal sinus rhythm. Per cardiology, suspected that patient had atrial flutter w/ 2:1 conduction given her telemetry findings. Echo was unremarkable. She was transitioned back to p.o. Cardizem and flecainide on hospital day 2 without issue. Cardiology did increase to Cardizem 180 mg in the morning, will continue 120 mg in the evening. Will start Eliquis on discharge. Patient was already scheduled to undergo EP study w/ ablation with cardiology in [employer]; our freight sales broker will call to attempt to expedite this. Discharged home in stable condition. 2. History of depression ? Stable. Continue home bupropion, Lamictal, sertraline and alprazolam as needed. 3. GERD ? Continue home PPI. Total clinical time spent by myself addressing the patient's medical issues, reviewing all the data, and collaborating with patient's care team: 35 minutes. Physical Exam Const alert, oriented x3, no apparent distress, average body habitus, healthy appearing and well nourished Constitutional Narrative: Pleasant middle-age female, appears younger than stated age, sitting up comfortably in bed, conversing normally, no acute distress. General Appearance: cooperative, comfortable, well kempt and well developed HEENT normocephalic, head/scalp atraumatic, hearing grossly normal bilaterally, nasal mucous membranes and turbinates normal and moist oral mucous membranes Eyes PERRL, EOMs intact bilaterally and conjunctivae normal Neck full ROM Chest inspection of chest normal Resp normal respiratory effort, normal air movement, no use of accessory muscles and clear to auscultation bilaterally Cardio regular rate, regular rhythm, no murmurs and peripheral pulses 2+ throughout GI normal to inspection, nondistended, normoactive bowel sounds, soft to palpation, non-tender and non-distended Back/Spine normal ROM Extremity normal to inspection, full ROM and no pedal edema Skin no rashes or lesions noted Neuro no focal motor deficits and no sensory deficits noted Speech: speech normal Psych mental status grossly normal Weight / BMI Weight Weight: 79 kg Body Mass Index (BMI) 29.7 ABG / Lab / Microbiology Data 11/16/23 03:05 11/16/23 03:05 Laboratory: Laboratory Results - last 24 hr 11/15/23 14:44: WBC 7.1, RBC 4.23, Hgb 13.0, Hct 38.5, MCV 91.0, MCH 30.7, MCHC 33.8, RDW Std Deviation 39.3, RDW Coeff of Lawanda 11.8, Plt Count 309, MPV 9.1, Immature Gran % (Auto) 0.100, Neut % (Auto) 61.2, Lymph % (Auto) 28.5, Storey % (Auto) 7.3, Eos % (Auto) 2.1, Baso % (Auto) 0.8, Absolute Neuts (auto) 4.3, Absolute Lymphs (auto) 2.02, Nucleated RBC % 0, Sodium 140, Potassium 3.8, C hloride 108 H, Carbon Dioxide 17.0 L, Anion Gap 15, BUN 24 H, Creatinine 1.25 H, Estim Creat Clear Calc 41.44, Est GFR (MDRD) Af Amer 55 L, Est GFR (MDRD) Non-Af 46 L, BUN/Creatinine Ratio 19.2, Glucose 117 H, Calcium 9.2, Magnesium 1.8, Total Bilirubin 0.60, AST 16, ALT 16, Alkaline Phosphatase 48, Troponin I High Sens 28, Total Protein 7.3, Albumin 4.0, Globulin 3.3, Albumin/Globulin Ratio 1.2 11/15/23 16:32: PT 13.5, INR 1.0, APTT 27.2 11/15/23 17:10: Troponin I High Sens 97 H 11/15/23 20:40: Troponin I High Sens 94 H 11/16/23 00:00: APTT 74.7 H 11/16/23 03:05: WBC 8.2, RBC 3.96 L, Hgb 12.2, Hct 37.1, MCV 93.7, MCH 30.8, MCHC 32.9, RDW Std Deviation 41.4, RDW Coeff of Lawanda 11.9, Plt Count 291, MPV 8.9, Sodium 138, Potassium 3.7, Chloride 107, Carbon Dioxide 25.0, Anion Gap 6, BUN 21 H, Creatinine 0.98, Estim Creat Clear Calc 57.46, Est GFR (MDRD) Af Amer 73, Est GFR (MDRD) Non-Af 60, BUN/Creatinine Ratio 21.4 H, Glucose 102, Calcium 8.6, Magnesium 3.1 H, TSH 3.01 11/16/23 06:20: APTT 53.3 H Radiography Diagnostic Testing: Radiology Impression Chest X-Ray 11/15/23 15:30 IMPRESSION: No radiographic evidence of acute cardiopulmonary disease. Electronically Signed: Tyrone Mejia DO at 15:41 EDT , Echocardiogram 11/15/23 18:31 Interpretation Summary Normal LV size. Left ventricular systolic function is normal. The left ventricular ejection fraction is 65 %. No regional wall motion abnormalities noted. Pulmonary artery systolic pressure is 28 mmHg. Ordering Physician: Radha Arriaza Referring Physician: MD Gretchen Dom Performed By: Claudette Molina RCS D/C Instructions Discharge Diet: No restrictions Meaningful Use Info Meaningful Use Meaningful Use Diagnoses (Choose all that apply): None applicable Ischemic Stroke Statin Dosing Therapy Reference: STATIN DOSE THERAPY REFERENCE: * Patients > 75 years receive moderate or high dose statin therapy. * Patients 75 years or YOUNGER should receive HIGH intensity statin dose unless contraindicated. You will be required to document reason for non-treatment if statin daily dose does not meet guidelines. HIGH DOSE STATIN THERAPY DAILY Atorvastatin > than or = to 40 mg Rosuvastatin > than or = to 20 mg Amlodipine + Atorvastatin > than or = to 2.5/40 mg Ezetimibe + Simvastatin 10/80 mg Simvastatin 80mg Discharge Plan Admission Admit Date/Time: 11/15/23 16:44 Primary Reason for Your Visit: Elevated heart rate Attending Provider: Ferdinand Abraham Primary Care Provider: Dom Godinez Consulting Providers: Anand Little; Radha Arriaza Instructions Additional Instructions / Restrictions: Please start taking diltiazem 180 mg during the day; continue taking 120 mg at night. Start taking Eliquis 5 mg twice daily. Our freight sales broker will work on expediting follow-up with your [employer] freight sales broker. Discharge Orders/Prescriptions Prescriptions: New diltiazem HCl 180 mg Capsule,Extended Release 24hr 180 mg PO DAILY 30 Days Qty: 30 0RF diltiazem HCl 120 mg Capsule,Extended Release 24hr 120 mg PO HS 30 Days Qty: 30 0RF Eliquis 5 mg Tablet 5 mg PO BID 30 Days Qty: 60 0RF Continued alprazolam 0.5 mg tablet 0.5 mg PO DAILY PRN (Reason: anxiety) Patient Comments: TAKE 1 TABLET BY MOUTH ONCE DAILY FOR 20 DAYS. bupropion HCl [Wellbutrin SR] 100 mg tablet sustained-release 12 hr 100 mg PO DAILY lamotrigine [Lamictal] 150 mg tablet 200 mg PO QHS medroxyprogesterone 2.5 mg tablet 2.5 mg PO DAILY estradiol 0.5 mg tablet 0.5 mg PO DAILY estradiol 0.01 % (0.1 mg/gram) cream 1 appful vaginal 2XW omeprazole 40 MG capsule 40 mg PO DAILY sertraline [Zoloft] 50 mg tablet 50 mg PO DAILY 30 Days Qty: 30 1RF flecainide 100 mg tablet 100 mg PO Q12H Qty: 180 3RF Discontinued diltiazem HCl 120 mg capsule,extended release 24hr 120 mg PO BID Qty: 180 3RF Referrals / Follow Up: Dom Godinez MD [Primary Care Provider] - Disposition Disposition (needs filled in before D/C Order can be placed): Home, Self Care Charges/Coding Visit Charges Inpatient E&M: 32103 Disch Hosp >30min
--- NOTE | 2023-11-16 14:49 | CASEMGMT ---
Order for DC placed. Pt has a new Rx for Eliquis and Cardizem. TC to [facility] pharmacy who state that the Eliquis is 340$ after insurance and the Cardizem is 6$ total. This RN CM to pt room at this time. Eliquis free trial/ savings card given. Pt is aware that this can only be used once. Pt states that she will hopes that she will only need to take the med short term, prior to her future procedure. Pt is also aware that she can f/u with her PCP if the continual cost of the Eliquis is too much. Pt states understanding, thanks this VANI STERN, and denies further needs and is ready for DC home today.
== END 2023-11-16 15:15 | disposition home or self-care (01) | DRG 309 ==
LOC: ED 16:04 → ICU 17:07
PROVIDERS: Admitting Provider Internal Medicine; Emergency Provider Emergency Medicine; PCP Family Medicine; Visit Provider Hospitalist
DX: I48.92 Unspecified atrial flutter (principal); I24.89 Other forms of acute ischemic heart disease; F32.A Depression, unspecified; I48.0 Paroxysmal atrial fibrillation; K21.9 Gastro-esophageal reflux disease without esophagitis; I47.10 Supraventricular tachycardia, unspecified; Z80.0 Family history of malignant neoplasm of digestive organs; Z79.01 Long term (current) use of anticoagulants; Z98.51 Tubal ligation status
CPT/HCPCS: 71045; 80048; 80053; 83735; 84443; 84484; 85025; 85027; 85610; 85730; 93005; 93306; 99285; J7030; A4216; J0153; J2405

== ENCOUNTER 2024-01-12 17:23 | Emergency (ER) | payer MEDICARE, OTHER, SELFPAY ==
[2024-01-12 17:24] VITALS: PULSE 133; RESP 21; TEMP 36.6; O2SAT 98; BMI 30.4
--- NOTE | 2024-01-12 17:29 | EKG12_ITS ---
Test Reason : CP Blood Pressure : / mmHG Vent. Rate : 134 BPM Atrial Rate : 000 BPM P-R Int : 000 ms QRS Dur : 096 ms QT Int : 312 ms P-R-T Axes : 000 030 046 degrees QTc Int : 465 ms Supraventricular tachycardia Otherwise normal ECG Confirmed by DULCE MARIA MUELLER, ANGELA ([id number]), film editor supervisor MARQUISE VERA ([id number]) on 01/14/2024 1:18:01 PM Referred By: TB/AK Confirmed By:ANGELA العراقي MD
[2024-01-12 17:51] LABS: Absolute Neutrophil Count 4.8 X10^3/uL (2.0-7.7); Basophil# 0.06 X10^3/uL; Basophil% 0.8 % (0-1); Eosinophil# 0.15 X10^3/uL; Eosinophils% 1.9 % (0-5); Hematocrit 43.1 % (37-47); Hemoglobin 14.6 g/dL (12.0-15.0); Lymphocyte % 28.2 % (19-41); Mean Corp Hgb Conc 33.9 g/dL (32-36); Mean Corpuscular Hgb 31.1 pg (27.0-32.0); Mean Corpuscular Volume 91.9 fL (81-99); Mean Platelet Vol. 8.8 fl (6.2-12.0); Monocyte# 0.55 X10^3/uL; NRBC Flagged by Analyzer 0 % (0-5); Neutrophil # 4.83 X10^3/uL (2.7-7.7); Neutrophil % 61.8 % (47-70); Platelet Count 311 K/mm3 (150-450); RBC Distribution Width CV 12.1 % (11.6-14.6); RBC Distribution Width SD 40.7 fl (35.1-43.9); Red Blood Count 4.69 M/mm3 (4.2-5.4); White Blood Count 7.8 K/mm3 (4.4-11.0)
--- NOTE | 2024-01-12 17:55 | RAD_ITS ---
INDICATION: chest pain EXAMINATION/TECHNIQUE: X-RAY - XR Chest 2 Views COMPARISON: 11/15/2023. FINDINGS: The lungs are clear. The cardiomediastinal silhouette is unremarkable. No pleural effusion or pneumothorax. No acute osseous abnormalities. RAD/Chest PA and Lateral IMPRESSION: No acute radiographic abnormalities. Electronically Signed: Davon Shah MD at 18:22 EDT ,
[2024-01-12 18:05] LABS: International Normalized Ratio 1.1; Prothrombin Time (Protime)PT. 14.5 SECONDS (11.7-14.9)
[2024-01-12 18:06] LABS: Partial Thromboplast Time 29.7 Seconds (24.1-36.2)
[2024-01-12 18:10] LABS: Anion Gap 11 (5-15); BUN 24 mg/dL (7-18); BUN/Creat Ratio 22.6 RATIO (10-20); Calcium,Total 9.8 mg/dL (8.5-10.1); Chloride 105 mmol/L (98-107); Creatinine, Serum 1.06 mg/dL (0.55-1.02); EST Glomerular Filtration Rate 55 mL/min (>60); Est Glom Filt Rate - Afr Amer 67 mL/min (>60); Estimated Creatinine Clearance 53.62 ml/min; Glucose 92 mg/dL (74-106); Potassium 3.8 mmol/L (3.5-5.1); Sodium Level 136 mmol/L (136-145); Troponin-I HS (w/2H Reflex) 24 pg/mL (3.0-54.0)
[2024-01-12] MEDS: Aspirin 81 MG TAB.CHEW 324 MG PO (18:11)
[2024-01-12] MEDS: 0.9% Normal Saline (1000mL) 1,000 ML 999 ML IV (18:11)
[2024-01-12 18:23] VITALS: PULSE 126
--- NOTE | 2024-01-12 19:06 | ED.VIS.CHEST ---
HPI History of Present Illness Chief Complaint: Palpitations Narrative Narrative: Patient is a 68-year-old female past medical history of SVT, atrial fibrillation, GERD who presented to the emergency department with a chief complaint of palpitations. Patient states that around 2:00 this afternoon she noted that she started having racing in her heart and felt like she went into supraventricular tachycardia. States that she thought things would get better however she started have some shortness of breath and lightheadedness associated with this. Patient states that she took 2 of her 120 mg of Cardizem's at home 1 hour apart thinking that this would spontaneously convert her back into normal sinus rhythm however was not therefore she came in. States that she is supposed to have an ablation done on Thursday of next week. [facility] Medical History Atrial fibrillation SVT (supraventricular tachycardia) Social anxiety disorder Major depressive disorder, recurrent severe without psychotic features Hypersomnia Finding of multiple premature atrial contractions by electrocardiography Daytime hypersomnia Obesity Intermittent palpitations AVNRT (AV jaleel re-entry tachycardia) Cervical spondylosis without myelopathy GERD (gastroesophageal reflux disease) History of depression Home Medications ?Medication ?Instructions ?Recorded ?Last Taken ?Type omeprazole 40 mg capsule,delayed 40 mg PO DAILY gerd 04/05/15 07/17/19 History release alprazolam 0.5 mg tablet 0.5 mg PO DAILY PRN anxiety 07/26/19 Unknown History bupropion HCl 100 mg tablet,12 hr 100 mg PO DAILY 06/19/21 Unknown History sustained-release (Wellbutrin SR) lamotrigine 150 mg tablet 200 mg PO QHS 06/19/21 Unknown History (Lamictal) sertraline 50 mg tablet (Zoloft) 50 mg PO DAILY 30 days #30 tabs 09/18/21 Unknown Rx estradiol 0.01% (0.1 mg/gram) 1 appful vaginal 2XW 10/17/22 Unknown History vaginal cream estradiol 0.5 mg tablet 0.5 mg PO DAILY 10/17/22 Unknown History medroxyprogesterone 2.5 mg tablet 2.5 mg PO DAILY 10/17/22 Unknown History flecainide 100 mg tablet 100 mg PO Q12H #180 tabs 06/30/23 Unknown Rx diltiazem HCl 120 mg 120 mg PO HS 30 days #30 caps 11/16/23 Unknown Rx capsule,extended release 24 hr apixaban 5 mg tablet (Eliquis) 5 mg PO BID #60 tabs 12/21/23 Unknown Rx diltiazem HCl 180 mg 180 mg PO DAILY 30 days #90 caps 12/30/23 Unknown Rx capsule,extended release 24 hr Allergy/AdvReac Type Severity Reaction Status Date / Time metoprolol AdvReac severe Verified 01/12/24 17:24 fatigue Family History Father Colon cancer Daughter Thyroid disorder Surgical History History of radiofrequency ablation procedure for cardiac arrhythmia (10/24/19) History of tubal ligation uterin ablation Social History Smoking Status: Never smoker alcohol intake: current alcohol intake frequency: holidays/special occasions only caffeine: Yes Type: coffee Number of servings: 1 ROS ROS ED ROS Narrative Constitutional: Denies any fevers, chills, headaches, lightness, dizziness Eyes: Denies change in vision double vision blurry vision Cardiovascular: Complains of palpitations denies chest pain Respiratory: Complains of some shortness of breath with her palpitations denies coughing wheezing Abdomen: Denies abdominal pain nausea vomit diarrhea : Denies any urinary symptoms Neurological: Denies numbness, weakness, tingling Musculoskeletal: Denies back pain Skin: Denies rashes or lesions EXAM Physical Exam Narrative Exam Narrative: General: Patient was lying in bed rest comfortably did not appear to be in acute distress Head: Atraumatic, normocephalic Eyes: PERRL bilateral, EOMI bilateral, no conjunctival injection noted Neck: Soft, supple, trachea midline Cardiovascular: Patient was tachycardic with a rate of 124 beats per minutes Respiratory: Clear to auscultation bilaterally Abdomen: Soft, nondistended, nontender to palpation Extremities: +5/5 strength noted in the bilateral upper and lower extremities, no pedal edema on exam Neurological: Patient is following commands knew that she was at [facility] year is 2023 Skin: Warm, dry, intact Const Vital Signs: 01/12/24 17:23 01/12/24 17:24 01/12/24 18:12 Temperature 97.8 F Temperature Source Oral Pulse Rate 133 H Respiratory Rate 21 H Respiratory Effort Normal Blood Pressure Blood Pressure Mean Pulse Ox 98 Oxygen Delivery Method Room Air Room Air 01/12/24 18:23 01/12/24 20:21 01/12/24 20:46 Temperature Temperature Source Pulse Rate 126 H 71 65 Respiratory Rate 14 12 Respiratory Effort Blood Pressure 114/70 120/69 Blood Pressure Mean 84 86 Pulse Ox 98 98 Oxygen Delivery Method Room Air Room Air MDM MDM MDM Narrative Medical decision making narrative: Patient is a 68-year-old female who presented to the emergency department the chief complaint of being in supraventricular tachycardia. Patient will have a workup performed here on the differential diagnose includes but not limited to supraventricular tachycardia, atrial fibrillation, atrial flutter Patient CBC reviewed and showed no evidence leukocytosis white blood count normal at 7.8, hemoglobin was 14.6, platelet count normal at 311. Patient's INR normal at 1.1, sodium normal 136, potassium was noted be normal at 3.8, creatinine was 1.06. Patient's troponin was noted be 24 with a delta troponin obtained at 76. Patient is EKG originally when she arrived at 1722 was reviewed and showed a rate of 134 bpm sinus tachycardia was read as supraventricular tachycardia by the computer which patient given that she took 2 doses of her oral Cardizem at home was likely controlling her rate to some extent. Did attempt to do a vagal maneuver with the syringe method was unsuccessful. While in the emergency department prior to her getting adenosine the patient spontaneously converted a repeat EKG was obtained which showed normal sinus rhythm with a rate of 76 bpm. Patient did have a third troponin obtained which was elevated to 196. Patient's chest x-ray reviewed and showed no acute cardiopulmonary processes this was reviewed by myself and by radiology. Will discuss case with tea and spice supervisor. Did discuss case with tea and spice supervisor Dr. Villatoro who states that the patient can go home and follow-up with her physician in the outpatient setting as well as the go to her appointment for her ablation. He states that this is likely all secondary to her elevated heart rate. Did discuss results with the patient and she is agreeable with this plan she would like to go home at this point time. Patient has remained in sinus rhythm the entire time since converting here in the emergency department at 1941. Patient was encouraged return with worsening symptoms or any concerns all question concerns answered she was discharged home in stable condition Lab Data Labs: Laboratory Results - last 24 hr 01/12/24 01/12/24 01/12/24 17:44 19:55 21:45 WBC 7.8 RBC 4.69 Hgb 14.6 Hct 43.1 MCV 91.9 MCH 31.1 MCHC 33.9 RDW Std Deviation 40.7 RDW Coeff of Lawanda 12.1 Plt Count 311 MPV 8.8 Immature Gran % (Auto) 0.300 Neut % (Auto) 61.8 Lymph % (Auto) 28.2 Victoria % (Auto) 7.0 Eos % (Auto) 1.9 Baso % (Auto) 0.8 Absolute Neuts (auto) 4.8 Absolute Lymphs (auto) 2.20 Nucleated RBC % 0 PT 14.5 INR 1.1 APTT 29.7 Sodium 136 Potassium 3.8 Chloride 105 Carbon Dioxide 21.0 Anion Gap 11 BUN 24 H Creatinine 1.06 H Estim Creat Clear Calc 53.62 Est GFR (MDRD) Af Amer 67 Est GFR (MDRD) Non-Af 55 L BUN/Creatinine Ratio 22.6 H Glucose 92 Calcium 9.8 Troponin I High Sens 24 76 H 196 H* Radiography Diagnostic Testing: Clinical Impression(s) from Imaging Studies Chest X-Ray 01/12/24 17:55 IMPRESSION: No acute radiographic abnormalities. Electronically Signed: Davon Shah MD at 18:22 EDT , Discharge Plan Triage Chief Complaint: Palpitations ED Provider: Fletcher Joseph Dx/Rx/DC Orders Clinical Impression: Supraventricular tachycardia Prescriptions: No Action alprazolam 0.5 mg tablet 0.5 mg PO DAILY PRN (Reason: anxiety) Patient Comments: TAKE 1 TABLET BY MOUTH ONCE DAILY FOR 20 DAYS. bupropion HCl [Wellbutrin SR] 100 mg tablet sustained-release 12 hr 100 mg PO DAILY lamotrigine [Lamictal] 150 mg tablet 200 mg PO QHS medroxyprogesterone 2.5 mg tablet 2.5 mg PO DAILY estradiol 0.5 mg tablet 0.5 mg PO DAILY estradiol 0.01 % (0.1 mg/gram) cream 1 appful vaginal 2XW omeprazole 40 MG capsule 40 mg PO DAILY sertraline [Zoloft] 50 mg tablet 50 mg PO DAILY 30 Days Qty: 30 1RF diltiazem HCl 120 mg Capsule,Extended Release 24hr 120 mg PO HS 30 Days Qty: 30 0RF flecainide 100 mg tablet 100 mg PO Q12H Qty: 180 3RF Eliquis 5 mg tablet 5 mg PO BID Qty: 60 11RF diltiazem HCl 180 mg capsule,extended release 24hr 180 mg PO DAILY 30 Days Qty: 90 3RF Primary Care Provider: Dom Godinez Referrals: Dom Godinez MD [Primary Care Provider] - Activity Restrictions/Additional Instructions: Return with worsening symptoms or any other concerns. Follow-up with your cardiology team and go to your ablation appointment. Follow with your primary care physician outpatient setting. Print Language: Croatian Disposition Disposition: Home, Self Care
--- NOTE | 2024-01-12 19:40 | EKG12_ITS ---
Test Reason : RHYTHM CONVERSION Blood Pressure : / mmHG Vent. Rate : 076 BPM Atrial Rate : 076 BPM P-R Int : 188 ms QRS Dur : 086 ms QT Int : 398 ms P-R-T Axes : 072 000 046 degrees QTc Int : 447 ms Normal sinus rhythm Normal ECG Confirmed by DULCE MARIA MUELLER, ANGELA ([id number]), magazine editor MARQUISE VERA ([id number]) on 01/14/2024 1:07:58 PM Referred By: Confirmed By:ANGELA العراقي MD
[2024-01-12 19:47] LABS: Reflex Troponin-HS? (from REC) Y
[2024-01-12 20:21] VITALS: BP 114/70; PULSE 71; RESP 14; O2SAT 98
[2024-01-12 20:45] LABS: Troponin-I HS 76 pg/mL (3.0-54.0)
[2024-01-12 20:46] VITALS: BP 120/69; PULSE 65; RESP 12; O2SAT 98
[2024-01-12 22:20] LABS: Troponin-I HS 196 pg/mL (3.0-54.0)
[2024-01-12 22:46] VITALS: BP 117/73; PULSE 69; RESP 16; TEMP 36.8; O2SAT 100
[2024-01-12 23:56] LABS: BNP,B-Type NATRIURETIC PEPTIDE 52.2 pg/mL (0-100)
== END 2024-01-12 22:50 | disposition home or self-care (01) ==
PROVIDERS: Emergency Provider Emergency Medicine; PCP Family Medicine; Visit Provider Emergency Medicine
DX: I47.10 Supraventricular tachycardia, unspecified (principal); I48.91 Unspecified atrial fibrillation; R06.02 Shortness of breath; Z79.01 Long term (current) use of anticoagulants; Z79.899 Other long term (current) drug therapy
CPT/HCPCS: 71046; 80048; 83880; 84484; 85025; 85610; 85730; 93005; 96360; 96361; 99283; J7030; A4216; J0153